=== PATIENT | male | born 1970 | race Caucasian/White ===

== ENCOUNTER 2016-09-29 10:12 | Inpatient (IN) | payer MEDICAID ==
[~2016-09-29] VITALS: Ht 182.9 cm; Wt 82.4 kg
[~2016-09-29 10:12] MED LIST: ALBUTEROL NEB; BROMIDE NEB; CARI-277 PO; MON10T PO; NOR10T PO; OMAL150S SC; OMEP20CA5 PO; PRED-188 PO; PRO-AIR IN; THEO200T26 PO; ZOLP10TA PO; [UNRECOGNIZED DRUG - CODE] PO
[2016-09-29 11:08] LABS: Basophils # (auto) 0 uL; Basophils % (auto) 0.3 % (0.0-2.0); Eosinophils # (auto) 0.3 uL; Eosinophils % (auto) 2.2 % (0.0-7.0); Hematocrit 48.2 % (41.0-53.0); Hemoglobin 15.8 g/dL (13.5-17.5); Lymphocytes # (auto) 2.4 uL; Lymphocytes % (auto) 16.2 % (10.0-50.0); Mean Corpuscular Hemoglobin 29.1 pg (28.0-32.0); Mean Corpuscular Hgb Conc. 32.9 g/dL (32.0-36.0); Mean Corpuscular Volume 88.6 fL (80.0-100.0); Monocytes # (auto) 0.8 uL; Monocytes % (auto) 5.8 % (0.0-12.0); Neutrophils % (auto) 75.5 % (37.0-80.0); Platelet Count (auto) 324 10^3/uL (140-450); Red Cell Distribution Width 14.1 % (11.6-16.0); White Blood Cell 14.6 10^3/uL (4.4-10.8)
[2016-09-29 11:46] LABS: Albumin 3.8 g/dL (3.4-5.0); BUN/Creatinine Ratio 12.6; Bilirubin, Total 0.4 mg/dL (0.2-1.0); Calcium 8.9 mg/dL (8.5-10.1); Total Protein 7.8 g/dL (6.4-8.2)
[2016-09-29] MEDS ORDERED: ALBUTEROL SULF 2.5 MG/0.5ML(0.5%) NEB SOLN NEB ONE (12:00)
[2016-09-29] MEDS ORDERED: IPRATROPIUM BROM 0.5 MG/2.5ML INH SOL NEB ONE (12:00)
[2016-09-29] MEDS ORDERED: SODIUM CHLORIDE 0.9% 1,000 ML IV ONE (12:00)
[2016-09-29] MEDS ORDERED: cefTRIAXone 1GM/50ML D5W 50 ML IV ONE (12:00)
[2016-09-29] MEDS: SODIUM CHLORIDE 0.9% 1,000 ML IV SCH (12:08)
[2016-09-29] MEDS ORDERED: MORPHINE SULF INJ 2 MG/ML SYRINGE 1ML IV PRN (12:15)
[2016-09-29] MEDS ORDERED: LORazepam 0.5 MG TAB PO PRN (12:15)
[2016-09-29] MEDS ORDERED: ACETAMINOPHEN 500 MG TAB PO PRN (12:15)
[2016-09-29] MEDS ORDERED: ALBUTEROL SULF 2.5 MG/0.5ML(0.5%) NEB SOLN NEB PRN (12:15)
[2016-09-29] MEDS ORDERED: TEMAZEPAM 15 MG CAP PO PRN (12:15)
[2016-09-29] MEDS ORDERED: OSELTAMIVIR 75 MG CAP PO ONE (12:15)
[2016-09-29] MEDS ORDERED: DEXTROSE (50%) 50ML SYRG IV PRN (12:15)
[2016-09-29] MEDS ORDERED: PROCHLORPERAZINE EDISYLATE 5 MG/ML 2ML VIAL IV PRN (12:15)
[2016-09-29] MEDS ORDERED: LACTULOSE 20Gm/30ML SOLN PO PRN (12:15)
[2016-09-29] MEDS ORDERED: NITROGLYCERIN 0.4 MG SL TAB SL PRN (12:15)
[2016-09-29] MEDS: HYDROcodone-ACET 5/325MG TAB PO PRN ×2 (13:18→22:09)
[2016-09-29] MEDS: ENOXAPARIN SOD 40 MG/0.4 ML SYRINGE SC SCH (13:18)
[2016-09-29] MEDS: LEVOFLOXACIN 500MG 100 ML IV SCH (13:18)
[2016-09-29] MEDS: methylPREDNISolone SOD SUCC 40 MG/ML VL IV SCH ×2 (13:21→18:10)
[2016-09-29 16:08] VITALS: BP 135/73
[2016-09-29 16:50] VITALS: BP 144/71
[2016-09-29] MEDS: ACCU-CHEK COMFORT CURVE STRIP VI SCH ×2 (17:00→22:14)
[2016-09-29] MEDS: InsuLIN REG 1unit/0.01ml Soln (100units/ml) SC SCH ×2 (17:00→22:19)
[2016-09-29] MEDS: MORPHINE SULF INJ 2 MG/ML SYRINGE 1ML IV PRN (18:31)
[2016-09-29] MEDS: ALBUTEROL SULF 2.5 MG/0.5ML(0.5%) NEB SOLN NEB SCH (19:35)
[2016-09-29] MEDS: IPRATROPIUM BROM 0.5 MG/2.5ML INH SOL NEB SCH (19:35)
[2016-09-29 20:00] VITALS: BP 112/66
[2016-09-29 22:00] VITALS: BP 112/66
[2016-09-29] MEDS ORDERED: THEOPHYLLINE 200 MG PO SCH ×2 (22:00)
[2016-09-29] MEDS: OSELTAMIVIR 75 MG CAP PO SCH (22:09)
[2016-09-30] MEDS: ALBUTEROL SULF 2.5 MG/0.5ML(0.5%) NEB SOLN NEB SCH ×3 (00:40→13:46)
[2016-09-30] MEDS: IPRATROPIUM BROM 0.5 MG/2.5ML INH SOL NEB SCH ×3 (00:47→13:46)
[2016-09-30] MEDS: methylPREDNISolone SOD SUCC 40 MG/ML VL IV SCH ×3 (01:44→13:24)
[2016-09-30] MEDS: SODIUM CHLORIDE 0.9% 1,000 ML IV SCH (01:51)
[2016-09-30 05:00] VITALS: BP 108/66
[2016-09-30 05:56] LABS: Basophils # (auto) 0 uL; Basophils % (auto) 0.3 % (0.0-2.0); Eosinophils # (auto) 0 uL; Hematocrit 45.6 % (41.0-53.0); Hemoglobin 15.1 g/dL (13.5-17.5); Lymphocytes % (auto) 9.1 % (10.0-50.0); Mean Corpuscular Hemoglobin 29.3 pg (28.0-32.0); Mean Corpuscular Hgb Conc. 33.1 g/dL (32.0-36.0); Mean Corpuscular Volume 88.5 fL (80.0-100.0); Mean Platelet Volume 8.5 fL (7.4-10.4); Monocytes # (auto) 0.1 uL; Monocytes % (auto) 0.8 % (0.0-12.0); Neutrophils # (auto) 10.2 uL; Neutrophils % (auto) 89.8 % (37.0-80.0); Platelet Count (auto) 303 10^3/uL (140-450); Red Cell Distribution Width 13.9 % (11.6-16.0); White Blood Cell 11.4 10^3/uL (4.4-10.8)
[2016-09-30 06:23] LABS: Albumin 3.3 g/dL (3.4-5.0); BUN/Creatinine Ratio 21.3; Bilirubin, Total 0.4 mg/dL (0.2-1.0); Calcium 9.1 mg/dL (8.5-10.1); Potassium 4.5 mmol/L (3.5-5.1); Total Protein 7.1 g/dL (6.4-8.2)
[2016-09-30] MEDS: ACCU-CHEK COMFORT CURVE STRIP VI SCH ×2 (06:27→11:30)
[2016-09-30] MEDS: InsuLIN REG 1unit/0.01ml Soln (100units/ml) SC SCH ×2 (06:27→11:30)
[2016-09-30 08:00] VITALS: BP 118/62
[2016-09-30 09:00] VITALS: BP 118/65
[2016-09-30] MEDS ORDERED: ITRACONAZOLE 100 MG CAP PO SCH (10:00)
[2016-09-30] MEDS ORDERED: CARISOPRODOL 350 MG TAB PO SCH (10:00)
[2016-09-30] MEDS ORDERED: MONTELUKAST SODIUM 10 MG TAB PO SCH (10:00)
[2016-09-30] MEDS ORDERED: PANTOPRAZOLE 40 MG TAB PO SCH (10:00)
[2016-09-30] MEDS ORDERED: OMEPRAZOLE 20MG/10ML ORAL SUSP PO SCH (10:00)
[2016-09-30] MEDS: OSELTAMIVIR 75 MG CAP PO SCH (10:41)
[2016-09-30] MEDS: ENOXAPARIN SOD 40 MG/0.4 ML SYRINGE SC SCH (10:42)
[2016-09-30] MEDS: MORPHINE SULF INJ 2 MG/ML SYRINGE 1ML IV PRN (10:42)
[2016-09-30] MEDS: LEVOFLOXACIN 500MG 100 ML IV SCH (10:47)
[2016-09-30 12:50] VITALS: BP 122/68
[2016-09-30 16:34] VITALS: BP 120/70
== END 2016-09-30 17:10 | disposition home or self-care (01) | DRG 720 ==
LOC: EDBD 10:12 → ER 10:13 → TELE 10:14 → TELE-WESTW 15:40
PROVIDERS: ADMIT Internal Medicine; ATTEND Internal Medicine
DX: A41.9 Sepsis, unspecified organism (principal); B44.9 Aspergillosis, unspecified; J44.0 Chronic obstructive pulmonary disease with (acute) lower respiratory infection; J18.9 Pneumonia, unspecified organism; J45.901 Unspecified asthma with (acute) exacerbation; J44.1 Chronic obstructive pulmonary disease with (acute) exacerbation; K21.9 Gastro-esophageal reflux disease without esophagitis; J20.9 Acute bronchitis, unspecified; E11.9 Type 2 diabetes mellitus without complications; F17.210 Nicotine dependence, cigarettes, uncomplicated; M19.90 Unspecified osteoarthritis, unspecified site; Z82.49 Family history of ischemic heart disease and other diseases of the circulatory system; Z88.2 Allergy status to sulfonamides
CPT/HCPCS: 36415; 71020; 80053; 80061; 82962; 83036; 85025; 87040; 93005; 94640; 96361; 96365; 99291; J0696; J1815; J1956

== ENCOUNTER 2018-06-10 07:15 | Emergency (ER) | payer MEDICAID ==
[~2018-06-10] VITALS: Ht 182.9 cm; Wt 83.9 kg
[~2018-06-10 07:15] MED LIST changes: -CARI-277 PO; -MON10T PO; -NOR10T PO; -OMAL150S SC; -OMEP20CA5 PO; -PRED-188 PO; -PRO-AIR IN; -THEO200T26 PO; -ZOLP10TA PO; -[UNRECOGNIZED DRUG - CODE] PO
[2018-06-10 07:41] VITALS: BP 115/80
== END 2018-06-10 08:10 | disposition home or self-care (01) ==
LOC: ER 07:15
DX: J02.9 Acute pharyngitis, unspecified (principal); J45.909 Unspecified asthma, uncomplicated; J44.9 Chronic obstructive pulmonary disease, unspecified; E11.9 Type 2 diabetes mellitus without complications; K21.9 Gastro-esophageal reflux disease without esophagitis; F17.210 Nicotine dependence, cigarettes, uncomplicated
CPT/HCPCS: 71046; 93005

== ENCOUNTER 2018-07-30 19:53 | Emergency (ER) | payer MEDICAID ==
[~2018-07-30] VITALS: Ht 182.9 cm; Wt 85.7 kg
[2018-07-30 20:14] VITALS: BP 116/64
[2018-07-30 22:13] LABS: Basophils # (auto) 0 uL; Basophils % (auto) 0.5 % (0.0-2.0); Eosinophils # (auto) 0.2 uL; Eosinophils % (auto) 2.2 % (0.0-7.0); Hematocrit 42.2 % (41.0-53.0); Hemoglobin 14.4 g/dL (13.5-17.5); Lymphocytes # (auto) 1.6 uL; Lymphocytes % (auto) 16.5 % (10.0-50.0); Mean Corpuscular Hgb Conc. 34.1 g/dL (32.0-36.0); Monocytes # (auto) 0.7 uL; Monocytes % (auto) 6.9 % (0.0-12.0); Neutrophils % (auto) 73.9 % (37.0-80.0); Platelet Count (auto) 322 10^3/uL (140-450); Red Cell Distribution Width 13.8 % (11.8-14.3); White Blood Cell 9.5 10^3/uL (4.4-10.8)
[2018-07-30 22:15] LABS: Albumin 3.5 g/dL (3.4-5.0); BUN/Creatinine Ratio 15.8; Calcium 8.4 mg/dL (8.5-10.1); Potassium 3.7 mmol/L (3.5-5.1)
[2018-07-30 22:17] LABS: Bilirubin, Total 0.3 mg/dL (0.2-1.0); Total Protein 7.6 g/dL (6.4-8.2)
[2018-07-30] MEDS ORDERED: cefTRIAXone SOD 1,000 MG VL IM ONE (23:00)
== END 2018-07-30 22:56 | disposition home or self-care (01) ==
LOC: ER 19:58
DX: L03.115 Cellulitis of right lower limb (principal); M19.90 Unspecified osteoarthritis, unspecified site; J44.9 Chronic obstructive pulmonary disease, unspecified; E11.9 Type 2 diabetes mellitus without complications; K21.9 Gastro-esophageal reflux disease without esophagitis; F17.210 Nicotine dependence, cigarettes, uncomplicated; Z88.2 Allergy status to sulfonamides
CPT/HCPCS: 36415; 80053; 85025; 93971; 96372; 99284; J0696

== ENCOUNTER 2019-03-28 10:13 | Inpatient (IN) | payer MEDICAID ==
[~2019-03-28] VITALS: Ht 182.9 cm; Wt 84.9 kg
[2019-03-28] MEDS ORDERED: methylPREDNISolone SOD SUCC 125 MG/2 ML VL IV ONE (10:30)
[2019-03-28] MEDS ORDERED: ALBUTEROL SULF 2.5 MG/0.5ML(0.5%) NEB SOLN HHN ONE (10:30)
[2019-03-28] MEDS ORDERED: IPRATROPIUM BROM 0.5 MG/2.5ML INH SOL HHN ONE (10:30)
[2019-03-28 11:13] LABS: Basophils # (auto) 0.1 uL; Basophils % (auto) 0.8 % (0.0-2.0); Eosinophils # (auto) 0.3 uL; Eosinophils % (auto) 3.3 % (0.0-7.0); Hematocrit 44.8 % (41.0-53.0); Hemoglobin 15.6 g/dL (13.5-17.5); Lymphocytes % (auto) 20.3 % (10.0-50.0); Mean Corpuscular Hgb Conc. 34.8 g/dL (32.0-36.0); Mean Corpuscular Volume 86.2 fL (80.0-100.0); Monocytes % (auto) 10.4 % (0.0-12.0); Neutrophils # (auto) 6.6 uL; Neutrophils % (auto) 65.2 % (37.0-80.0); Platelet Count (auto) 287 10^3/uL (140-450); Red Blood Cells 5.19 10^6/uL (4.5-5.90); Red Cell Distribution Width 13.9 % (11.8-14.3); White Blood Cell 10.1 10^3/uL (4.4-10.8)
[2019-03-28 11:35] LABS: Alanine Aminotransferase 16 U/L (16-61); Albumin 3.4 g/dL (3.4-5.0); Anion Gap 6 (5-15); Blood Urea Nitrogen 10 mg/dL (7-18); Calcium 8.8 mg/dL (8.5-10.1); Carbon Dioxide 26 mmol/L (21-32); Chloride 106 mmol/L (98-107); Glucose 94 mg/dL (74-106); Potassium 4.1 mmol/L (3.5-5.1); Sodium 138 mmol/L (136-145)
[2019-03-28 11:40] LABS: Alkaline Phosphatase 87 U/L (45-117); Aspartate Aminotransferase 13 U/L (15-37); BUN/Creatinine Ratio 13.2; Bilirubin, Total 0.4 mg/dL (0.2-1.0); GFR African American 141 mL/min; GFR Non-African American 117 mL/min; Total Protein 7.5 g/dL (6.4-8.2)
[2019-03-28] MEDS ORDERED: NITROGLYCERIN 0.4 MG SL TAB SL PRN (12:30)
[2019-03-28] MEDS ORDERED: HYDROcodone-ACET 5/325MG TAB PO PRN (12:30)
[2019-03-28] MEDS ORDERED: ACETAMINOPHEN 500 MG TAB PO PRN (12:30)
[2019-03-28] MEDS ORDERED: ONDANSETRON HCL 4 MG/2 ML VIAL IV PRN (12:30)
[2019-03-28] MEDS ORDERED: MORPHINE SULF INJ 2 MG/ML SYRINGE 1ML IV PRN ×2 (12:30)
[2019-03-28] MEDS ORDERED: methylPREDNISolone SOD SUCC 40 MG/ML VL IV ONE (12:45)
[2019-03-28] MEDS ORDERED: FAMOTIDINE 20 MG TAB PO ONE (12:45)
[2019-03-28] MEDS: cefTRIAXone 1GM/50ML D5W 50 ML IV SCH (13:30)
[2019-03-28] MEDS: AZITHROMYCIN 500MG/ 250ML 250 ML IV SCH (13:30)
[2019-03-28] MEDS: IPRATROPIUM BROM 0.5 MG/2.5ML INH SOL NEB SCH ×3 (14:57→22:55)
[2019-03-28] MEDS: ALBUTEROL SULF 2.5 MG/0.5ML(0.5%) NEB SOLN NEB SCH ×3 (14:57→22:55)
[2019-03-28 15:30] LABS: Alcohol, Urine < 3.0 mg/dL (0-5); Amphetamine Screen, Urine POSITIVE (NEGATIVE); Barbiturate Scree,Urine NEGATIVE (NEGATIVE); Benzodiazephine Screen, Urine NEGATIVE (NEGATIVE); Cannabinoid Screen, Urine NEGATIVE (NEGATIVE); Cocaine Screen, Urine NEGATIVE (NEGATIVE); Opiate Scree,Urine NEGATIVE (NEGATIVE); Phencyclidine Screen, Urine NEGATIVE (NEGATIVE)
[2019-03-28 17:12] VITALS: BP 98/58
[2019-03-28 17:13] VITALS: BP 98/58
--- NOTE | 2019-03-28 17:16 | NUR ---
RECEIVED PATIENT TO THE FLOOR AWAKE ALERT AND ORIENTED, INSTRUCTED THE PATIENT ON THE PLAN OF CARE. BED LOCKED IN LOWEST POSITION.
[2019-03-28 18:32] VITALS: BP 98/58
--- NOTE | 2019-03-28 19:45 | NUR ---
Opening Shift Note Assumed care of patient, awake and alert. No S/S of distress/SOB or pain. Bed in lowest locked position, side rails up x 2, call light within reach. Dinner tray provided, patient tolerating well. Specimen cup provided for sputum sample and to inform staff if any sputum obtained, patient verbalized understanding. Instructed on POC and to call for assist PRN, will continue to monitor for changes Q1hr and PRN.
[2019-03-28 21:00] VITALS: BP 118/68
[2019-03-28] MEDS: methylPREDNISolone SOD SUCC 40 MG/ML VL IV SCH (21:18)
--- NOTE | 2019-03-28 22:00 | NUR ---
Smoking AMA ANGÉLICA GR states they want to leave the floor Against Medical Advice (AMA) to go outside and smoke. Patient encouraged to stay on floor and not smoke. Patient advised of the risks and benefits of leaving AMA to smoke. Patient verbalized understanding and signed required smoking AMA form. Patient ambulated to elevator with steady gait and no s/s of distress. Will continue to monitor.
[2019-03-28] MEDS: BUDESONIDE (INHALATION) 0.5 MG/2 ML NEB NEB SCH (22:55)
--- NOTE | 2019-03-28 23:00 | NUR ---
Rounding Patient lying in bed, eyes closed, respirations even and unlabored, appears asleep. No s/s of distress. Bed in lowest locked position, side rails up x2, call light within reach. Will continue to monitor.
[2019-03-29 04:51] VITALS: BP 105/63
[2019-03-29] MEDS: IPRATROPIUM BROM 0.5 MG/2.5ML INH SOL NEB SCH ×5 (06:11→22:00)
[2019-03-29] MEDS: ALBUTEROL SULF 2.5 MG/0.5ML(0.5%) NEB SOLN NEB SCH ×5 (06:11→22:00)
[2019-03-29] MEDS: BUDESONIDE (INHALATION) 0.5 MG/2 ML NEB NEB SCH ×2 (06:12→18:21)
[2019-03-29 06:40] LABS: Calcium 9.2 mg/dL (8.5-10.1); Potassium 4.3 mmol/L (3.5-5.1)
[2019-03-29 06:42] LABS: BUN/Creatinine Ratio 19.8
--- NOTE | 2019-03-29 07:15 | NUR ---
Closing Note Patient lying in bed, eyes closed, respirations even and unlabored, appears asleep. No s/s of distress. Bed in lowest locked position, side rails up x2, call light within reach. Care endorsed to dayshift RN.
[2019-03-29 08:00] VITALS: BP 113/60
--- NOTE | 2019-03-29 08:00 | NUR ---
OPENING NOTE ASSUMED CARE OF PATIENT AWAKE ALERT AND ORIENTED. NO S/S OF DISTRESS NOTED. PT HAS A COMPLAINT OF CHRONIC BACK PAIN RATED A 7/10. WILL MEDICATE PER MAR AND MD ORDER. PT UPDATED ON POC FOR THE DAY AND ALL QUESTIONS ANSWERED. BED IS IN LOWEST, LOCKED POSITION WITH SIDE RAILS UP X2 AND CALL LIGHT WITHIN REACH. WILL CONTINUE TO MONITOR Q1H AND PRN.
[2019-03-29] MEDS: methylPREDNISolone SOD SUCC 40 MG/ML VL IV SCH ×2 (10:02→21:54)
[2019-03-29] MEDS: FAMOTIDINE 20 MG TAB PO SCH (10:02)
[2019-03-29] MEDS: cefTRIAXone 1GM/50ML D5W 50 ML IV SCH (10:03)
[2019-03-29] MEDS: AZITHROMYCIN 500MG/ 250ML 250 ML IV SCH (10:03)
--- NOTE | 2019-03-29 10:44 | NUR ---
PATIENT C/O SOB PATIENT C/O FEELING SOB. INSPIRATORY AND EXPIRATORY WHEEZING NOTED UPON AUSCULTATION THROUGHOUT LUNG PORRAS. PATIENT HAD JUST RETURNED FROM GOING OUTSIDE TO SMOKE. DISCUSSED WITH PATIENT CORRELATION BETWEEN BREATHING AND RESPIRATORY STATUS. PT VERBALIZED UNDERSTANDING. SPOKE TO RT. BREATHING TREATMENT TO BE ADMINISTERED. Addendum: 03/29/19 at 1157 by Jaelyn Ortiz RN RN SATURATING 98% ON RA.
[2019-03-29 11:50] VITALS: BP 115/70
[2019-03-29 12:43] VITALS: BP 116/68
[2019-03-29 16:25] VITALS: BP 116/64
--- NOTE | 2019-03-29 19:30 | NUR ---
Opening Shift Note Assumed care of patient, eyes closed, respirations even and unlabored, appears asleep. No S/S of distress/SOB or pain. Bed in lowest locked position, side rails up x 2, call light within reach. Instructed on POC and to call for assist PRN, will continue to monitor for changes Q1hr and PRN.
--- NOTE | 2019-03-29 21:58 | NUR ---
Sputum sample Specimen collected and sent to lab. Will continue care.
[2019-03-29 22:00] VITALS: BP 132/63
--- NOTE | 2019-03-29 22:13 | NUR ---
RT NOTE WOKE PT UP TO GIVE BREATHING TX PT REFUSED JUST WANTS TO REST NO RESP DISTRESS NOTED.
[2019-03-30 04:52] VITALS: BP 127/76
[2019-03-30] MEDS: ALBUTEROL SULF 2.5 MG/0.5ML(0.5%) NEB SOLN NEB SCH ×5 (05:58→21:42)
[2019-03-30] MEDS: BUDESONIDE (INHALATION) 0.5 MG/2 ML NEB NEB SCH ×3 (05:58→21:44)
[2019-03-30] MEDS: IPRATROPIUM BROM 0.5 MG/2.5ML INH SOL NEB SCH ×5 (05:58→21:42)
[2019-03-30 07:55] LABS: Basophils # (auto) 0.1 uL; Basophils % (auto) 0.5 % (0.0-2.0); Eosinophils # (auto) 0 uL; Hematocrit 42.1 % (41.0-53.0); Hemoglobin 14.4 g/dL (13.5-17.5); Lymphocytes % (auto) 4.8 % (10.0-50.0); Mean Corpuscular Hemoglobin 29.9 pg (28.0-32.0); Mean Corpuscular Hgb Conc. 34.2 g/dL (32.0-36.0); Mean Corpuscular Volume 87.3 fL (80.0-100.0); Monocytes # (auto) 0.6 uL; Monocytes % (auto) 2.8 % (0.0-12.0); Neutrophils % (auto) 91.9 % (37.0-80.0); Platelet Count (auto) 320 10^3/uL (140-450); Red Blood Cells 4.82 10^6/uL (4.5-5.90); Red Cell Distribution Width 13.9 % (11.8-14.3); White Blood Cell 21.8 10^3/uL (4.4-10.8)
[2019-03-30 08:00] VITALS: BP 120/69
[2019-03-30 08:06] LABS: Albumin 3.1 g/dL (3.4-5.0); BUN/Creatinine Ratio 28.4; Calcium 9.1 mg/dL (8.5-10.1); Potassium 4.4 mmol/L (3.5-5.1)
[2019-03-30 08:18] LABS: Bilirubin, Total 0.1 mg/dL (0.2-1.0); Total Protein 7.1 g/dL (6.4-8.2)
[2019-03-30 09:00] VITALS: BP 120/69
[2019-03-30] MEDS: cefTRIAXone 1GM/50ML D5W 50 ML IV SCH (09:56)
[2019-03-30] MEDS: AZITHROMYCIN 500MG/ 250ML 250 ML IV SCH (09:56)
[2019-03-30] MEDS: FAMOTIDINE 20 MG TAB PO SCH (09:56)
[2019-03-30] MEDS: methylPREDNISolone SOD SUCC 40 MG/ML VL IV SCH ×2 (09:56→21:33)
[2019-03-30 13:00] VITALS: BP 124/65
[2019-03-30 17:00] VITALS: BP 124/72
--- NOTE | 2019-03-30 19:30 | NUR ---
Opening Shift Note Assumed care of patient, awake and alert. No S/S of distress/SOB or pain. Bed in lowest locked position, side rails up x 2, call light within reach. Instructed on POC and to call for assist PRN, will continue to monitor for changes Q1hr and PRN.
[2019-03-30 22:00] VITALS: BP 130/73
[2019-03-31 05:00] VITALS: BP 119/76
[2019-03-31 06:11] LABS: Basophils # (auto) 0 uL; Basophils % (auto) 0.3 % (0.0-2.0); Eosinophils # (auto) 0 uL; Hematocrit 43.1 % (41.0-53.0); Hemoglobin 14.9 g/dL (13.5-17.5); Lymphocytes # (auto) 1.2 uL; Lymphocytes % (auto) 7.6 % (10.0-50.0); Mean Corpuscular Hemoglobin 30.5 pg (28.0-32.0); Mean Corpuscular Hgb Conc. 34.6 g/dL (32.0-36.0); Monocytes # (auto) 0.8 uL; Monocytes % (auto) 4.8 % (0.0-12.0); Neutrophils % (auto) 87.3 % (37.0-80.0); Nucleated Red Blood Cells % 0.1 %; Platelet Count (auto) 354 10^3/uL (140-450); Red Blood Cells 4.89 10^6/uL (4.5-5.90); White Blood Cell 16.1 10^3/uL (4.4-10.8)
[2019-03-31 06:21] LABS: Albumin 3.2 g/dL (3.4-5.0); BUN/Creatinine Ratio 22.4; Calcium 9.1 mg/dL (8.5-10.1); Potassium 4.6 mmol/L (3.5-5.1)
[2019-03-31 06:24] LABS: Bilirubin, Total 0.1 mg/dL (0.2-1.0); Total Protein 7.3 g/dL (6.4-8.2)
[2019-03-31] MEDS: ALBUTEROL SULF 2.5 MG/0.5ML(0.5%) NEB SOLN NEB SCH ×5 (06:44→22:47)
[2019-03-31] MEDS: IPRATROPIUM BROM 0.5 MG/2.5ML INH SOL NEB SCH ×5 (06:44→22:47)
--- NOTE | 2019-03-31 07:30 | NUR ---
RECEIVED REPORT FROM NIGHT NURSE. PATIENT RESTING IN BED, NO DISTRESS NOTED. WILL CONTINUE TO MONITOR.
--- NOTE | 2019-03-31 08:15 | NUR ---
Opening Shift Note Assumed care of patient, awake and alert. No S/S of distress/SOB or pain noted. Bed in lowest position, bed rails up x2, call light in reach. Instructed on POC and to call for assist PRN, will continue to monitor for changes Q1hr and PRN.
[2019-03-31 09:00] VITALS: BP 115/71
[2019-03-31] MEDS: cefTRIAXone 1GM/50ML D5W 50 ML IV SCH (09:35)
[2019-03-31] MEDS: methylPREDNISolone SOD SUCC 40 MG/ML VL IV SCH ×2 (09:35→21:16)
[2019-03-31] MEDS: FAMOTIDINE 20 MG TAB PO SCH (09:38)
[2019-03-31] MEDS: AZITHROMYCIN 500MG/ 250ML 250 ML IV SCH (09:45)
[2019-03-31] MEDS: BUDESONIDE (INHALATION) 0.5 MG/2 ML NEB NEB SCH ×2 (10:12→18:56)
[2019-03-31 13:00] VITALS: BP 119/72
[2019-03-31 17:00] VITALS: BP 120/78
--- NOTE | 2019-03-31 19:45 | NUR ---
Opening Shift Note Assumed care of patient, awake and alert, oriented x 4. On room air with even and unlabored respirations. No S/S of distress/SOB or pain. Patient ambulates independently. Bed low locked position with side rails up x2 and call light within reach. Instructed on POC and to call for assist PRN, will continue to monitor for changes Q1hr and PRN.
[2019-03-31 21:34] VITALS: BP 124/70
[2019-04-01 05:23] VITALS: BP 120/71
[2019-04-01] MEDS: IPRATROPIUM BROM 0.5 MG/2.5ML INH SOL NEB SCH ×2 (06:04→09:46)
[2019-04-01] MEDS: BUDESONIDE (INHALATION) 0.5 MG/2 ML NEB NEB SCH (06:04)
[2019-04-01] MEDS: ALBUTEROL SULF 2.5 MG/0.5ML(0.5%) NEB SOLN NEB SCH ×2 (06:04→09:47)
--- NOTE | 2019-04-01 07:00 | NUR ---
Closing Note patient resting in bed with even and unlabored respirations, no s/s of distress. Endorsed care to day shift RN.
--- NOTE | 2019-04-01 07:30 | NUR ---
Patient sitting in bed, awake, oriented x4, no acute distress noted.
[2019-04-01] MEDS: cefTRIAXone 1GM/50ML D5W 50 ML IV SCH (08:43)
[2019-04-01 09:09] VITALS: BP 122/77
[2019-04-01] MEDS: methylPREDNISolone SOD SUCC 40 MG/ML VL IV SCH (09:55)
[2019-04-01] MEDS: AZITHROMYCIN 500MG/ 250ML 250 ML IV SCH (09:55)
[2019-04-01] MEDS: FAMOTIDINE 20 MG TAB PO SCH (09:55)
--- NOTE | 2019-04-01 10:00 | NUR ---
Dr. Mccoy at bedside. explained to patient the benefits of not smoking. Dr. Mccoy to discharge the patient today.
[2019-04-01 10:17] VITALS: BP 122/77
--- NOTE | 2019-04-01 11:35 | NUR ---
Discharge instructions given as ordered. Encourage to follow up with PMD as instructed. All questions and concerns addressed. Patient verbalized understanding. Medication reconciliation form completed and copy given to patient. IV removed with catheter intact, pressure dressing applied. Telemetry unit returned to ICU. Patient is ambulatory, steady gait noted, patient refused to be taken to vehicle via wheelchair, patient with all personal belongings. No distress noted at time of departure.
--- NOTE | 2019-04-01 11:45 | NUR ---
Estimated needs based on CBW 84.9 kg for adult maintenance factors/COPD [id number] kcal/d (23-25 kcal/kg) 85-108 g protein/d (0.8-1.0 g/kg) Addendum: 04/01/19 at [address] Amended: Links added.
== END 2019-04-01 11:35 | disposition home or self-care (01) | DRG 133 ==
LOC: ER 10:13 → TELE 10:14 → TELE-WESTW 16:54
PROVIDERS: ADMIT Nurse Practitioner Acute Care; ATTEND Internal Medicine
DX: J96.00 Acute respiratory failure, unspecified whether with hypoxia or hypercapnia (principal); J45.902 Unspecified asthma with status asthmaticus; E44.1 Mild protein-calorie malnutrition; I50.9 Heart failure, unspecified; J44.1 Chronic obstructive pulmonary disease with (acute) exacerbation; K21.9 Gastro-esophageal reflux disease without esophagitis; M19.90 Unspecified osteoarthritis, unspecified site; E11.9 Type 2 diabetes mellitus without complications; F17.210 Nicotine dependence, cigarettes, uncomplicated; Z82.49 Family history of ischemic heart disease and other diseases of the circulatory system; Z91.19 Patient's noncompliance with other medical treatment and regimen; Z88.2 Allergy status to sulfonamides
CPT/HCPCS: 36415; 71045; 80048; 80053; 80307; 84484; 85025; 87070; 87205; 93005; 93306; 94640; 94644; 94761; 96374; 96376; 99291; G0378; J0696

== ENCOUNTER 2019-09-28 09:13 | Emergency (ER) | payer SELFPAY ==
[~2019-09-28] VITALS: Ht 182.9 cm; Wt 109.8 kg
[2019-09-28 09:23] VITALS: BP 133/74
[2019-09-28] MEDS ORDERED: IPRATROPIUM BROM 0.5 MG/2.5ML INH SOL NEB ONE (10:00)
[2019-09-28] MEDS ORDERED: ALBUTEROL SULF 2.5 MG/0.5ML(0.5%) NEB SOLN NEB ONE (10:00)
== END 2019-09-28 10:22 | disposition home or self-care (01) ==
LOC: ER 09:13
DX: J44.1 Chronic obstructive pulmonary disease with (acute) exacerbation (principal); K21.9 Gastro-esophageal reflux disease without esophagitis; F17.210 Nicotine dependence, cigarettes, uncomplicated; M19.90 Unspecified osteoarthritis, unspecified site; Z76.0 Encounter for issue of repeat prescription; Z88.2 Allergy status to sulfonamides
CPT/HCPCS: 94640; 99283; J7644

== ENCOUNTER 2019-10-29 21:18 | Inpatient (IN) | payer MEDICAID ==
[~2019-10-29] VITALS: Ht 182.9 cm; Wt 97.1 kg
[2019-10-29] MEDS ORDERED: ALBUTEROL SULF 2.5 MG/0.5ML(0.5%) NEB SOLN NEB ONE ×2 (22:00→22:30)
[2019-10-29] MEDS ORDERED: IPRATROPIUM BROM 0.5 MG/2.5ML INH SOL NEB ONE (22:00)
[2019-10-29] MEDS ORDERED: methylPREDNISolone SOD SUCC 125 MG/2 ML VL IV ONE (22:15)
[2019-10-29 22:29] LABS: Basophils # (auto) 0.1 10 ^3/uL (0-0.2); Basophils % (auto) 1.1 % (0.0-2.0); Eosinophils # (auto) 0.5 10 ^3/uL (0-0.8); Eosinophils % (auto) 7.5 % (0.0-7.0); Hematocrit 46.2 % (41.0-53.0); Hemoglobin 15.3 g/dL (13.5-17.5); Lymphocytes # (auto) 1.6 10 ^3/uL (0.4-5.4); Mean Corpuscular Hemoglobin 28.6 pg (28.0-32.0); Mean Corpuscular Volume 86.6 fL (80.0-100.0); Monocytes # (auto) 0.6 10 ^3/uL (0-1.3); Monocytes % (auto) 9.4 % (0.0-12.0); Nucleated Red Blood Cells % 0.1 %; Platelet Count (auto) 244 10^3/uL (140-450); Red Blood Cells 5.34 10^6/uL (4.5-5.90); Red Cell Distribution Width 14.8 % (11.8-14.3); White Blood Cell 6.8 10^3/uL (4.4-10.8)
[2019-10-29 22:42] LABS: Albumin 3.7 g/dL (3.4-5.0); BUN/Creatinine Ratio 10.2; Calcium 8.9 mg/dL (8.5-10.1); Potassium 3.8 mmol/L (3.5-5.1)
[2019-10-29 22:45] LABS: Bilirubin, Total 0.4 mg/dL (0.2-1.0); Total Protein 7.4 g/dL (6.4-8.2)
[2019-10-29 23:26] LABS: INR 1.06 (0.9-1.15); Partial Thromboplastin Time 28.6 sec (23.64-32.05)
[2019-10-29] MEDS ORDERED: SODIUM CHLORIDE 0.9% 1,000 ML IV ONE (23:45)
[2019-10-29] MEDS ORDERED: SODIUM CHLORIDE 0.9% 500 ML IV ONE (23:45)
[2019-10-30] VITALS (18 sets, daily range): BP systolic 110–127; BP diastolic 54–73
[2019-10-30] MEDS ORDERED: levoFLOXacin 750MG 150 ML IV ONE (00:15)
[2019-10-30] MEDS ORDERED: ONDANSETRON HCL 4 MG/2 ML VIAL IV PRN (02:30)
[2019-10-30] MEDS ORDERED: ALBUTEROL SULF 2.5 MG/0.5ML(0.5%) NEB SOLN NEB PRN ×4 (02:30→21:15)
[2019-10-30] MEDS ORDERED: TEMAZEPAM 15 MG CAP PO PRN (02:30)
--- NOTE | 2019-10-30 03:17 | NUR ---
MS admit from ER ANGÉLICA GR admitted to tele/MS. Patient oriented to primary RN, unit, room, bed, and unit policies regarding patient care and visiting hours. Patient weighed by bed scale and encouraged to call if they need something. All questions and concerns addressed, patient verbalized understanding. Patient placed on 2lpm O2 via NC for SOB upon exertion. Bed locked in lowest position and bed rails up x2. Call light within reach. IV placed while in ER in right hand, 20G, saline locked, intact, patent with no s/s of pain or discomfort. Will continue to monitor for changes Q1H and PRN.
[2019-10-30 05:11] LABS: Urine WBC None Seen /hpf (0 - 3)
[2019-10-30] MEDS ORDERED: ALBU2TAB4 PO (05:28)
[2019-10-30 05:38] LABS: Urine Bacteria NONE SEEN /hpf (None Seen); Urine Blood Negative /uL (Negative); Urine Specific Gravity 1.025 (1.001-1.035)
[2019-10-30] MEDS: IPRATROPIUM BROM 0.5 MG/2.5ML INH SOL NEB SCH ×4 (05:48→22:35)
[2019-10-30] MEDS: ALBUTEROL SULF 2.5 MG/0.5ML(0.5%) NEB SOLN NEB SCH ×4 (05:49→22:35)
[2019-10-30] MEDS: FAMOTIDINE 20 MG TAB PO SCH ×2 (08:41→21:42)
[2019-10-30] MEDS: ACETAMINOPHEN 325 MG TAB PO PRN (08:42)
[2019-10-30] MEDS ORDERED: methylPREDNISolone SOD SUCC 125 MG/2 ML VL IV SCH (10:00)
--- NOTE | 2019-10-30 12:59 | NUR ---
ss consult no PCP Per consult no PCP. Shirley Page to see patient for PCP prior to discharge for PCP. Addendum: 10/30/19 at 1300 by Shirley GOMEZ Amended: Links added.
[2019-10-30] MEDS ORDERED: IPRATROPIUM BROM 0.5 MG/2.5ML INH SOL NEB PRN (14:45)
[2019-10-30] MEDS ORDERED: guaiFENesin-DM 100/10mg/5ml SYR PO PRN (14:45)
[2019-10-30] MEDS ORDERED: SODIUM CHLORIDE 0.9 % NEB SOLN 3ML NEB ONE ×3 (16:27→16:53)
[2019-10-30] MEDS ORDERED: ALBUTEROL SULF 2.5 MG/0.5ML(0.5%) NEB SOLN NEB ONE (16:35)
[2019-10-30] MEDS ORDERED: methylPREDNISolone SOD SUCC 125 MG/2 ML VL ONE (16:58)
--- NOTE | 2019-10-30 16:58 | NUR ---
Respiratory Distress I was alerted that the patient started having Respiratory Distress at about 1630hrs. Went to assess the patient and he was visibly in distress with auditory wheezing. The was out of character for the patient as he had no difficulty at all most of the day, laughing and talking to his roommate. The patient's roommate stated he went to the bathroom and after he came back to bed he started having respiratory distress. Paged Dr. Lambert twice, I believe she already left for the day. Called the bookkeeper receptionist provider. While waiting Spoke to the charge nurse Adam and the Sugar Refiner was called as the dynamics ax technical architect suggested calling a code assist. The Sugar Refiner brought along Dr. Ro who gave orders for the Bi-Pap, breathing treatments, changed his Solumedrol, and ordered the patient be transferred to the ICU. Will continue to monitor.
[2019-10-30] MEDS ORDERED: methylPREDNISolone SOD SUCC 125 MG/2 ML VL IV ONE (17:00)
--- NOTE | 2019-10-30 18:00 | NUR ---
TOVA PT TRANSFER TO ICU ANGÉLICA GR transferred to 104 via rpickerel on border guard and Non-rebreather mask. Patient connected to bedside monitor, weighed, and placed on Bipap mask by RT. All patient personal belongings transferred with patient. Physical assessment complete. Patient displaying increased work of breathing and accessory muscle use. Oxygen saturation 97%. HR 106, RR 27, T 98.6 Ax. Bed locked in lowest position, call light within reach. Patient instructed to call for assistance. Patient verbalized understanding. Will continue to monitor.
--- NOTE | 2019-10-30 18:00 | NUR ---
Patient Transferred Transferred the patient to the ICU bed 104 at approximately 1800hrs. The patient's breathing has eased since being on the Bi-Pap. Called and gave report to Julee, applied our monitor to the patient, and waited for RT prior to transfer. Patient transferred without incident, RT placed him back on the Bi-Pap after the transfer. Called Dr. Ro and updated him on the situation.
[2019-10-30] MEDS: BUDESONIDE (INHALATION) 0.5 MG/2 ML NEB NEB SCH (18:53)
--- NOTE | 2019-10-30 21:22 | NUR ---
PT DESIRES TO GET OFF THE BIPAP TO EAT, TR NOTIFIED, PLACED ON 6L FM, SATS DROP TO 94%; BILATERAL LOUD WHEEZING. PT EXPLAINED THAT HIS CONDITION IS SERIOUS, NEARLY INTUBATED, AND HIS COOPERATION IS NEEDED TO IMPROVE HIS RESPIRATORY STATUS.
[2019-10-30] MEDS: methylPREDNISolone SOD SUCC 40 MG/ML VL IV SCH (21:42)
[2019-10-30] MEDS ORDERED: methylPREDNISolone SOD SUCC 40 MG/ML VL IV SCH (22:00)
[2019-10-31] VITALS (18 sets, daily range): BP systolic 99–119; BP diastolic 54–64
[2019-10-31] MEDS ORDERED: levoFLOXacin 500MG 100 ML IV SCH (01:00)
[2019-10-31] MEDS: ALBUTEROL SULF 2.5 MG/0.5ML(0.5%) NEB SOLN NEB SCH ×6 (02:11→22:33)
[2019-10-31] MEDS: IPRATROPIUM BROM 0.5 MG/2.5ML INH SOL NEB SCH ×6 (02:11→22:33)
[2019-10-31] MEDS: methylPREDNISolone SOD SUCC 40 MG/ML VL IV SCH ×4 (04:00→21:32)
[2019-10-31 04:05] LABS: Basophils # (auto) 0 10 ^3/uL (0-0.2); Eosinophils # (auto) 0 10 ^3/uL (0-0.8); Hematocrit 42.8 % (41.0-53.0); Hemoglobin 14.1 g/dL (13.5-17.5); Lymphocytes # (auto) 0.9 10 ^3/uL (0.4-5.4); Lymphocytes % (auto) 4.9 % (10.0-50.0); Mean Corpuscular Hemoglobin 28.7 pg (28.0-32.0); Mean Corpuscular Hgb Conc. 32.9 g/dL (32.0-36.0); Mean Corpuscular Volume 87.4 fL (80.0-100.0); Monocytes # (auto) 0.4 10 ^3/uL (0-1.3); Monocytes % (auto) 2.4 % (0.0-12.0); Neutrophils # (auto) 16.7 10 ^3/uL (1.6-8.6); Neutrophils % (auto) 92.7 % (37.0-80.0); Platelet Count (auto) 240 10^3/uL (140-450)
[2019-10-31 04:33] LABS: BUN/Creatinine Ratio 21.3; Calcium 8.6 mg/dL (8.5-10.1); Potassium 4.3 mmol/L (3.5-5.1)
[2019-10-31] MEDS: BUDESONIDE (INHALATION) 0.5 MG/2 ML NEB NEB SCH ×2 (06:12→22:34)
--- NOTE | 2019-10-31 07:00 | NUR ---
REPORT RECEIVED FROM AIRPORT MAINTENANCE CHIEF NURSE. PATIENT RESTING IN BED AT THIS TIME. RESPIRATIONS EVEN AND UNLABORED. PATIENT ASLEEP AT THIS TIME WITH NO DISTRESS NOTED. BED IN LOW POSITION, CALL LIGHT IN REACH. WILL CONTINUE TO MONITOR.
--- NOTE | 2019-10-31 08:45 | NUR ---
PATIENT PLACED ON 5 LITERS NASAL CANULA,SATURATIONS 98%. WILL CONTINUE TO MONITOR.
[2019-10-31] MEDS: FAMOTIDINE 20 MG TAB PO SCH ×2 (10:00→21:32)
--- NOTE | 2019-10-31 11:37 | NUR ---
DR GUZMAN AT BEDSIDE TO ASSESS PATIENT AND DISCUSS PLAN OF CARE. PER MD PATIENT CAN DOWNGRADE TO TELEMETRY. ALL ORDERS NOTED IN CHART.
--- NOTE | 2019-10-31 12:56 | NUR ---
UP TO CHAIR WITH NURSE STANDBY ASSIST THAT WAS NOT NEEDED. VITAL SIGNS STABLE AND PATIENT TOLERATED WELL. NO NOTED SOB. WILL CONTINUE TO MONITOR.
--- NOTE | 2019-10-31 16:37 | NUR ---
PATIENT TRANSPORTED TO TELEMETRY FLOOR VIA WHEELCHAIR CONNECTED TO TELEMETRY BOX 53 AND PORTABLE OXYGEN. NO SIGNS OF DISTRESS NOTED. [facility] NURSE MOHAN AWARE OF PATIENT ARRIVAL.
--- NOTE | 2019-10-31 16:42 | NUR ---
PT ARRIVED ON FLOOR VIA WHEEL CHAIR FROM ICU, NO DISTRESS NOTED. PT REPORTS NO PAIN AT THIS TIME. PT A AND O X 4, SKIN IN TACT. PT REPORTS HE DOES NOT THINK HE IS ABLE TO USE BATHROOM AND WANTS URINAL. URINAL BROUGHT. PT ORIENTED TO UNIT AND CALL LIGHT. VITALS:T 98.8, 110/60, HR 84, RR 18, 02 92% ON 2L NC, PT O2 INCREASED TO 3 L NC, WILL CONTINUE TO MONITOR. Signed: 10/31/19 at 1645 by LIBRADO MCLAUGHLIN RN
--- NOTE | 2019-10-31 19:35 | NUR ---
Opening Shift Note Assumed care of patient, awake and alert. No S/S of distress/SOB or pain. Bed in lowest locked position, side rails up x2, call light within reach. Instructed on POC and to call for assist PRN, will continue to monitor for changes Q1hr and PRN.
[2019-11-01] MEDS: levoFLOXacin 750MG 150 ML IV SCH (01:01)
[2019-11-01] MEDS: IPRATROPIUM BROM 0.5 MG/2.5ML INH SOL NEB SCH ×6 (02:14→22:18)
[2019-11-01] MEDS: ALBUTEROL SULF 2.5 MG/0.5ML(0.5%) NEB SOLN NEB SCH ×6 (02:15→22:18)
--- NOTE | 2019-11-01 03:59 | NUR ---
Closing Note Patient lying in bed, eyes closed, respirations even and unlabored, appears asleep. Patient awakens to name and touch. No s/s of distress. Care endorsed to Zeke GREGORIO for continuation of care.
[2019-11-01] MEDS: methylPREDNISolone SOD SUCC 40 MG/ML VL IV SCH ×4 (04:28→21:08)
[2019-11-01 05:00] VITALS: BP 113/61
[2019-11-01 06:40] LABS: Basophils # (auto) 0 10 ^3/uL (0-0.2); Basophils % (auto) 0.1 % (0.0-2.0); Eosinophils # (auto) 0 10 ^3/uL (0-0.8); Hematocrit 43.5 % (41.0-53.0); Hemoglobin 14.3 g/dL (13.5-17.5); Lymphocytes # (auto) 0.7 10 ^3/uL (0.4-5.4); Lymphocytes % (auto) 4.6 % (10.0-50.0); Mean Corpuscular Hemoglobin 28.7 pg (28.0-32.0); Mean Corpuscular Hgb Conc. 32.8 g/dL (32.0-36.0); Mean Corpuscular Volume 87.6 fL (80.0-100.0); Monocytes # (auto) 0.5 10 ^3/uL (0-1.3); Monocytes % (auto) 3.3 % (0.0-12.0); Neutrophils # (auto) 13.6 10 ^3/uL (1.6-8.6); Platelet Count (auto) 243 10^3/uL (140-450); Red Blood Cells 4.97 10^6/uL (4.5-5.90); Red Cell Distribution Width 14.8 % (11.8-14.3); White Blood Cell 14.8 10^3/uL (4.4-10.8)
[2019-11-01] MEDS: BUDESONIDE (INHALATION) 0.5 MG/2 ML NEB NEB SCH ×2 (06:52→19:25)
[2019-11-01 06:54] LABS: Magnesium 2.2 mg/dL (1.6-2.6); Potassium 4.1 mmol/L (3.5-5.1)
[2019-11-01 08:47] VITALS: BP 121/68
[2019-11-01] MEDS: FAMOTIDINE 20 MG TAB PO SCH ×2 (09:13→21:08)
[2019-11-01] MEDS: ACETAMINOPHEN 325 MG TAB PO PRN (09:13)
[2019-11-01 12:39] VITALS: BP 125/68
--- NOTE | 2019-11-01 12:51 | NUR ---
PT REPORTS 5/10 BACK PAIN, PAIN MEDS AVAILABLE, CALLED DR GUZMAN AND NOTIFIED MD JUANCHO AWARE, NEW ORDERS FOR NORCO 5 Q 4.
[2019-11-01] MEDS: HYDROcodone-ACET 5/325MG TAB PO PRN ×3 (13:04→21:22)
[2019-11-01] MEDS ORDERED: DEXTROSE (50%) 50ML SYRG IV PRN (14:00)
[2019-11-01 16:45] VITALS: BP 119/68
[2019-11-01] MEDS: InsuLIN REG 1unit/0.01ml Soln (100units/ml) SC SCH ×2 (16:50→21:23)
[2019-11-01] MEDS: ACCU-CHEK COMFORT CURVE STRIP VI SCH ×2 (16:51→21:08)
[2019-11-01 22:00] VITALS: BP 116/63
[2019-11-02] MEDS: levoFLOXacin 750MG 150 ML IV SCH (00:31)
[2019-11-02] MEDS: ALBUTEROL SULF 2.5 MG/0.5ML(0.5%) NEB SOLN NEB SCH ×6 (02:00→22:34)
[2019-11-02] MEDS: IPRATROPIUM BROM 0.5 MG/2.5ML INH SOL NEB SCH ×6 (02:00→22:34)
[2019-11-02] MEDS: methylPREDNISolone SOD SUCC 40 MG/ML VL IV SCH ×3 (03:56→17:06)
[2019-11-02 05:00] VITALS: BP 107/65
[2019-11-02 05:30] LABS: Basophils # (auto) 0 10 ^3/uL (0-0.2); Eosinophils # (auto) 0 10 ^3/uL (0-0.8); Lymphocytes # (auto) 0.8 10 ^3/uL (0.4-5.4); Lymphocytes % (auto) 8.1 % (10.0-50.0); Mean Corpuscular Hemoglobin 29.4 pg (28.0-32.0); Mean Corpuscular Volume 86.4 fL (80.0-100.0); Monocytes # (auto) 0.4 10 ^3/uL (0-1.3); Monocytes % (auto) 4.3 % (0.0-12.0); Neutrophils # (auto) 8.9 10 ^3/uL (1.6-8.6); Neutrophils % (auto) 87.6 % (37.0-80.0); Platelet Count (auto) 242 10^3/uL (140-450); Red Blood Cells 5.09 10^6/uL (4.5-5.90); Red Cell Distribution Width 14.4 % (11.8-14.3); White Blood Cell 10.1 10^3/uL (4.4-10.8)
[2019-11-02] MEDS: ACCU-CHEK COMFORT CURVE STRIP VI SCH ×4 (06:26→21:24)
[2019-11-02] MEDS: InsuLIN REG 1unit/0.01ml Soln (100units/ml) SC SCH ×4 (06:35→21:33)
--- NOTE | 2019-11-02 07:20 | NUR ---
Closing Note Patient lying in bed, awake and alert. No s/s of distress. Care endorsed to dayshift RN.
[2019-11-02 08:41] VITALS: BP 107/65
[2019-11-02 09:00] VITALS: BP 110/71
[2019-11-02] MEDS: FAMOTIDINE 20 MG TAB PO SCH ×2 (09:15→21:24)
[2019-11-02] MEDS: HYDROcodone-ACET 5/325MG TAB PO PRN ×3 (09:15→18:43)
[2019-11-02] MEDS: BUDESONIDE (INHALATION) 0.5 MG/2 ML NEB NEB SCH ×2 (09:50→18:41)
[2019-11-02 13:00] VITALS: BP 121/77
[2019-11-02 17:00] VITALS: BP 115/71
[2019-11-02 22:01] VITALS: BP 118/62
[2019-11-03] MEDS: levoFLOXacin 750MG 150 ML IV SCH (01:56)
[2019-11-03] MEDS: methylPREDNISolone SOD SUCC 40 MG/ML VL IV SCH ×3 (01:57→22:13)
[2019-11-03] MEDS: ALBUTEROL SULF 2.5 MG/0.5ML(0.5%) NEB SOLN NEB SCH ×6 (02:13→22:15)
[2019-11-03] MEDS: IPRATROPIUM BROM 0.5 MG/2.5ML INH SOL NEB SCH ×6 (02:13→22:15)
[2019-11-03 05:00] VITALS: BP 109/63
[2019-11-03] MEDS: ACCU-CHEK COMFORT CURVE STRIP VI SCH ×4 (06:11→22:14)
[2019-11-03] MEDS: InsuLIN REG 1unit/0.01ml Soln (100units/ml) SC SCH ×4 (06:19→22:00)
--- NOTE | 2019-11-03 06:31 | NUR ---
Closing Note Patient lying in bed, eyes closed, respirations even and unlabored, appears asleep. Patient awakens to name and touch. No s/s of distress. Care endorsed to dayshift RN.
--- NOTE | 2019-11-03 07:30 | NUR ---
Opening Shift Note Assumed care of patient, awake and alert. No S/S of distress/SOB or pain. Bed in lowest and locked position with side rails up x2 and call light in reach. Instructed on POC and to call for assist PRN, will continue to monitor for changes Q1hr and PRN.
[2019-11-03 08:48] VITALS: BP 111/68
[2019-11-03] MEDS: FAMOTIDINE 20 MG TAB PO SCH ×2 (10:07→22:13)
[2019-11-03] MEDS: HYDROcodone-ACET 5/325MG TAB PO PRN ×2 (10:10→22:15)
[2019-11-03] MEDS: BUDESONIDE (INHALATION) 0.5 MG/2 ML NEB NEB SCH ×2 (10:32→18:55)
--- NOTE | 2019-11-03 11:10 | NUR ---
PATIENT ITCHING. PATIENT STATED THAT HE HAS ITCHING IN HIS LEFT ARM. LEFT ARM APPEARS TO HAVE REDNESS. DR. SHAIKH RUIZ.
--- NOTE | 2019-11-03 11:30 | NUR ---
SPOKE TO DR. GUZMAN. RN UPDATED DR. GUZMAN ON THE PATIENTS ARM REDNESS AND ITCHING. MD AWARE AND NEW ORDERS RECEIVED, READ BACK AND VERIFIED. SEE EMR FOR ORDERS.
[2019-11-03] MEDS ORDERED: diphenhdrAMINE HCL 25 MG CAP PO PRN (11:45)
[2019-11-03 12:32] VITALS: BP 126/77
--- NOTE | 2019-11-03 15:30 | NUR ---
assessment Patient is a 49 year old male who is alert and oriented. Patients cognitive abilities are intact. Prior to admission patient lived home with family and functioned independently. Patient informed me he is able to care for his own ADLs. Per patient he will return home to his prior living arrangements post discharge and family will transport him home. Patient has no insurance. Patients income is 931.00 per month. Patient has been assessed by Brian Nuno of [facility]. Per Brian patients application is secure. I have provided patient with resources for [facility], Dr. Cooper, and [facility] urgent care for follow up visits. I have provided patient with a prescription card from community assistance program.I informed patient he has a right to speak to a geriatric social worker regarding all care. I informed patient he has a right to participate in any and all discharge planning. Patient does not have a POA and advanced directive. I have offered patient information on POA and advanced directives. I informed the patient the advantages and benefits of having an Advanced Directive. Patient verbalized understanding and agreed to discharge plan. Addendum: 11/03/19 at 1534 by Shirley GOMEZ Amended: Links added.
[2019-11-03 17:20] VITALS: BP 123/76
--- NOTE | 2019-11-03 19:30 | NUR ---
REPORT RECEIVED, ASSUMED CARE.
[2019-11-03 22:05] VITALS: BP 125/76
[2019-11-04] MEDS: levoFLOXacin 750MG 150 ML IV SCH (00:11)
[2019-11-04] MEDS: ALBUTEROL SULF 2.5 MG/0.5ML(0.5%) NEB SOLN NEB SCH ×4 (02:00→14:25)
[2019-11-04] MEDS: IPRATROPIUM BROM 0.5 MG/2.5ML INH SOL NEB SCH ×4 (02:00→14:25)
[2019-11-04 05:30] VITALS: BP 110/69
[2019-11-04] MEDS: ACCU-CHEK COMFORT CURVE STRIP VI SCH ×2 (05:34→12:17)
[2019-11-04] MEDS: InsuLIN REG 1unit/0.01ml Soln (100units/ml) SC SCH ×2 (05:37→11:30)
--- NOTE | 2019-11-04 07:45 | NUR ---
OPENING SHIFT NOTE: PATIENT RESTING IN BED, A/OX4 RESPIRATIONS EVEN AND UNLABORED LUNGS SOUNDS CLEAR UPPER, CRACKLES NOTED TO BILATERAL BASES. UPDATED ON PLAN OF CARE PATIENT VERBALIZED UNDERSTANDING. CALL LIGHT PLACED WITHIN REACH, BED ALARM ON AND IN PLACE WILL CONTINUE TO MONITOR.
[2019-11-04 08:48] VITALS: BP 129/53
[2019-11-04] MEDS: FAMOTIDINE 20 MG TAB PO SCH (10:02)
[2019-11-04] MEDS: methylPREDNISolone SOD SUCC 40 MG/ML VL IV SCH (10:02)
[2019-11-04] MEDS: HYDROcodone-ACET 5/325MG TAB PO PRN (10:04)
[2019-11-04] MEDS: BUDESONIDE (INHALATION) 0.5 MG/2 ML NEB NEB SCH (10:33)
[2019-11-04 12:42] VITALS: BP 127/67
[2019-11-04] MEDS ORDERED: LEVO750T8 PO (13:21)
--- NOTE | 2019-11-04 15:31 | NUR ---
DISCHARGE: PATIENT DISCHARGED, ALL EDUCATION MATERIALS GIVEN. PATIENT VERBALIZED UNDERSTANDING TO FOLLOW UP WITH PRIMARY CARE DOCTOR, AND TO FILL GIVEN PRESCRIPTIONS INCLUDING OUTPATIENT CXR. TELE RETURNED TO CARDIO UNIT. IV REMOVED MANUAL PRESSURE APPLIED. PATIENT AMBULATED OUT TO PRIVATE AUTO WITHOUT INCIDENCE.
== END 2019-11-04 15:42 | disposition home or self-care (01) | DRG 133 ==
LOC: ER 21:20 → OVERFLOW 21:21 → CENTRAL 10-30 03:18 → ICU WEST 10-30 17:58 → TELE-WESTW 10-31 16:40
PROVIDERS: ADMIT Nurse Practitioner; ATTEND Internal Medicine
PROC: 5A09457 Assistance with Respiratory Ventilation, 24-96 Consecutive Hours, Continuous Positive Airway Pressure (ICD-10-PCS; principal; 2019-10-30)
DX: J96.01 Acute respiratory failure with hypoxia (principal); J18.9 Pneumonia, unspecified organism; I11.0 Hypertensive heart disease with heart failure; J44.0 Chronic obstructive pulmonary disease with (acute) lower respiratory infection; J44.1 Chronic obstructive pulmonary disease with (acute) exacerbation; J45.901 Unspecified asthma with (acute) exacerbation; I50.9 Heart failure, unspecified; K21.9 Gastro-esophageal reflux disease without esophagitis; M19.90 Unspecified osteoarthritis, unspecified site; E11.9 Type 2 diabetes mellitus without complications; F17.210 Nicotine dependence, cigarettes, uncomplicated; D72.829 Elevated white blood cell count, unspecified; I25.2 Old myocardial infarction; Z88.2 Allergy status to sulfonamides; Z82.49 Family history of ischemic heart disease and other diseases of the circulatory system; Z79.899 Other long term (current) drug therapy; Z79.4 Long term (current) use of insulin; T38.0X5A Adverse effect of glucocorticoids and synthetic analogues, initial encounter
CPT/HCPCS: 36415; 36600; 71045; 71046; 80048; 80053; 81001; 82805; 82962; 83735; 83880; 84132; 84484; 85025; 85610; 85730; 87081; 93005; 94640; 94644; 96365; 96375; 97163; G0378; J1815; J1956

== ENCOUNTER 2021-04-02 14:40 | Emergency (ER) | payer MEDICAID ==
[~2021-04-02] VITALS: Ht 182.9 cm; Wt 112.5 kg
[~2021-04-02 14:40] MED LIST changes: +ALBU2TAB4 PO; +LEVO750T8 PO
[2021-04-02 14:41] VITALS: BP 147/82
[2021-04-02 16:09] LABS: Basophils # (auto) 0.1 10 ^3/uL (0-0.2); Basophils % (auto) 0.7 % (0.0-2.0); Eosinophils # (auto) 0.3 10 ^3/uL (0-0.8); Eosinophils % (auto) 4.6 % (0.0-7.0); Hematocrit 46.1 % (41.0-53.0); Hemoglobin 15.2 g/dL (13.5-17.5); Lymphocytes # (auto) 1.8 10 ^3/uL (0.4-5.4); Lymphocytes % (auto) 25.2 % (10.0-50.0); Mean Corpuscular Hemoglobin 29.6 pg (28.0-32.0); Mean Corpuscular Volume 89.4 fL (80.0-100.0); Monocytes # (auto) 0.7 10 ^3/uL (0-1.3); Monocytes % (auto) 9.1 % (0.0-12.0); Neutrophils # (auto) 4.4 10 ^3/uL (1.6-8.6); Neutrophils % (auto) 60.4 % (37.0-80.0); Nucleated Red Blood Cells % 0.1 %; Red Blood Cells 5.15 10^6/uL (4.5-5.90); Red Cell Distribution Width 14.2 % (11.8-14.3); White Blood Cell 7.2 10^3/uL (4.4-10.8)
[2021-04-02 16:24] LABS: Alanine Aminotransferase 23 U/L (16-61); Albumin 3.3 g/dL (3.4-5.0); Anion Gap 9 (5-15); Aspartate Aminotransferase 23 U/L (15-37); BUN/Creatinine Ratio 13.5; Blood Urea Nitrogen 12 mg/dL (7-18); Calcium 8.6 mg/dL (8.5-10.1); Carbon Dioxide 24 mmol/L (21-32); Chloride 108 mmol/L (98-107); GFR African American 117 mL/min; GFR Non-African American 97 mL/min; Glucose 147 mg/dL (74-106); Potassium 3.8 mmol/L (3.5-5.1); Sodium 141 mmol/L (136-145)
[2021-04-02 16:28] LABS: Alkaline Phosphatase 81 U/L (45-117); Bilirubin, Total 0.2 mg/dL (0.2-1.0); Total Protein 7.1 g/dL (6.4-8.2)
== END 2021-04-02 21:55 | disposition left against medical advice (07) ==
LOC: ER 14:42
DX: R06.02 Shortness of breath (principal); R05.9 Cough, unspecified; R07.9 Chest pain, unspecified; Z53.21 Procedure and treatment not carried out due to patient leaving prior to being seen by health care provider
CPT/HCPCS: 36415; 71045; 80053; 84484; 85025; 93005

== ENCOUNTER 2021-05-28 00:50 | Inpatient (IN) | payer MEDICAID ==
[~2021-05-28] VITALS: Ht 182.9 cm; Wt 100.0 kg
[2021-05-28] MEDS ORDERED: IPRATROPIUM BROM 0.5 MG/2.5ML INH SOL NEB ONE (01:00)
[2021-05-28] MEDS ORDERED: methylPREDNISolone SOD SUCC 125 MG/2 ML VL IV ONE ×2 (01:00)
[2021-05-28] MEDS ORDERED: ALBUTEROL SULF 2.5 MG/0.5ML(0.5%) NEB SOLN NEB ONE (01:00)
[2021-05-28 01:09] VITALS: BP 120/77
[2021-05-28] MEDS ORDERED: ACETAMINOPHEN 500 MG TAB PO ONE (01:15)
[2021-05-28] MEDS ORDERED: cefTRIAXone 1GM/50ML D5W 50 ML IV ONE (01:15)
[2021-05-28] MEDS ORDERED: AZITHROMYCIN 500MG/ 250ML 250 ML IV ONE (01:15)
[2021-05-28 01:35] LABS: Basophils # (auto) 0.2 10 ^3/uL (0-0.2); Basophils % (auto) 1.5 % (0.0-2.0); Eosinophils # (auto) 0.3 10 ^3/uL (0-0.8); Eosinophils % (auto) 2.3 % (0.0-7.0); Hematocrit 45.3 % (41.0-53.0); Hemoglobin 15.5 g/dL (13.5-17.5); Lymphocytes # (auto) 1.5 10 ^3/uL (0.4-5.4); Lymphocytes % (auto) 13.6 % (10.0-50.0); Mean Corpuscular Hemoglobin 30.2 pg (28.0-32.0); Mean Corpuscular Hgb Conc. 34.3 g/dL (32.0-36.0); Neutrophils # (auto) 8.2 10 ^3/uL (1.6-8.6); Neutrophils % (auto) 73.6 % (37.0-80.0); Nucleated Red Blood Cells % 0.3 %; Red Blood Cells 5.15 10^6/uL (4.5-5.90); Red Cell Distribution Width 14.3 % (11.8-14.3); White Blood Cell 11.1 10^3/uL (4.4-10.8)
[2021-05-28 02:05] LABS: Albumin 3.2 g/dL (3.4-5.0); BUN/Creatinine Ratio 18.3; Calcium 9.1 mg/dL (8.5-10.1); Magnesium 2.4 mg/dL (1.6-2.6)
[2021-05-28 02:07] LABS: Bilirubin, Total 0.6 mg/dL (0.2-1.0); Total Protein 6.8 g/dL (6.4-8.2)
[2021-05-28 02:10] LABS: Potassium 4.4 mmol/L (3.5-5.1)
[2021-05-28 03:22] LABS: INR 0.99 (0.9-1.15); Partial Thromboplastin Time 26.8 sec (23.6-33.0)
[2021-05-28] MEDS ORDERED: ONDANSETRON HCL 4 MG/2 ML VIAL IV PRN (06:00)
[2021-05-28] MEDS ORDERED: ALBUTEROL SULF 2.5 MG/0.5ML(0.5%) NEB SOLN NEB PRN (06:00)
[2021-05-28] MEDS ORDERED: IPRATROPIUM BROM 0.5 MG/2.5ML INH SOL NEB PRN (06:00)
[2021-05-28] MEDS ORDERED: DOCUSATE SOD 100 MG CAP PO PRN (06:00)
[2021-05-28] MEDS ORDERED: ACETAMINOPHEN 325 MG TAB PO PRN (06:00)
[2021-05-28] MEDS ORDERED: DEXTROSE (50%) 50ML SYRG IV PRN (06:00)
[2021-05-28] MEDS ORDERED: MORPHINE SULFATE INJECTION 2 MG/ML SYRG IV PRN (06:30)
[2021-05-28] MEDS ORDERED: NITROGLYCERIN 0.4 MG SL TAB SL PRN (06:30)
[2021-05-28] MEDS: SODIUM CHLOR 0.9% PF (SALINE LOCK) 10ML VIAL/SYR IV SCH ×3 (06:52→20:54)
[2021-05-28] MEDS: methylPREDNISolone SOD SUCC 40 MG/ML VL IV SCH ×3 (06:57→20:53)
[2021-05-28] MEDS: ACCU-CHEK COMFORT CURVE STRIP VI SCH ×4 (07:28→21:12)
[2021-05-28] MEDS: InsuLIN REG 1unit/0.01ml Soln (100units/ml) SC SCH ×4 (07:31→21:11)
[2021-05-28 08:16] LABS: Basophils # (auto) 0 10 ^3/uL (0-0.2); Basophils % (auto) 0.3 % (0.0-2.0); Eosinophils # (auto) 0 10 ^3/uL (0-0.8); Eosinophils % (auto) 0.2 % (0.0-7.0); Hematocrit 43.4 % (41.0-53.0); Hemoglobin 14.6 g/dL (13.5-17.5); Lymphocytes # (auto) 0.5 10 ^3/uL (0.4-5.4); Lymphocytes % (auto) 4.4 % (10.0-50.0); Mean Corpuscular Hemoglobin 29.2 pg (28.0-32.0); Mean Corpuscular Hgb Conc. 33.6 g/dL (32.0-36.0); Mean Corpuscular Volume 87.1 fL (80.0-100.0); Monocytes # (auto) 0.2 10 ^3/uL (0-1.3); Monocytes % (auto) 1.4 % (0.0-12.0); Neutrophils # (auto) 10.3 10 ^3/uL (1.6-8.6); Neutrophils % (auto) 93.7 % (37.0-80.0); Red Blood Cells 4.98 10^6/uL (4.5-5.90); Red Cell Distribution Width 14.3 % (11.8-14.3)
[2021-05-28 08:25] VITALS: BP 112/69
[2021-05-28 08:33] LABS: Albumin 3.2 g/dL (3.4-5.0); Potassium 4.9 mmol/L (3.5-5.1)
[2021-05-28 08:38] LABS: Bilirubin, Total 0.5 mg/dL (0.2-1.0); Total Protein 6.8 g/dL (6.4-8.2)
[2021-05-28 09:09] LABS: BUN/Creatinine Ratio 16.1
[2021-05-28 09:24] VITALS: BP 118/77
[2021-05-28] MEDS: FAMOTIDINE (10MG/ML) 2ML VL IV SCH ×2 (09:30→20:53)
[2021-05-28] MEDS: ASPirin 81 mg TAB PO SCH (09:30)
[2021-05-28] MEDS: ENOXAPARIN SOD 40 MG/0.4 ML SYRINGE SC SCH (09:30)
[2021-05-28] MEDS ORDERED: ALBU108A5 PO (09:39)
[2021-05-28 12:49] VITALS: BP 126/65
[2021-05-28 16:59] VITALS: BP 124/72
[2021-05-28] MEDS: ALBUTEROL SULF 2.5 MG/0.5ML(0.5%) NEB SOLN NEB SCH (18:25)
[2021-05-28] MEDS: IPRATROPIUM BROM 0.5 MG/2.5ML INH SOL NEB SCH (18:25)
[2021-05-28] MEDS: ATORVASTATIN 20 MG TAB PO SCH (20:54)
[2021-05-28] MEDS: HYDROcodone-ACET 5/325MG TAB PO PRN (20:59)
[2021-05-28] MEDS: cefTRIAXone 1GM/50ML D5W 50 ML IV SCH (20:59)
[2021-05-28 22:00] VITALS: BP 147/78
[2021-05-28] MEDS: LORazepam 2MG/ML-1ML VIAL IV PRN (22:49)
[2021-05-29] MEDS ORDERED: ALBUTEROL SULF 2.5 MG/0.5ML(0.5%) NEB SOLN NEB PRN (01:15)
[2021-05-29] MEDS: IPRATROPIUM BROM 0.5 MG/2.5ML INH SOL NEB SCH ×7 (02:00→21:54)
[2021-05-29] MEDS: ALBUTEROL SULF 2.5 MG/0.5ML(0.5%) NEB SOLN NEB SCH ×7 (02:00→21:54)
[2021-05-29] MEDS: methylPREDNISolone SOD SUCC 40 MG/ML VL IV SCH ×3 (05:20→22:29)
[2021-05-29] MEDS: SODIUM CHLOR 0.9% PF (SALINE LOCK) 10ML VIAL/SYR IV SCH ×3 (05:20→22:27)
[2021-05-29 05:24] VITALS: BP 127/81
[2021-05-29] MEDS: ACCU-CHEK COMFORT CURVE STRIP VI SCH ×4 (06:03→22:32)
[2021-05-29] MEDS: InsuLIN REG 1unit/0.01ml Soln (100units/ml) SC SCH ×4 (06:05→22:00)
[2021-05-29] MEDS: HYDROcodone-ACET 5/325MG TAB PO PRN ×3 (06:07→22:33)
[2021-05-29 08:46] VITALS: BP 112/64
[2021-05-29 09:43] LABS: Basophils # (auto) 0 10 ^3/uL (0-0.2); Basophils % (auto) 0.2 % (0.0-2.0); Eosinophils # (auto) 0 10 ^3/uL (0-0.8); Eosinophils % (auto) 0.1 % (0.0-7.0); Hematocrit 40.9 % (41.0-53.0); Lymphocytes # (auto) 0.6 10 ^3/uL (0.4-5.4); Lymphocytes % (auto) 3.3 % (10.0-50.0); Mean Corpuscular Hemoglobin 30.2 pg (28.0-32.0); Mean Corpuscular Hgb Conc. 34.2 g/dL (32.0-36.0); Mean Corpuscular Volume 88.2 fL (80.0-100.0); Neutrophils # (auto) 15.3 10 ^3/uL (1.6-8.6); Neutrophils % (auto) 90.4 % (37.0-80.0); Red Blood Cells 4.63 10^6/uL (4.5-5.90); Red Cell Distribution Width 14.2 % (11.8-14.3); White Blood Cell 16.9 10^3/uL (4.4-10.8)
[2021-05-29 09:58] LABS: Albumin 2.9 g/dL (3.4-5.0); Calcium 8.6 mg/dL (8.5-10.1); Potassium 4.7 mmol/L (3.5-5.1)
[2021-05-29 10:02] LABS: BUN/Creatinine Ratio 23.8; Bilirubin, Total 0.6 mg/dL (0.2-1.0); Total Protein 6.6 g/dL (6.4-8.2)
[2021-05-29] MEDS: ASPirin 81 mg TAB PO SCH (10:04)
[2021-05-29] MEDS: FAMOTIDINE (10MG/ML) 2ML VL IV SCH ×2 (10:04→22:26)
[2021-05-29] MEDS: ENOXAPARIN SOD 40 MG/0.4 ML SYRINGE SC SCH (10:04)
[2021-05-29 12:47] VITALS: BP 113/66
[2021-05-29 16:49] VITALS: BP 112/66
[2021-05-29 22:00] VITALS: BP 125/76
[2021-05-29] MEDS: cefTRIAXone 1GM/50ML D5W 50 ML IV SCH (22:26)
[2021-05-29] MEDS: ATORVASTATIN 20 MG TAB PO SCH (22:31)
[2021-05-30] MEDS: IPRATROPIUM BROM 0.5 MG/2.5ML INH SOL NEB SCH ×6 (01:54→21:43)
[2021-05-30] MEDS: ALBUTEROL SULF 2.5 MG/0.5ML(0.5%) NEB SOLN NEB SCH ×6 (01:54→21:43)
[2021-05-30] MEDS: SODIUM CHLOR 0.9% PF (SALINE LOCK) 10ML VIAL/SYR IV SCH ×3 (06:42→22:13)
[2021-05-30] MEDS: methylPREDNISolone SOD SUCC 40 MG/ML VL IV SCH ×3 (06:43→22:13)
[2021-05-30] MEDS: ACCU-CHEK COMFORT CURVE STRIP VI SCH ×4 (06:43→22:13)
[2021-05-30] MEDS: InsuLIN REG 1unit/0.01ml Soln (100units/ml) SC SCH ×4 (06:51→22:00)
[2021-05-30] MEDS ORDERED: REGADENOSON 0.4 MG/5 ML SYRG IV ONE (08:30)
[2021-05-30 08:45] VITALS: BP 122/58
[2021-05-30 09:42] VITALS: BP 112/91
[2021-05-30] MEDS ORDERED: ALBUTEROL SULF 2.5 MG/0.5ML(0.5%) NEB SOLN ONE (09:53)
[2021-05-30] MEDS: FAMOTIDINE (10MG/ML) 2ML VL IV SCH ×2 (12:04→22:12)
[2021-05-30] MEDS: ASPirin 81 mg TAB PO SCH (12:05)
[2021-05-30] MEDS: ENOXAPARIN SOD 40 MG/0.4 ML SYRINGE SC SCH (12:05)
[2021-05-30 13:00] VITALS: BP 116/54
[2021-05-30 16:44] VITALS: BP 116/54
[2021-05-30 17:00] VITALS: BP 117/67
[2021-05-30] MEDS: cefTRIAXone 1GM/50ML D5W 50 ML IV SCH (21:46)
[2021-05-30 22:00] VITALS: BP 115/65
[2021-05-30] MEDS: ATORVASTATIN 20 MG TAB PO SCH (22:13)
[2021-05-30] MEDS: MORPHINE SULFATE 4 MG/ML SYR/VIAL IV PRN (22:13)
[2021-05-31] VITALS (9 sets, daily range): BP systolic 102–143; BP diastolic 59–77
[2021-05-31] MEDS: IPRATROPIUM BROM 0.5 MG/2.5ML INH SOL NEB SCH ×7 (02:00→23:35)
[2021-05-31] MEDS: ALBUTEROL SULF 2.5 MG/0.5ML(0.5%) NEB SOLN NEB SCH ×7 (02:00→23:35)
[2021-05-31] MEDS: methylPREDNISolone SOD SUCC 40 MG/ML VL IV SCH ×3 (06:30→22:14)
[2021-05-31] MEDS: SODIUM CHLOR 0.9% PF (SALINE LOCK) 10ML VIAL/SYR IV SCH ×3 (06:30→22:13)
[2021-05-31] MEDS: InsuLIN REG 1unit/0.01ml Soln (100units/ml) SC SCH ×4 (07:00→22:17)
[2021-05-31] MEDS: ACCU-CHEK COMFORT CURVE STRIP VI SCH ×4 (07:14→22:14)
[2021-05-31] MEDS: ASPirin 81 mg TAB PO SCH (09:34)
[2021-05-31] MEDS: FAMOTIDINE (10MG/ML) 2ML VL IV SCH ×2 (09:34→22:13)
[2021-05-31] MEDS: ENOXAPARIN SOD 40 MG/0.4 ML SYRINGE SC SCH (10:00)
[2021-05-31] MEDS ORDERED: MIDAZOLAM HCL 2MG/2ML 2ml VIAL (1mg/ml) ONE (15:05)
[2021-05-31] MEDS ORDERED: ANGIOMAX 250 MG VIAL IV ONE (15:05)
[2021-05-31] MEDS ORDERED: fentaNYL CITRATE 100 MCG/2 ML VL ONE (15:05)
[2021-05-31] MEDS ORDERED: SODIUM CHL 0.9% 0 ML ONE (15:06)
[2021-05-31] MEDS ORDERED: LIDOCAINE 2%HCL (LOCAL ANESTH.) INJ 20ML MDV ONE (15:06)
[2021-05-31] MEDS ORDERED: IOHEXOL 350 MG/ML 100ML IJ ONE (15:06)
[2021-05-31] MEDS: HYDROcodone-ACET 5/325MG TAB PO PRN ×2 (17:36→22:15)
[2021-05-31] MEDS: cefTRIAXone 1GM/50ML D5W 50 ML IV SCH (22:13)
[2021-05-31] MEDS: ATORVASTATIN 20 MG TAB PO SCH (22:14)
[2021-06-01] MEDS: IPRATROPIUM BROM 0.5 MG/2.5ML INH SOL NEB SCH ×6 (02:00→21:54)
[2021-06-01] MEDS: ALBUTEROL SULF 2.5 MG/0.5ML(0.5%) NEB SOLN NEB SCH ×6 (02:00→21:54)
[2021-06-01 05:00] VITALS: BP 113/62
[2021-06-01 06:13] LABS: Basophils # (auto) 0 10 ^3/uL (0-0.2); Basophils % (auto) 0.1 % (0.0-2.0); Eosinophils # (auto) 0 10 ^3/uL (0-0.8); Hematocrit 40.5 % (41.0-53.0); Hemoglobin 13.6 g/dL (13.5-17.5); Lymphocytes # (auto) 0.9 10 ^3/uL (0.4-5.4); Lymphocytes % (auto) 9.7 % (10.0-50.0); Mean Corpuscular Hemoglobin 30.2 pg (28.0-32.0); Mean Corpuscular Hgb Conc. 33.6 g/dL (32.0-36.0); Mean Corpuscular Volume 90.1 fL (80.0-100.0); Monocytes # (auto) 0.7 10 ^3/uL (0-1.3); Monocytes % (auto) 6.7 % (0.0-12.0); Neutrophils # (auto) 8.2 10 ^3/uL (1.6-8.6); Neutrophils % (auto) 83.5 % (37.0-80.0); Nucleated Red Blood Cells % 0.1 %; Red Cell Distribution Width 14.2 % (11.8-14.3); White Blood Cell 9.8 10^3/uL (4.4-10.8)
[2021-06-01 06:23] LABS: Calcium 8.5 mg/dL (8.5-10.1)
[2021-06-01] MEDS: ACCU-CHEK COMFORT CURVE STRIP VI SCH ×4 (06:44→22:19)
[2021-06-01] MEDS: InsuLIN REG 1unit/0.01ml Soln (100units/ml) SC SCH ×4 (06:44→22:28)
[2021-06-01] MEDS: methylPREDNISolone SOD SUCC 40 MG/ML VL IV SCH ×3 (06:44→22:19)
[2021-06-01] MEDS: SODIUM CHLOR 0.9% PF (SALINE LOCK) 10ML VIAL/SYR IV SCH ×3 (06:44→22:19)
[2021-06-01 09:00] VITALS: BP 139/61
[2021-06-01] MEDS: SACUBITRIL-VALSARTAN 24mg/26mg TAB PO SCH (09:09)
[2021-06-01] MEDS: ENOXAPARIN SOD 40 MG/0.4 ML SYRINGE SC SCH (09:09)
[2021-06-01] MEDS: FAMOTIDINE (10MG/ML) 2ML VL IV SCH ×2 (09:09→22:18)
[2021-06-01] MEDS: ASPirin 81 mg TAB PO SCH (09:09)
[2021-06-01] MEDS: MORPHINE SULFATE 4 MG/ML SYR/VIAL IV PRN ×2 (09:59→18:00)
[2021-06-01 13:00] VITALS: BP 127/70
[2021-06-01 17:00] VITALS: BP 117/72
[2021-06-01 22:00] VITALS: BP 120/64
[2021-06-01] MEDS: cefTRIAXone 1GM/50ML D5W 50 ML IV SCH (22:18)
[2021-06-01] MEDS: ATORVASTATIN 20 MG TAB PO SCH (22:19)
[2021-06-02] MEDS: ALBUTEROL SULF 2.5 MG/0.5ML(0.5%) NEB SOLN NEB SCH ×6 (02:18→22:15)
[2021-06-02] MEDS: IPRATROPIUM BROM 0.5 MG/2.5ML INH SOL NEB SCH ×6 (02:18→22:16)
[2021-06-02 05:00] VITALS: BP 108/72
[2021-06-02] MEDS: methylPREDNISolone SOD SUCC 40 MG/ML VL IV SCH ×3 (06:00→21:37)
[2021-06-02] MEDS: ACCU-CHEK COMFORT CURVE STRIP VI SCH ×4 (06:42→21:03)
[2021-06-02] MEDS: SODIUM CHLOR 0.9% PF (SALINE LOCK) 10ML VIAL/SYR IV SCH ×3 (06:42→21:37)
[2021-06-02] MEDS: InsuLIN REG 1unit/0.01ml Soln (100units/ml) SC SCH ×4 (06:58→21:03)
[2021-06-02 09:00] VITALS: BP 115/64
[2021-06-02] MEDS: SACUBITRIL-VALSARTAN 24mg/26mg TAB PO SCH (09:58)
[2021-06-02] MEDS: ASPirin 81 mg TAB PO SCH (09:58)
[2021-06-02] MEDS: MORPHINE SULFATE 4 MG/ML SYR/VIAL IV PRN ×2 (09:59→14:16)
[2021-06-02] MEDS: FAMOTIDINE (10MG/ML) 2ML VL IV SCH ×2 (09:59→21:37)
[2021-06-02] MEDS: ENOXAPARIN SOD 40 MG/0.4 ML SYRINGE SC SCH (10:00)
[2021-06-02 13:00] VITALS: BP 119/64
[2021-06-02 17:00] VITALS: BP 122/66
[2021-06-02 21:30] VITALS: BP 120/64
[2021-06-02] MEDS: cefTRIAXone 1GM/50ML D5W 50 ML IV SCH (21:37)
[2021-06-02] MEDS: ATORVASTATIN 20 MG TAB PO SCH (21:37)
[2021-06-02 22:57] VITALS: BP 122/66
[2021-06-02] MEDS: HYDROcodone-ACET 5/325MG TAB PO PRN (23:46)
[2021-06-03] MEDS: IPRATROPIUM BROM 0.5 MG/2.5ML INH SOL NEB SCH ×6 (02:00→23:09)
[2021-06-03] MEDS: ALBUTEROL SULF 2.5 MG/0.5ML(0.5%) NEB SOLN NEB SCH ×6 (02:00→23:09)
[2021-06-03] MEDS: InsuLIN REG 1unit/0.01ml Soln (100units/ml) SC SCH ×4 (05:52→22:31)
[2021-06-03] MEDS: SODIUM CHLOR 0.9% PF (SALINE LOCK) 10ML VIAL/SYR IV SCH ×3 (05:56→21:21)
[2021-06-03] MEDS: methylPREDNISolone SOD SUCC 40 MG/ML VL IV SCH ×3 (05:57→21:21)
[2021-06-03] MEDS: ACCU-CHEK COMFORT CURVE STRIP VI SCH ×4 (05:57→21:22)
[2021-06-03 06:00] VITALS: BP 106/62
[2021-06-03 09:00] VITALS: BP 110/73
[2021-06-03] MEDS: ASPirin 81 mg TAB PO SCH (09:50)
[2021-06-03] MEDS: SACUBITRIL-VALSARTAN 24mg/26mg TAB PO SCH (09:50)
[2021-06-03] MEDS: FAMOTIDINE (10MG/ML) 2ML VL IV SCH ×2 (09:50→21:20)
[2021-06-03] MEDS: MORPHINE SULFATE 4 MG/ML SYR/VIAL IV PRN ×2 (09:50→14:51)
[2021-06-03] MEDS: ENOXAPARIN SOD 40 MG/0.4 ML SYRINGE SC SCH (09:50)
[2021-06-03 13:00] VITALS: BP 102/62
[2021-06-03 17:00] VITALS: BP 99/54
[2021-06-03] MEDS: cefTRIAXone 1GM/50ML D5W 50 ML IV SCH (21:20)
[2021-06-03] MEDS: ATORVASTATIN 20 MG TAB PO SCH (21:21)
[2021-06-03] MEDS: HYDROcodone-ACET 5/325MG TAB PO PRN (21:37)
[2021-06-03 22:10] VITALS: BP 120/69
[2021-06-04] MEDS: ALBUTEROL SULF 2.5 MG/0.5ML(0.5%) NEB SOLN NEB SCH ×6 (02:15→21:59)
[2021-06-04] MEDS: IPRATROPIUM BROM 0.5 MG/2.5ML INH SOL NEB SCH ×6 (02:15→21:59)
[2021-06-04] MEDS: HYDROcodone-ACET 5/325MG TAB PO PRN ×3 (03:38→11:20)
[2021-06-04 05:00] VITALS: BP 117/71
[2021-06-04] MEDS: InsuLIN REG 1unit/0.01ml Soln (100units/ml) SC SCH ×4 (06:37→21:34)
[2021-06-04] MEDS: methylPREDNISolone SOD SUCC 40 MG/ML VL IV SCH ×3 (06:39→21:32)
[2021-06-04] MEDS: SODIUM CHLOR 0.9% PF (SALINE LOCK) 10ML VIAL/SYR IV SCH ×3 (06:39→22:00)
[2021-06-04] MEDS: ACCU-CHEK COMFORT CURVE STRIP VI SCH ×4 (06:39→21:34)
[2021-06-04 07:57] LABS: BUN/Creatinine Ratio 26.5; Calcium 8.3 mg/dL (8.5-10.1); Potassium 4.2 mmol/L (3.5-5.1)
[2021-06-04 08:01] LABS: Hematocrit 43.2 % (41.0-53.0); Mean Corpuscular Hemoglobin 29.1 pg (28.0-32.0); Mean Corpuscular Hgb Conc. 32.4 g/dL (32.0-36.0); Mean Corpuscular Volume 89.8 fL (80.0-100.0); Red Blood Cells 4.81 10^6/uL (4.5-5.90); Red Cell Distribution Width 13.8 % (11.8-14.3)
[2021-06-04 08:03] LABS: Band Neutrophils % (manual) 0; Basophils % (manual) 0 (0.0-2.0); Blast Cells 0; Metamyelocytes % 0; Myelocytes % 0; Promyelocytes % 0; Reactive Lymphocytes 0
[2021-06-04 09:09] VITALS: BP 123/73
[2021-06-04] MEDS: ASPirin 81 mg TAB PO SCH (10:00)
[2021-06-04] MEDS: SACUBITRIL-VALSARTAN 24mg/26mg TAB PO SCH (10:00)
[2021-06-04] MEDS: ENOXAPARIN SOD 40 MG/0.4 ML SYRINGE SC SCH (10:00)
[2021-06-04] MEDS: FAMOTIDINE (10MG/ML) 2ML VL IV SCH ×2 (10:00→21:32)
[2021-06-04 12:45] LABS: Eosinophils % (manual) 1 (0-7); Lymphocytes % (manual) 7 (10.0-50.0); Monocytes % (manual) 6 (0-12)
[2021-06-04 13:01] VITALS: BP 147/72
[2021-06-04 16:59] VITALS: BP 132/70
[2021-06-04 20:00] VITALS: BP 128/72
[2021-06-04] MEDS: cefTRIAXone 1GM/50ML D5W 50 ML IV SCH (21:10)
[2021-06-04] MEDS: ATORVASTATIN 20 MG TAB PO SCH (21:33)
[2021-06-04] MEDS: MORPHINE SULFATE 4 MG/ML SYR/VIAL IV PRN (21:35)
[2021-06-04 22:00] VITALS: BP 128/72
[2021-06-05 00:28] VITALS: BP 128/72
[2021-06-05] MEDS: ALBUTEROL SULF 2.5 MG/0.5ML(0.5%) NEB SOLN NEB SCH ×6 (01:56→21:48)
[2021-06-05] MEDS: IPRATROPIUM BROM 0.5 MG/2.5ML INH SOL NEB SCH ×6 (01:56→21:47)
[2021-06-05 05:00] VITALS: BP 105/58
[2021-06-05] MEDS: SODIUM CHLOR 0.9% PF (SALINE LOCK) 10ML VIAL/SYR IV SCH ×3 (05:48→21:49)
[2021-06-05] MEDS: methylPREDNISolone SOD SUCC 40 MG/ML VL IV SCH ×3 (05:49→21:29)
[2021-06-05] MEDS: MORPHINE SULFATE 4 MG/ML SYR/VIAL IV PRN ×3 (05:50→21:30)
[2021-06-05] MEDS: InsuLIN REG 1unit/0.01ml Soln (100units/ml) SC SCH ×4 (06:26→21:48)
[2021-06-05] MEDS: ACCU-CHEK COMFORT CURVE STRIP VI SCH ×4 (06:33→21:49)
[2021-06-05 09:00] VITALS: BP 112/67
[2021-06-05] MEDS: SACUBITRIL-VALSARTAN 24mg/26mg TAB PO SCH (10:00)
[2021-06-05] MEDS: ENOXAPARIN SOD 40 MG/0.4 ML SYRINGE SC SCH (10:00)
[2021-06-05] MEDS: FAMOTIDINE (10MG/ML) 2ML VL IV SCH ×2 (10:00→21:29)
[2021-06-05] MEDS: ASPirin 81 mg TAB PO SCH (10:00)
[2021-06-05 12:30] VITALS: BP 114/76
[2021-06-05 16:56] VITALS: BP 119/64
[2021-06-05] MEDS: ATORVASTATIN 20 MG TAB PO SCH (21:29)
[2021-06-05] MEDS: cefTRIAXone 1GM/50ML D5W 50 ML IV SCH (21:29)
[2021-06-05 22:00] VITALS: BP 110/69
[2021-06-06] MEDS: IPRATROPIUM BROM 0.5 MG/2.5ML INH SOL NEB SCH ×6 (01:58→22:32)
[2021-06-06] MEDS: ALBUTEROL SULF 2.5 MG/0.5ML(0.5%) NEB SOLN NEB SCH ×6 (01:58→22:32)
[2021-06-06 05:00] VITALS: BP 112/54
[2021-06-06] MEDS: methylPREDNISolone SOD SUCC 40 MG/ML VL IV SCH ×3 (06:21→21:42)
[2021-06-06] MEDS: SODIUM CHLOR 0.9% PF (SALINE LOCK) 10ML VIAL/SYR IV SCH ×3 (06:24→21:41)
[2021-06-06] MEDS: InsuLIN REG 1unit/0.01ml Soln (100units/ml) SC SCH ×4 (06:24→21:54)
[2021-06-06] MEDS: ACCU-CHEK COMFORT CURVE STRIP VI SCH ×4 (06:24→21:42)
[2021-06-06] MEDS: MORPHINE SULFATE 4 MG/ML SYR/VIAL IV PRN ×4 (06:25→21:03)
[2021-06-06 08:57] VITALS: BP 126/71
[2021-06-06] MEDS: SACUBITRIL-VALSARTAN 24mg/26mg TAB PO SCH (09:20)
[2021-06-06] MEDS: ENOXAPARIN SOD 40 MG/0.4 ML SYRINGE SC SCH (09:20)
[2021-06-06] MEDS: HYDROcodone-ACET 5/325MG TAB PO PRN ×2 (09:20→14:52)
[2021-06-06] MEDS: ASPirin 81 mg TAB PO SCH (09:20)
[2021-06-06] MEDS: FAMOTIDINE (10MG/ML) 2ML VL IV SCH ×2 (09:21→21:41)
[2021-06-06 12:15] VITALS: BP 133/71
[2021-06-06 16:49] VITALS: BP 117/68
[2021-06-06] MEDS: ATORVASTATIN 20 MG TAB PO SCH (21:42)
[2021-06-06 22:00] VITALS: BP 125/67
[2021-06-06] MEDS: LORazepam 2MG/ML-1ML VIAL IV PRN (22:55)
[2021-06-07] MEDS: ALBUTEROL SULF 2.5 MG/0.5ML(0.5%) NEB SOLN NEB SCH ×6 (02:00→22:41)
[2021-06-07] MEDS: IPRATROPIUM BROM 0.5 MG/2.5ML INH SOL NEB SCH ×6 (02:00→22:41)
[2021-06-07 05:00] VITALS: BP 123/73
[2021-06-07] MEDS: SODIUM CHLOR 0.9% PF (SALINE LOCK) 10ML VIAL/SYR IV SCH ×3 (06:13→22:07)
[2021-06-07] MEDS: methylPREDNISolone SOD SUCC 40 MG/ML VL IV SCH ×3 (06:14→22:08)
[2021-06-07] MEDS: ACCU-CHEK COMFORT CURVE STRIP VI SCH ×4 (06:40→22:07)
[2021-06-07] MEDS: InsuLIN REG 1unit/0.01ml Soln (100units/ml) SC SCH ×4 (06:42→22:34)
[2021-06-07 07:23] LABS: Basophils # (auto) 0.2 10 ^3/uL (0-0.2); Basophils % (auto) 1.2 % (0.0-2.0); Eosinophils # (auto) 0 10 ^3/uL (0-0.8); Hematocrit 42.8 % (41.0-53.0); Hemoglobin 14.1 g/dL (13.5-17.5); Lymphocytes # (auto) 1.6 10 ^3/uL (0.4-5.4); Mean Corpuscular Hemoglobin 29.3 pg (28.0-32.0); Mean Corpuscular Hgb Conc. 32.9 g/dL (32.0-36.0); Monocytes # (auto) 0.9 10 ^3/uL (0-1.3); Monocytes % (auto) 5.5 % (0.0-12.0); Neutrophils # (auto) 13.1 10 ^3/uL (1.6-8.6); Neutrophils % (auto) 83.3 % (37.0-80.0); Red Blood Cells 4.81 10^6/uL (4.5-5.90); Red Cell Distribution Width 14.6 % (11.8-14.3); White Blood Cell 15.7 10^3/uL (4.4-10.8)
[2021-06-07 08:19] LABS: Potassium 4.5 mmol/L (3.5-5.1)
[2021-06-07 08:25] LABS: BUN/Creatinine Ratio 32.9; Calcium 8.8 mg/dL (8.5-10.1)
[2021-06-07 09:00] VITALS: BP 125/75
[2021-06-07] MEDS: ASPirin 81 mg TAB PO SCH (10:09)
[2021-06-07] MEDS: FAMOTIDINE (10MG/ML) 2ML VL IV SCH ×2 (10:09→22:08)
[2021-06-07] MEDS: ENOXAPARIN SOD 40 MG/0.4 ML SYRINGE SC SCH (10:09)
[2021-06-07] MEDS: SACUBITRIL-VALSARTAN 24mg/26mg TAB PO SCH (10:57)
[2021-06-07 13:00] VITALS: BP 125/68
[2021-06-07 17:00] VITALS: BP 138/80
[2021-06-07 22:00] VITALS: BP 131/69
[2021-06-07] MEDS: ATORVASTATIN 20 MG TAB PO SCH (22:08)
[2021-06-08] MEDS: LORazepam 2MG/ML-1ML VIAL IV PRN (00:02)
[2021-06-08] MEDS: IPRATROPIUM BROM 0.5 MG/2.5ML INH SOL NEB SCH ×3 (01:24→11:36)
[2021-06-08] MEDS: ALBUTEROL SULF 2.5 MG/0.5ML(0.5%) NEB SOLN NEB SCH ×3 (01:24→11:36)
[2021-06-08 05:00] VITALS: BP 106/59
[2021-06-08] MEDS: SODIUM CHLOR 0.9% PF (SALINE LOCK) 10ML VIAL/SYR IV SCH ×2 (06:51→14:50)
[2021-06-08] MEDS: methylPREDNISolone SOD SUCC 40 MG/ML VL IV SCH ×2 (06:51→14:49)
[2021-06-08] MEDS: ACCU-CHEK COMFORT CURVE STRIP VI SCH ×3 (06:51→16:52)
[2021-06-08] MEDS: InsuLIN REG 1unit/0.01ml Soln (100units/ml) SC SCH ×3 (07:07→16:52)
[2021-06-08] MEDS: MORPHINE SULFATE 4 MG/ML SYR/VIAL IV PRN (07:09)
[2021-06-08 08:05] VITALS: BP 106/59
[2021-06-08 09:09] VITALS: BP 129/75
[2021-06-08] MEDS: FAMOTIDINE (10MG/ML) 2ML VL IV SCH (09:58)
[2021-06-08] MEDS: SACUBITRIL-VALSARTAN 24mg/26mg TAB PO SCH (09:59)
[2021-06-08] MEDS: ASPirin 81 mg TAB PO SCH (09:59)
[2021-06-08] MEDS: ENOXAPARIN SOD 40 MG/0.4 ML SYRINGE SC SCH (09:59)
[2021-06-08 12:40] VITALS: BP 149/79
[2021-06-08 16:07] VITALS: BP 131/62
== END 2021-06-08 17:05 | disposition home or self-care (01) | DRG 190 ==
LOC: ER 00:50 → EDBD 00:50 → TELE 06:26 → TELE-WESTW 08:38
PROVIDERS: ADMIT Nurse Practitioner Family; ATTEND Internal Medicine
PROC: 5A09357 Assistance with Respiratory Ventilation, Less than 24 Consecutive Hours, Continuous Positive Airway Pressure (ICD-10-PCS; 2021-05-28)
PROC: 4A023N7 Measurement of Cardiac Sampling and Pressure, Left Heart, Percutaneous Approach (ICD-10-PCS; principal; 2021-05-31)
PROC: B2111ZZ Fluoroscopy of Multiple Coronary Arteries using Low Osmolar Contrast (ICD-10-PCS; 2021-05-31)
PROC: B2151ZZ Fluoroscopy of Left Heart using Low Osmolar Contrast (ICD-10-PCS; 2021-05-31)
PROC: B41C1ZZ Fluoroscopy of Pelvic Arteries using Low Osmolar Contrast (ICD-10-PCS; 2021-05-31)
DX: I21.4 Non-ST elevation (NSTEMI) myocardial infarction (principal); N17.0 Acute kidney failure with tubular necrosis; J96.01 Acute respiratory failure with hypoxia; R65.11 Systemic inflammatory response syndrome (SIRS) of non-infectious origin with acute organ dysfunction; I42.0 Dilated cardiomyopathy; E11.9 Type 2 diabetes mellitus without complications; D72.829 Elevated white blood cell count, unspecified; I11.0 Hypertensive heart disease with heart failure; J44.1 Chronic obstructive pulmonary disease with (acute) exacerbation; I50.22 Chronic systolic (congestive) heart failure; E78.5 Hyperlipidemia, unspecified; K21.9 Gastro-esophageal reflux disease without esophagitis; F17.210 Nicotine dependence, cigarettes, uncomplicated; Z82.49 Family history of ischemic heart disease and other diseases of the circulatory system; M19.90 Unspecified osteoarthritis, unspecified site; Z88.2 Allergy status to sulfonamides; Z20.822 Contact with and (suspected) exposure to COVID-19
CPT/HCPCS: 36415; 36600; 71045; 75736; 78452; 80048; 80053; 80061; 82805; 82962; 83036; 83690; 83735; 83880; 84484; 85007; 85025; 85027; 85610; 85730; 87081; 87426; 93005; 93017; 93306; 93458; 94640; 94660; 96365; 96366; 96368; 96375; 99152; G0378; J0696; J1815; J2250; J3490

== ENCOUNTER 2021-07-10 01:21 | Emergency (ER) | payer MEDICAID ==
[~2021-07-10] VITALS: Ht 182.9 cm; Wt 111.1 kg
[~2021-07-10 01:21] MED LIST changes: +ALBU108A5 PO; -ALBU2TAB4 PO; -ALBUTEROL NEB; -BROMIDE NEB
[2021-07-10 01:34] VITALS: BP 125/99
== END 2021-07-10 06:24 | disposition left against medical advice (07) ==
LOC: ER 01:23
DX: M54.9 Dorsalgia, unspecified (principal); Z53.21 Procedure and treatment not carried out due to patient leaving prior to being seen by health care provider

== ENCOUNTER 2021-08-28 15:16 | Emergency (ER) | payer MEDICAID ==
[~2021-08-28] VITALS: Ht 182.9 cm; Wt 108.9 kg
[2021-08-28] MEDS ORDERED: SODIUM CHLORIDE 0.9% 1,000 ML IV ONE (16:00)
[2021-08-28] MEDS ORDERED: PROMETHAZINE HCL 25 MG/ML 1ML IV PRN (16:00)
[2021-08-28] MEDS ORDERED: HYDROmorphone HCL 2 MG/ML VL IV ONE ×2 (16:00→18:45)
[2021-08-28 16:23] LABS: Basophils # (auto) 0.1 10 ^3/uL (0-0.2); Basophils % (auto) 0.6 % (0.0-2.0); Eosinophils # (auto) 0.1 10 ^3/uL (0-0.8); Eosinophils % (auto) 1.3 % (0.0-7.0); Hematocrit 41.1 % (41.0-53.0); Hemoglobin 14.1 g/dL (13.5-17.5); Lymphocytes # (auto) 1.4 10 ^3/uL (0.4-5.4); Lymphocytes % (auto) 14.5 % (10.0-50.0); Mean Corpuscular Hemoglobin 29.9 pg (28.0-32.0); Mean Corpuscular Hgb Conc. 34.4 g/dL (32.0-36.0); Mean Corpuscular Volume 87.2 fL (80.0-100.0); Monocytes # (auto) 0.7 10 ^3/uL (0-1.3); Monocytes % (auto) 7.1 % (0.0-12.0); Neutrophils # (auto) 7.2 10 ^3/uL (1.6-8.6); Neutrophils % (auto) 76.5 % (37.0-80.0); Nucleated Red Blood Cells % 0.1 %; Red Blood Cells 4.72 10^6/uL (4.5-5.90); Red Cell Distribution Width 15.1 % (11.8-14.3); White Blood Cell 9.4 10^3/uL (4.4-10.8)
[2021-08-28 16:29] LABS: Partial Thromboplastin Time 26.4 sec (23.6-33.0)
[2021-08-28 16:32] LABS: Albumin 3.4 g/dL (3.4-5.0); BUN/Creatinine Ratio 11.5; Calcium 9.5 mg/dL (8.5-10.1); Magnesium 2.4 mg/dL (1.6-2.6); Potassium 4.2 mmol/L (3.5-5.1)
[2021-08-28 16:35] LABS: Bilirubin, Total 0.2 mg/dL (0.2-1.0); Total Protein 7.3 g/dL (6.4-8.2)
[2021-08-28] MEDS ORDERED: IOHEXOL 300 MG/ML 100ML BOTTLE IJ ONE (17:55)
[2021-08-28 19:09] LABS: Urine Bacteria NONE SEEN /hpf (None Seen); Urine Blood Negative /uL (Negative); Urine Mucus FEW (None Seen); Urine Specific Gravity 1.025 (1.001-1.035); Urine WBC 1 /hpf (0 - 3)
[2021-08-28] MEDS ORDERED: ALBUTEROL SULF 2.5 MG/0.5ML(0.5%) NEB SOLN NEB ONE ×2 (20:15→23:15)
[2021-08-28] MEDS ORDERED: IPRATROPIUM BROM 0.5 MG/2.5ML INH SOL NEB ONE (23:15)
[2021-08-28] MEDS ORDERED: predniSONE 20 MG TAB PO ONE (23:15)
[2021-08-28 23:38] VITALS: BP 105/62
[2021-08-29] MEDS ORDERED: PRED20TA2 PO (00:23)
[2021-08-29] MEDS ORDERED: HYDR-4902 PO (00:23)
[2021-08-29] MEDS ORDERED: AZIT250T9 PO (00:23)
== END 2021-08-29 02:41 | disposition home or self-care (01) ==
LOC: ER 15:16 → EDBD 15:16 → ER 08-29 02:41
DX: S29.9XXA Unspecified injury of thorax, initial encounter (principal); I50.9 Heart failure, unspecified; J44.9 Chronic obstructive pulmonary disease, unspecified; K21.9 Gastro-esophageal reflux disease without esophagitis; E11.9 Type 2 diabetes mellitus without complications; F17.210 Nicotine dependence, cigarettes, uncomplicated; Z79.899 Other long term (current) drug therapy; Z20.822 Contact with and (suspected) exposure to COVID-19; Z88.2 Allergy status to sulfonamides; V43.62XA Car passenger injured in collision with other type car in traffic accident, initial encounter; Y93.89 Activity, other specified; Y92.410 Unspecified street and highway as the place of occurrence of the external cause; Y99.8 Other external cause status
CPT/HCPCS: 36415; 71260; 74177; 80053; 81001; 83690; 83735; 85025; 85610; 85730; 87426; 93005; 94640; 96361; 96374; 96375; 96376; 99285; J1170; J2550; J7512; J7644; Q9967

== ENCOUNTER 2021-10-21 19:39 | Inpatient (IN) | payer MEDICAID ==
[~2021-10-21] VITALS: Ht 182.9 cm; Wt 102.0 kg
[~2021-10-21 19:39] MED LIST changes: +AZIT250T9 PO; +HYDR-4902 PO; +PRED20TA2 PO
[2021-10-21 21:10] LABS: Potassium 3.9 mmol/L (3.5-5.1)
[2021-10-21 21:12] LABS: Basophils # (auto) 0.1 10 ^3/uL (0-0.2); Basophils % (auto) 0.5 % (0.0-2.0); Eosinophils # (auto) 0.2 10 ^3/uL (0-0.8); Eosinophils % (auto) 1.2 % (0.0-7.0); Hematocrit 42.4 % (41.0-53.0); Hemoglobin 14.4 g/dL (13.5-17.5); Lymphocytes % (auto) 12.4 % (10.0-50.0); Mean Corpuscular Hemoglobin 29.1 pg (28.0-32.0); Mean Corpuscular Volume 85.8 fL (80.0-100.0); Monocytes # (auto) 1.2 10 ^3/uL (0-1.3); Monocytes % (auto) 7.4 % (0.0-12.0); Neutrophils # (auto) 12.8 10 ^3/uL (1.6-8.6); Neutrophils % (auto) 78.5 % (37.0-80.0); Nucleated Red Blood Cells % 0.1 %; Red Blood Cells 4.94 10^6/uL (4.5-5.90); White Blood Cell 16.3 10^3/uL (4.4-10.8)
[2021-10-21 21:16] LABS: Albumin 3.9 g/dL (3.4-5.0); BUN/Creatinine Ratio 18.3; Bilirubin, Total 0.4 mg/dL (0.2-1.0); Calcium 8.9 mg/dL (8.5-10.1)
[2021-10-22] MEDS ORDERED: methylPREDNISolone SOD SUCC 125 MG/2 ML VL IV ONE
[2021-10-22] MEDS ORDERED: ACETAMINOPHEN 325 MG TAB PO ONE (01:15)
[2021-10-22] MEDS ORDERED: ALBUTEROL SULF 2.5 MG/0.5ML(0.5%) NEB SOLN NEB ONE ×2 (01:30)
[2021-10-22] MEDS ORDERED: IPRATROPIUM BROM 0.5 MG/2.5ML INH SOL NEB ONE ×2 (01:30)
[2021-10-22] MEDS ORDERED: ACETAMINOPHEN 325 MG TAB PO PRN (03:00)
[2021-10-22] MEDS ORDERED: MORPHINE SULFATE INJECTION 2 MG/ML SYRG IV PRN (03:00)
[2021-10-22] MEDS ORDERED: ONDANSETRON HCL 4 MG/2 ML VIAL IV PRN (03:00)
[2021-10-22] MEDS ORDERED: NITROGLYCERIN 0.4 MG SL TAB SL PRN (03:00)
[2021-10-22] MEDS ORDERED: ALBUTEROL SULF 2.5 MG/0.5ML(0.5%) NEB SOLN NEB PRN (03:00)
[2021-10-22] MEDS ORDERED: IPRATROPIUM BROM 0.5 MG/2.5ML INH SOL NEB PRN (03:00)
[2021-10-22] MEDS: methylPREDNISolone SOD SUCC 125 MG/2 ML VL IV SCH ×3 (05:30→22:50)
[2021-10-22] MEDS: HYDROcodone-ACET 5/325MG TAB PO PRN (05:41)
[2021-10-22 09:00] VITALS: BP 130/69
[2021-10-22] MEDS: ASCORBIC ACID 500 MG TAB PO SCH ×2 (10:12→22:51)
[2021-10-22] MEDS: ZINC SULFATE 220mg CAP or TAB PO SCH (10:12)
[2021-10-22] MEDS: MULTIPLE VITAMIN TAB PO SCH (10:12)
[2021-10-22] MEDS: levoFLOXacin 500MG 100 ML IV SCH (10:13)
[2021-10-22] MEDS: ENOXAPARIN SOD 40 MG/0.4 ML SYRINGE SC SCH (10:13)
[2021-10-22 10:59] VITALS: BP 130/69
[2021-10-22] MEDS: ALBUTEROL SULF 2.5 MG/0.5ML(0.5%) NEB SOLN NEB SCH ×2 (11:42→17:26)
[2021-10-22] MEDS: IPRATROPIUM BROM 0.5 MG/2.5ML INH SOL NEB SCH ×2 (11:43→17:26)
[2021-10-22 13:00] VITALS: BP 125/76
[2021-10-22] MEDS: MORPHINE SULFATE INJECTION 2 MG/ML SYRG IV PRN ×2 (14:37→22:53)
[2021-10-22 16:59] VITALS: BP 145/71
[2021-10-22] MEDS: GABAPENTIN 300 MG CAP PO SCH (22:50)
[2021-10-22 22:51] VITALS: BP 148/81
[2021-10-22] MEDS: MONTELUKAST SODIUM 10 MG TAB PO SCH (22:51)
[2021-10-22] MEDS: TEMAZEPAM 15 MG CAP PO PRN (22:53)
[2021-10-23] MEDS: ALBUTEROL SULF 2.5 MG/0.5ML(0.5%) NEB SOLN NEB SCH ×4 (00:20→18:47)
[2021-10-23] MEDS: IPRATROPIUM BROM 0.5 MG/2.5ML INH SOL NEB SCH ×4 (00:20→18:47)
[2021-10-23 05:00] VITALS: BP 118/72
[2021-10-23] MEDS: methylPREDNISolone SOD SUCC 125 MG/2 ML VL IV SCH ×3 (06:46→21:42)
[2021-10-23 07:31] LABS: Basophils # (auto) 0 10 ^3/uL (0-0.2); Basophils % (auto) 0.1 % (0.0-2.0); Eosinophils # (auto) 0 10 ^3/uL (0-0.8); Hematocrit 39.5 % (41.0-53.0); Hemoglobin 13.4 g/dL (13.5-17.5); Lymphocytes % (auto) 4.9 % (10.0-50.0); Mean Corpuscular Hemoglobin 29.4 pg (28.0-32.0); Mean Corpuscular Volume 86.4 fL (80.0-100.0); Monocytes # (auto) 1.1 10 ^3/uL (0-1.3); Monocytes % (auto) 5.1 % (0.0-12.0); Neutrophils # (auto) 19.1 10 ^3/uL (1.6-8.6); Neutrophils % (auto) 89.9 % (37.0-80.0); Potassium 4.3 mmol/L (3.5-5.1); Red Blood Cells 4.57 10^6/uL (4.5-5.90); Red Cell Distribution Width 15.3 % (11.8-14.3); White Blood Cell 21.2 10^3/uL (4.4-10.8)
[2021-10-23 07:40] LABS: Albumin 3.3 g/dL (3.4-5.0); BUN/Creatinine Ratio 24.5; Bilirubin, Total 0.3 mg/dL (0.2-1.0); Calcium 8.9 mg/dL (8.5-10.1); Total Protein 6.6 g/dL (6.4-8.2)
[2021-10-23 08:47] VITALS: BP 149/78
[2021-10-23] MEDS: levoFLOXacin 500MG 100 ML IV SCH (09:52)
[2021-10-23] MEDS: GABAPENTIN 300 MG CAP PO SCH ×2 (09:52→21:42)
[2021-10-23] MEDS: ENOXAPARIN SOD 40 MG/0.4 ML SYRINGE SC SCH (09:52)
[2021-10-23] MEDS: ZINC SULFATE 220mg CAP or TAB PO SCH (09:53)
[2021-10-23] MEDS: ASCORBIC ACID 500 MG TAB PO SCH ×2 (09:53→21:42)
[2021-10-23] MEDS: MULTIPLE VITAMIN TAB PO SCH (09:53)
[2021-10-23] MEDS: MORPHINE SULFATE INJECTION 2 MG/ML SYRG IV PRN ×3 (09:54→21:45)
[2021-10-23 13:13] VITALS: BP 142/80
[2021-10-23 17:32] VITALS: BP 133/77
[2021-10-23] MEDS: MONTELUKAST SODIUM 10 MG TAB PO SCH (21:42)
[2021-10-23 22:00] VITALS: BP 145/76
[2021-10-23] MEDS: TEMAZEPAM 15 MG CAP PO PRN (22:10)
[2021-10-24] MEDS: IPRATROPIUM BROM 0.5 MG/2.5ML INH SOL NEB SCH ×4 (00:37→18:54)
[2021-10-24] MEDS: ALBUTEROL SULF 2.5 MG/0.5ML(0.5%) NEB SOLN NEB SCH ×4 (00:37→18:54)
[2021-10-24 05:00] VITALS: BP 125/61
[2021-10-24] MEDS: methylPREDNISolone SOD SUCC 125 MG/2 ML VL IV SCH ×3 (06:12→22:15)
[2021-10-24] MEDS: HYDROcodone-ACET 5/325MG TAB PO PRN (06:18)
[2021-10-24 08:53] VITALS: BP 125/67
[2021-10-24] MEDS: levoFLOXacin 500MG 100 ML IV SCH (09:33)
[2021-10-24] MEDS: ZINC SULFATE 220mg CAP or TAB PO SCH (09:34)
[2021-10-24] MEDS: GABAPENTIN 300 MG CAP PO SCH ×2 (09:34→22:16)
[2021-10-24] MEDS: MULTIPLE VITAMIN TAB PO SCH (09:34)
[2021-10-24] MEDS: ASCORBIC ACID 500 MG TAB PO SCH ×2 (09:34→22:16)
[2021-10-24] MEDS: ENOXAPARIN SOD 40 MG/0.4 ML SYRINGE SC SCH (09:34)
[2021-10-24] MEDS ORDERED: PANTOPRAZOLE 40 MG TAB PO SCH (10:00)
[2021-10-24 12:46] VITALS: BP 131/70
[2021-10-24] MEDS: MORPHINE SULFATE 4 MG/ML SYR/VIAL IV PRN ×2 (13:32→22:17)
[2021-10-24 17:00] VITALS: BP 120/67
[2021-10-24 22:00] VITALS: BP 127/83
[2021-10-24] MEDS: MONTELUKAST SODIUM 10 MG TAB PO SCH (22:16)
[2021-10-24] MEDS: TEMAZEPAM 15 MG CAP PO PRN (22:16)
[2021-10-25] MEDS: ALBUTEROL SULF 2.5 MG/0.5ML(0.5%) NEB SOLN NEB SCH ×5 (00:05→22:19)
[2021-10-25] MEDS: IPRATROPIUM BROM 0.5 MG/2.5ML INH SOL NEB SCH ×5 (00:05→22:19)
[2021-10-25 05:00] VITALS: BP 135/81
[2021-10-25 06:18] LABS: Basophils # (auto) 0 10 ^3/uL (0-0.2); Basophils % (auto) 0.1 % (0.0-2.0); Eosinophils # (auto) 0 10 ^3/uL (0-0.8); Hematocrit 39.4 % (41.0-53.0); Hemoglobin 13.5 g/dL (13.5-17.5); Lymphocytes % (auto) 6.4 % (10.0-50.0); Mean Corpuscular Hemoglobin 29.4 pg (28.0-32.0); Mean Corpuscular Hgb Conc. 34.1 g/dL (32.0-36.0); Mean Corpuscular Volume 86.2 fL (80.0-100.0); Monocytes # (auto) 0.9 10 ^3/uL (0-1.3); Monocytes % (auto) 5.4 % (0.0-12.0); Neutrophils # (auto) 14.1 10 ^3/uL (1.6-8.6); Neutrophils % (auto) 88.1 % (37.0-80.0); Red Blood Cells 4.57 10^6/uL (4.5-5.90); Red Cell Distribution Width 15.1 % (11.8-14.3); White Blood Cell 16.1 10^3/uL (4.4-10.8)
[2021-10-25 06:32] LABS: Albumin 2.9 g/dL (3.4-5.0); BUN/Creatinine Ratio 24.7; Calcium 8.9 mg/dL (8.5-10.1); Potassium 4.2 mmol/L (3.5-5.1)
[2021-10-25 06:35] LABS: Bilirubin, Total 0.1 mg/dL (0.2-1.0); Total Protein 6.4 g/dL (6.4-8.2)
[2021-10-25] MEDS: methylPREDNISolone SOD SUCC 125 MG/2 ML VL IV SCH ×3 (06:55→22:12)
[2021-10-25] MEDS: MORPHINE SULFATE 4 MG/ML SYR/VIAL IV PRN ×2 (06:56→22:14)
[2021-10-25 07:53] VITALS: BP 135/81
[2021-10-25 09:00] VITALS: BP 137/90
[2021-10-25] MEDS: levoFLOXacin 500MG 100 ML IV SCH (09:13)
[2021-10-25] MEDS: ZINC SULFATE 220mg CAP or TAB PO SCH (09:13)
[2021-10-25] MEDS: GABAPENTIN 300 MG CAP PO SCH ×2 (09:14→22:13)
[2021-10-25] MEDS: ASCORBIC ACID 500 MG TAB PO SCH ×2 (09:14→22:13)
[2021-10-25] MEDS: ENOXAPARIN SOD 40 MG/0.4 ML SYRINGE SC SCH (09:14)
[2021-10-25] MEDS: MULTIPLE VITAMIN TAB PO SCH (09:14)
[2021-10-25] MEDS ORDERED: METH4PAK PO (11:21)
[2021-10-25] MEDS ORDERED: GABA300C10 PO (11:21)
[2021-10-25] MEDS ORDERED: MONT10TA23 PO (11:21)
[2021-10-25] MEDS ORDERED: ALB5IS NEB (11:21)
[2021-10-25] MEDS ORDERED: DOXY-346 PO (11:21)
[2021-10-25] MEDS ORDERED: IPR002IS NEB (11:21)
[2021-10-25 13:00] VITALS: BP 143/94
[2021-10-25] MEDS: PIPERACILLIN-TAZOB 3.375GM 100 ML IV SCH ×2 (14:53→22:13)
[2021-10-25 17:09] VITALS: BP 129/79
[2021-10-25] MEDS: BUDESONIDE (INHALATION) 0.5 MG/2 ML NEB NEB SCH (18:54)
[2021-10-25 22:00] VITALS: BP 117/66
[2021-10-25] MEDS: MONTELUKAST SODIUM 10 MG TAB PO SCH (22:13)
[2021-10-25] MEDS: TEMAZEPAM 15 MG CAP PO PRN (22:15)
[2021-10-26] MEDS: IPRATROPIUM BROM 0.5 MG/2.5ML INH SOL NEB SCH ×6 (02:30→22:05)
[2021-10-26] MEDS: ALBUTEROL SULF 2.5 MG/0.5ML(0.5%) NEB SOLN NEB SCH ×6 (02:30→22:05)
[2021-10-26] MEDS: MORPHINE SULFATE 4 MG/ML SYR/VIAL IV PRN (02:52)
[2021-10-26 05:00] VITALS: BP 116/74
[2021-10-26] MEDS: methylPREDNISolone SOD SUCC 125 MG/2 ML VL IV SCH ×3 (05:49→22:02)
[2021-10-26] MEDS: PIPERACILLIN-TAZOB 3.375GM 100 ML IV SCH ×3 (05:49→22:03)
[2021-10-26] MEDS: HYDROcodone-ACET 5/325MG TAB PO PRN ×2 (05:50→10:19)
[2021-10-26] MEDS: BUDESONIDE (INHALATION) 0.5 MG/2 ML NEB NEB SCH ×2 (06:20→18:00)
[2021-10-26 09:00] VITALS: BP 117/70
[2021-10-26] MEDS: ZINC SULFATE 220mg CAP or TAB PO SCH (10:18)
[2021-10-26] MEDS: GABAPENTIN 300 MG CAP PO SCH ×2 (10:18→22:02)
[2021-10-26] MEDS: levoFLOXacin 500MG 100 ML IV SCH (10:18)
[2021-10-26] MEDS: ASCORBIC ACID 500 MG TAB PO SCH ×2 (10:18→22:02)
[2021-10-26] MEDS: MULTIPLE VITAMIN TAB PO SCH (10:18)
[2021-10-26] MEDS: ENOXAPARIN SOD 40 MG/0.4 ML SYRINGE SC SCH (10:19)
[2021-10-26 13:00] VITALS: BP 126/67
[2021-10-26 17:00] VITALS: BP 125/74
[2021-10-26 22:00] VITALS: BP 128/77
[2021-10-26] MEDS: MONTELUKAST SODIUM 10 MG TAB PO SCH (22:02)
[2021-10-26] MEDS: TEMAZEPAM 15 MG CAP PO PRN (22:03)
[2021-10-27] MEDS: IPRATROPIUM BROM 0.5 MG/2.5ML INH SOL NEB SCH ×6 (02:30→22:42)
[2021-10-27] MEDS: ALBUTEROL SULF 2.5 MG/0.5ML(0.5%) NEB SOLN NEB SCH ×6 (02:30→22:42)
[2021-10-27 05:00] VITALS: BP 125/73
[2021-10-27] MEDS: methylPREDNISolone SOD SUCC 125 MG/2 ML VL IV SCH ×3 (06:02→21:08)
[2021-10-27] MEDS: PIPERACILLIN-TAZOB 3.375GM 100 ML IV SCH ×3 (06:03→21:08)
[2021-10-27] MEDS: MORPHINE SULFATE 4 MG/ML SYR/VIAL IV PRN ×4 (06:13→22:27)
[2021-10-27 06:45] LABS: Hematocrit 43.5 % (41.0-53.0); Hemoglobin 14.7 g/dL (13.5-17.5); Mean Corpuscular Hemoglobin 29.6 pg (28.0-32.0); Mean Corpuscular Hgb Conc. 33.8 g/dL (32.0-36.0); Mean Corpuscular Volume 87.7 fL (80.0-100.0); Red Blood Cells 4.96 10^6/uL (4.5-5.90); Red Cell Distribution Width 14.8 % (11.8-14.3); White Blood Cell 11.6 10^3/uL (4.4-10.8)
[2021-10-27 06:47] LABS: Basophils % (manual) 0 (0.0-2.0); Blast Cells 0; Eosinophils % (manual) 0 (0-7); Myelocytes % 0; Promyelocytes % 0; Reactive Lymphocytes 0
[2021-10-27] MEDS: BUDESONIDE (INHALATION) 0.5 MG/2 ML NEB NEB SCH ×2 (07:10→17:48)
[2021-10-27 08:05] LABS: Band Neutrophils % (manual) 6; Lymphocytes % (manual) 12 (10.0-50.0); Metamyelocytes % 7; Monocytes % (manual) 6 (0-12)
[2021-10-27 09:00] VITALS: BP 139/69
[2021-10-27] MEDS: levoFLOXacin 500MG 100 ML IV SCH (10:27)
[2021-10-27] MEDS: ENOXAPARIN SOD 40 MG/0.4 ML SYRINGE SC SCH (10:28)
[2021-10-27] MEDS: ZINC SULFATE 220mg CAP or TAB PO SCH (10:28)
[2021-10-27] MEDS: MULTIPLE VITAMIN TAB PO SCH (10:28)
[2021-10-27] MEDS: ASCORBIC ACID 500 MG TAB PO SCH ×2 (10:28→21:07)
[2021-10-27] MEDS: GABAPENTIN 300 MG CAP PO SCH ×2 (10:28→21:07)
[2021-10-27 13:00] VITALS: BP 128/83
[2021-10-27 17:00] VITALS: BP 136/86
[2021-10-27] MEDS: MONTELUKAST SODIUM 10 MG TAB PO SCH (21:07)
[2021-10-27 22:00] VITALS: BP 131/80
[2021-10-28] MEDS: TEMAZEPAM 15 MG CAP PO PRN (00:42)
[2021-10-28] MEDS: IPRATROPIUM BROM 0.5 MG/2.5ML INH SOL NEB SCH ×4 (02:00→14:59)
[2021-10-28] MEDS: ALBUTEROL SULF 2.5 MG/0.5ML(0.5%) NEB SOLN NEB SCH ×4 (02:00→14:59)
[2021-10-28 05:00] VITALS: BP 115/89
[2021-10-28] MEDS: methylPREDNISolone SOD SUCC 125 MG/2 ML VL IV SCH ×2 (06:13→13:49)
[2021-10-28] MEDS: PIPERACILLIN-TAZOB 3.375GM 100 ML IV SCH (06:17)
[2021-10-28] MEDS: BUDESONIDE (INHALATION) 0.5 MG/2 ML NEB NEB SCH (07:22)
[2021-10-28 08:55] VITALS: BP 115/89
[2021-10-28 09:00] VITALS: BP 114/72
[2021-10-28] MEDS: MULTIPLE VITAMIN TAB PO SCH (09:28)
[2021-10-28] MEDS: ENOXAPARIN SOD 40 MG/0.4 ML SYRINGE SC SCH (09:28)
[2021-10-28] MEDS: ZINC SULFATE 220mg CAP or TAB PO SCH (09:28)
[2021-10-28] MEDS: GABAPENTIN 300 MG CAP PO SCH (09:28)
[2021-10-28] MEDS: HYDROcodone-ACET 5/325MG TAB PO PRN ×2 (09:29→13:49)
[2021-10-28] MEDS: ASCORBIC ACID 500 MG TAB PO SCH (09:29)
[2021-10-28] MEDS: levoFLOXacin 500MG 100 ML IV SCH (10:55)
[2021-10-28] MEDS ORDERED: TEMA15CA5 PO (13:52)
[2021-10-28 14:48] VITALS: BP 135/72
== END 2021-10-28 15:20 | disposition home or self-care (01) | DRG 139 ==
LOC: ER 19:41 → TELE 10-22 02:50 → TELE-CENTR 10-22 05:00
PROVIDERS: ADMIT Internal Medicine; ATTEND Internal Medicine
DX: J18.9 Pneumonia, unspecified organism (principal); J96.21 Acute and chronic respiratory failure with hypoxia; I50.9 Heart failure, unspecified; J44.0 Chronic obstructive pulmonary disease with (acute) lower respiratory infection; E11.9 Type 2 diabetes mellitus without complications; E66.9 Obesity, unspecified; F17.210 Nicotine dependence, cigarettes, uncomplicated; I25.10 Atherosclerotic heart disease of native coronary artery without angina pectoris; Z20.822 Contact with and (suspected) exposure to COVID-19; J45.901 Unspecified asthma with (acute) exacerbation; Z82.49 Family history of ischemic heart disease and other diseases of the circulatory system; Z82.5 Family history of asthma and other chronic lower respiratory diseases; Z88.2 Allergy status to sulfonamides; Z71.6 Tobacco abuse counseling; Z68.28 Body mass index [BMI] 28.0-28.9, adult
CPT/HCPCS: 36415; 71045; 71250; 80053; 83880; 84484; 85007; 85025; 85027; 93005; 94640; 96374; G0378; J1956; J2543

== ENCOUNTER 2022-02-02 11:54 | Emergency (ER) | payer MEDICAID ==
[~2022-02-02] VITALS: Ht 182.9 cm; Wt 109.0 kg
[~2022-02-02 11:54] MED LIST changes: +ALB5IS NEB; -AZIT250T9 PO; +DOXY-346 PO; +GABA300C10 PO; +IPR002IS NEB; -LEVO750T8 PO; +METH4PAK PO; +MONT10TA23 PO; -PRED20TA2 PO; +TEMA15CA5 PO
[2022-02-02 12:07] VITALS: BP 116/68
[2022-02-02] MEDS ORDERED: ONDANSETRON HCL 4 MG/2 ML VIAL IM ONE (12:15)
[2022-02-02] MEDS ORDERED: HYDROmorphone HCL 2 MG/ML VL/or syr IM ONE (12:15)
== END 2022-02-02 20:14 | disposition home or self-care (01) ==
LOC: ER 11:54 → EDBD 11:54 → ER 20:14
DX: S33.5XXA Sprain of ligaments of lumbar spine, initial encounter (principal); M79.10 Myalgia, unspecified site; G89.4 Chronic pain syndrome; I50.9 Heart failure, unspecified; J44.9 Chronic obstructive pulmonary disease, unspecified; E11.9 Type 2 diabetes mellitus without complications; K21.9 Gastro-esophageal reflux disease without esophagitis; F17.210 Nicotine dependence, cigarettes, uncomplicated; Z79.899 Other long term (current) drug therapy; Z88.2 Allergy status to sulfonamides; X58.XXXA Exposure to other specified factors, initial encounter; Y93.89 Activity, other specified; Y92.89 Other specified places as the place of occurrence of the external cause; Y99.8 Other external cause status
CPT/HCPCS: 72100

== ENCOUNTER 2022-03-02 18:55 | Inpatient (IN) | payer MEDICAID ==
[~2022-03-02] VITALS: Ht 182.9 cm; Wt 109.4 kg
[2022-03-02] MEDS ORDERED: ALBUTEROL SULF 2.5 MG/0.5ML(0.5%) NEB SOLN NEB ONE ×3 (19:00→19:30)
[2022-03-02] MEDS ORDERED: IPRATROPIUM BROM 0.5 MG/2.5ML INH SOL NEB ONE ×3 (19:00→19:30)
[2022-03-02] MEDS ORDERED: MAGNESIUM SULFATE 1GM/100ML 100 ML IV STA (19:16)
[2022-03-02] MEDS ORDERED: methylPREDNISolone SOD SUCC 125 MG/2 ML VL IV ONE (19:30)
[2022-03-02] MEDS ORDERED: MORPHINE SULFATE INJ 2 MG/ml SYRG IV ONE (20:00)
[2022-03-02 20:22] LABS: Basophils # (auto) 0.1 10 ^3/uL (0-0.2); Basophils % (auto) 0.6 % (0.0-2.0); Eosinophils # (auto) 0.2 10 ^3/uL (0-0.8); Eosinophils % (auto) 1.8 % (0.0-7.0); Hematocrit 42.9 % (41.0-53.0); Hemoglobin 14.3 g/dL (13.5-17.5); Lymphocytes # (auto) 1.9 10 ^3/uL (0.4-5.4); Lymphocytes % (auto) 21.5 % (10.0-50.0); Mean Corpuscular Hemoglobin 28.7 pg (28.0-32.0); Mean Corpuscular Hgb Conc. 33.3 g/dL (32.0-36.0); Mean Corpuscular Volume 86.2 fL (80.0-100.0); Monocytes # (auto) 1.1 10 ^3/uL (0-1.3); Monocytes % (auto) 12.3 % (0.0-12.0); Neutrophils # (auto) 5.8 10 ^3/uL (1.6-8.6); Neutrophils % (auto) 63.8 % (37.0-80.0); Nucleated Red Blood Cells % 0.1 %; Red Blood Cells 4.98 10^6/uL (4.5-5.90); Red Cell Distribution Width 14.2 % (11.8-14.3)
[2022-03-02 20:40] LABS: Albumin 3.8 g/dL (3.4-5.0); Calcium 9.1 mg/dL (8.5-10.1); Magnesium 2.3 mg/dL (1.6-2.6); Potassium 4.1 mmol/L (3.5-5.1)
[2022-03-02 20:42] LABS: BUN/Creatinine Ratio 16.3
[2022-03-02 20:45] LABS: Bilirubin, Total 0.3 mg/dL (0.2-1.0)
[2022-03-02 22:02] VITALS: BP 126/81
[2022-03-02 23:37] LABS: Urine Bacteria NONE SEEN /hpf (None Seen); Urine Blood Negative /uL (Negative); Urine WBC 4 /hpf (0 - 3)
[2022-03-03] MEDS ORDERED: ALBUTEROL SULF 2.5 MG/0.5ML(0.5%) NEB SOLN NEB ONE ×2 (03:30→04:00)
[2022-03-03] MEDS ORDERED: IPRATROPIUM BROM 0.5 MG/2.5ML INH SOL NEB ONE ×2 (03:45→04:00)
[2022-03-03] MEDS ORDERED: IPRATROPIUM BROM 0.5 MG/2.5ML INH SOL ONE (04:03)
[2022-03-03] MEDS ORDERED: ALBUTEROL SULF 2.5 MG/0.5ML(0.5%) NEB SOLN ONE (04:03)
[2022-03-03] MEDS ORDERED: NITROGLYCERIN 0.4 MG SL TAB SL PRN (08:30)
[2022-03-03] MEDS ORDERED: MORPHINE SULFATE INJ 2 MG/ml SYRG IV PRN ×2 (08:30)
[2022-03-03] MEDS ORDERED: ONDANSETRON HCL 4 MG/2 ML VIAL IV PRN (08:30)
[2022-03-03] MEDS: AZITHROMYCIN 500MG/ 250ML 250 ML IV SCH (09:24)
[2022-03-03] MEDS: methylPREDNISolone SOD SUCC 125 MG/2 ML VL IV SCH ×3 (09:47→21:44)
[2022-03-03] MEDS: MORPHINE SULFATE INJ 2 MG/ml SYRG IV PRN ×2 (09:48→14:06)
[2022-03-03] MEDS ORDERED: NALO1TAB4 PO (12:50)
[2022-03-03] MEDS ORDERED: HYDR-4072 PO (12:51)
[2022-03-03 13:00] VITALS: BP 124/71
[2022-03-03] MEDS ORDERED: methylPREDNISolone SOD SUCC 125 MG/2 ML VL IV SCH (14:00)
[2022-03-03 17:00] VITALS: BP 97/58
[2022-03-03] MEDS ORDERED: HYDROcodone-ACET 5/325MG TAB PO PRN (21:45)
[2022-03-03 22:00] VITALS: BP 126/68
[2022-03-03] MEDS: ALBUTEROL SULF 2.5 MG/0.5ML(0.5%) NEB SOLN NEB SCH (22:00)
[2022-03-03] MEDS: IPRATROPIUM BROM 0.5 MG/2.5ML INH SOL NEB SCH (22:00)
[2022-03-04] MEDS: IPRATROPIUM BROM 0.5 MG/2.5ML INH SOL NEB SCH ×6 (02:09→21:50)
[2022-03-04] MEDS: ALBUTEROL SULF 2.5 MG/0.5ML(0.5%) NEB SOLN NEB SCH ×5 (02:09→18:55)
[2022-03-04 05:00] VITALS: BP 105/60
[2022-03-04] MEDS: methylPREDNISolone SOD SUCC 125 MG/2 ML VL IV SCH ×3 (06:18→22:44)
[2022-03-04] MEDS: AZITHROMYCIN 500MG/ 250ML 250 ML IV SCH (08:50)
[2022-03-04 09:00] VITALS: BP 103/55
[2022-03-04 12:32] VITALS: BP 112/57
[2022-03-04 17:00] VITALS: BP 111/59
[2022-03-04] MEDS ORDERED: HYDROcodone-ACET 10/325MG TAB PO PRN ×2 (17:00→18:30)
[2022-03-04] MEDS: MORPHINE SULFATE INJ 2 MG/ml SYRG IV PRN (18:25)
[2022-03-04] MEDS ORDERED: HYDROcodone-ACET 5/325MG TAB PO PRN ×2 (18:30)
[2022-03-04 22:00] VITALS: BP 112/66
[2022-03-05] MEDS: ALBUTEROL SULF 2.5 MG/0.5ML(0.5%) NEB SOLN NEB SCH ×5 (02:27→18:51)
[2022-03-05] MEDS: IPRATROPIUM BROM 0.5 MG/2.5ML INH SOL NEB SCH ×6 (02:27→21:55)
[2022-03-05 04:24] VITALS: BP 113/70
[2022-03-05] MEDS: methylPREDNISolone SOD SUCC 125 MG/2 ML VL IV SCH ×3 (06:16→21:57)
[2022-03-05] MEDS: MORPHINE SULFATE INJ 2 MG/ml SYRG IV PRN ×4 (06:20→21:59)
[2022-03-05] MEDS: AZITHROMYCIN 500MG/ 250ML 250 ML IV SCH (08:10)
[2022-03-05] MEDS: NICOTINE 14 MG/24HR TOPICAL PATCH TD SCH (08:10)
[2022-03-05 08:26] VITALS: BP 118/69
[2022-03-05 12:03] VITALS: BP 115/65
[2022-03-05 17:03] VITALS: BP 107/58
[2022-03-05 22:00] VITALS: BP 116/69
[2022-03-06] MEDS: IPRATROPIUM BROM 0.5 MG/2.5ML INH SOL NEB SCH ×6 (02:05→22:54)
[2022-03-06] MEDS: ALBUTEROL SULF 2.5 MG/0.5ML(0.5%) NEB SOLN NEB SCH ×6 (02:05→22:54)
[2022-03-06 05:00] VITALS: BP 108/68
[2022-03-06] MEDS: methylPREDNISolone SOD SUCC 125 MG/2 ML VL IV SCH ×3 (05:49→21:20)
[2022-03-06] MEDS: MORPHINE SULFATE INJ 2 MG/ml SYRG IV PRN ×3 (05:58→20:32)
[2022-03-06] MEDS: AZITHROMYCIN 500MG/ 250ML 250 ML IV SCH (08:19)
[2022-03-06] MEDS: NICOTINE 14 MG/24HR TOPICAL PATCH TD SCH (08:19)
[2022-03-06 08:57] VITALS: BP 114/68
[2022-03-06 12:56] VITALS: BP 125/68
[2022-03-06 17:00] VITALS: BP 141/69
[2022-03-06 22:00] VITALS: BP 120/68
[2022-03-07] MEDS: IPRATROPIUM BROM 0.5 MG/2.5ML INH SOL NEB SCH ×4 (02:44→13:26)
[2022-03-07] MEDS: ALBUTEROL SULF 2.5 MG/0.5ML(0.5%) NEB SOLN NEB SCH ×3 (02:44→13:26)
[2022-03-07 05:00] VITALS: BP 119/66
[2022-03-07] MEDS: methylPREDNISolone SOD SUCC 125 MG/2 ML VL IV SCH (05:57)
[2022-03-07] MEDS: MORPHINE SULFATE INJ 2 MG/ml SYRG IV PRN (07:02)
[2022-03-07 09:00] VITALS: BP 126/67
[2022-03-07] MEDS: NICOTINE 14 MG/24HR TOPICAL PATCH TD SCH (09:38)
[2022-03-07] MEDS: AZITHROMYCIN 500MG/ 250ML 250 ML IV SCH (09:38)
[2022-03-07] MEDS ORDERED: METH4PAK PO (09:40)
[2022-03-07] MEDS ORDERED: MONT10TA23 PO (09:40)
[2022-03-07] MEDS ORDERED: DOXY-346 PO (09:40)
[2022-03-07 13:00] VITALS: BP 117/65
== END 2022-03-07 14:29 | disposition home health service (06) | DRG 140 ==
LOC: ER 18:55 → TELE 03-03 08:28 → TELE-EAST 03-03 11:35
PROVIDERS: ADMIT Internal Medicine; ATTEND Internal Medicine
PROC: 5A09357 Assistance with Respiratory Ventilation, Less than 24 Consecutive Hours, Continuous Positive Airway Pressure (ICD-10-PCS; principal; 2022-03-02)
DX: J44.1 Chronic obstructive pulmonary disease with (acute) exacerbation (principal); J96.01 Acute respiratory failure with hypoxia; E11.9 Type 2 diabetes mellitus without complications; J98.11 Atelectasis; E66.9 Obesity, unspecified; F17.210 Nicotine dependence, cigarettes, uncomplicated; Z20.822 Contact with and (suspected) exposure to COVID-19; K21.9 Gastro-esophageal reflux disease without esophagitis; I50.9 Heart failure, unspecified; Z68.32 Body mass index [BMI] 32.0-32.9, adult; Z79.899 Other long term (current) drug therapy; Z82.49 Family history of ischemic heart disease and other diseases of the circulatory system; Z82.5 Family history of asthma and other chronic lower respiratory diseases; Z71.3 Dietary counseling and surveillance
CPT/HCPCS: 36415; 36600; 71045; 80053; 81001; 82805; 83735; 83880; 84484; 85025; 85379; 87081; 93005; 94640; 94660; 96365; 96375; G0378

== ENCOUNTER 2022-05-22 16:30 | Emergency (ER) | payer MEDICAID ==
[~2022-05-22] VITALS: Ht 182.9 cm; Wt 109.0 kg
[2022-05-22 16:30] VITALS: BP 128/72
[~2022-05-22 16:30] MED LIST changes: -HYDR-4902 PO; +NALO1TAB4 PO; -TEMA15CA5 PO
[2022-05-22] MEDS ORDERED: ALBUTEROL SULF 2.5 MG/0.5ML(0.5%) NEB SOLN NEB ONE (17:15)
[2022-05-22] MEDS ORDERED: IPRATROPIUM BROM 0.5 MG/2.5ML INH SOL NEB ONE (17:15)
[2022-05-22] MEDS ORDERED: ALBUTEROL SULF 2.5 MG/0.5ML(0.5%) NEB SOLN HHN ONE (17:30)
[2022-05-22] MEDS ORDERED: methylPREDNISolone SOD SUCC 125 MG/2 ML VL IM ONE (17:30)
[2022-05-22] MEDS ORDERED: IPRATROPIUM BROM 0.5 MG/2.5ML INH SOL HHN ONE (17:30)
== END 2022-05-24 00:29 | disposition left against medical advice (07) ==
LOC: ER 16:30
DX: J44.1 Chronic obstructive pulmonary disease with (acute) exacerbation (principal); F17.210 Nicotine dependence, cigarettes, uncomplicated; E11.9 Type 2 diabetes mellitus without complications; K21.9 Gastro-esophageal reflux disease without esophagitis; Z20.822 Contact with and (suspected) exposure to COVID-19
CPT/HCPCS: 36415; 87426; 87804; 94640; 94644; 99285; J7644

== ENCOUNTER 2022-06-01 13:24 | Emergency (ER) | payer MEDICAID | END 2022-06-01 16:52 | disposition left against medical advice (07) | LOC: ER 13:24 | DX: J45.909 Unspecified asthma, uncomplicated (principal); Z53.21 Procedure and treatment not carried out due to patient leaving prior to being seen by health care provider ==

== ENCOUNTER 2022-06-01 22:09 | Inpatient (IN) | payer MEDICAID ==
[~2022-06-01] VITALS: Ht 152.4 cm; Wt 111.5 kg
[2022-06-01] MEDS ORDERED: ALBUTEROL SULF 2.5 MG/0.5ML(0.5%) NEB SOLN NEB ONE (22:45)
[2022-06-01] MEDS ORDERED: IPRATROPIUM BROM 0.5 MG/2.5ML INH SOL NEB ONE (22:45)
[2022-06-01] MEDS ORDERED: methylPREDNISolone SOD SUCC 125 MG/2 ML VL IV ONE (22:45)
[2022-06-01 23:27] LABS: Albumin 4.1 g/dL (3.4-5.0); BUN/Creatinine Ratio 17.8; Calcium 9.4 mg/dL (8.5-10.1); Potassium 4.2 mmol/L (3.5-5.1)
[2022-06-01 23:28] LABS: Basophils # (auto) 0.1 10 ^3/uL (0-0.2); Basophils % (auto) 0.7 % (0.0-2.0); Eosinophils # (auto) 0.4 10 ^3/uL (0-0.8); Eosinophils % (auto) 4.8 % (0.0-7.0); Hematocrit 46.1 % (41.0-53.0); Hemoglobin 15.3 g/dL (13.5-17.5); Lymphocytes # (auto) 2.3 10 ^3/uL (0.4-5.4); Lymphocytes % (auto) 27.3 % (10.0-50.0); Mean Corpuscular Hgb Conc. 33.2 g/dL (32.0-36.0); Mean Corpuscular Volume 87.3 fL (80.0-100.0); Monocytes # (auto) 0.8 10 ^3/uL (0-1.3); Monocytes % (auto) 8.9 % (0.0-12.0); Neutrophils # (auto) 4.9 10 ^3/uL (1.6-8.6); Neutrophils % (auto) 58.3 % (37.0-80.0); Nucleated Red Blood Cells % 0.1 %; Red Blood Cells 5.28 10^6/uL (4.5-5.90); Red Cell Distribution Width 14.8 % (11.8-14.3); White Blood Cell 8.5 10^3/uL (4.4-10.8)
[2022-06-01 23:30] LABS: Bilirubin, Total 0.4 mg/dL (0.2-1.0); Total Protein 7.3 g/dL (6.4-8.2)
[2022-06-02] MEDS ORDERED: ALBUTEROL SULF 2.5 MG/0.5ML(0.5%) NEB SOLN ONE (00:59)
[2022-06-02] MEDS ORDERED: IPRATROPIUM BROM 0.5 MG/2.5ML INH SOL ONE (00:59)
[2022-06-02] MEDS ORDERED: ALBUTEROL SULF 2.5 MG/0.5ML(0.5%) NEB SOLN NEB ONE ×2 (01:00→08:30)
[2022-06-02] MEDS ORDERED: IPRATROPIUM BROM 0.5 MG/2.5ML INH SOL NEB ONE (01:00)
[2022-06-02] MEDS ORDERED: OXYCODONE W/ ACETAMINOPHEN 5/325MG TABLET PO ONE (01:45)
[2022-06-02] MEDS ORDERED: TERBUTALINE SULFATE 1 MG/ML 1ML VIAL SC ONE (02:00)
[2022-06-02] MEDS: MAGNESIUM SULFATE 1GM/100ML 100 ML IV SCH ×2 (02:11→05:37)
[2022-06-02 04:09] VITALS: BP 125/74
[2022-06-02 06:25] VITALS: BP 132/79
[2022-06-02] MEDS ORDERED: NITROGLYCERIN 0.4 MG SL TAB SL PRN (09:45)
[2022-06-02] MEDS ORDERED: ONDANSETRON HCL 4 MG/2 ML VIAL IV PRN (09:45)
[2022-06-02] MEDS ORDERED: MORPHINE SULFATE INJ 2 MG/ml SYRG IV PRN (09:45)
[2022-06-02] MEDS ORDERED: DOCUSATE SOD 100 MG CAP PO PRN (09:45)
[2022-06-02 09:52] LABS: Basophils # (auto) 0 10 ^3/uL (0-0.2); Basophils % (auto) 0.4 % (0.0-2.0); Eosinophils # (auto) 0 10 ^3/uL (0-0.8); Hematocrit 45.9 % (41.0-53.0); Lymphocytes # (auto) 0.6 10 ^3/uL (0.4-5.4); Lymphocytes % (auto) 6.5 % (10.0-50.0); Mean Corpuscular Hemoglobin 28.6 pg (28.0-32.0); Mean Corpuscular Hgb Conc. 32.8 g/dL (32.0-36.0); Mean Corpuscular Volume 87.3 fL (80.0-100.0); Monocytes # (auto) 0.1 10 ^3/uL (0-1.3); Monocytes % (auto) 1.4 % (0.0-12.0); Neutrophils # (auto) 8.4 10 ^3/uL (1.6-8.6); Neutrophils % (auto) 91.7 % (37.0-80.0); Red Blood Cells 5.26 10^6/uL (4.5-5.90); Red Cell Distribution Width 14.7 % (11.8-14.3); White Blood Cell 9.1 10^3/uL (4.4-10.8)
[2022-06-02] MEDS: GABAPENTIN 300 MG CAP PO SCH ×2 (10:10→21:34)
[2022-06-02] MEDS: PANTOPRAZOLE 40 MG TAB PO SCH (10:10)
[2022-06-02] MEDS: HYDROcodone-ACET 5/325MG TAB PO PRN ×2 (10:13→21:23)
[2022-06-02 10:14] LABS: Calcium 9.5 mg/dL (8.5-10.1); Potassium 4.6 mmol/L (3.5-5.1)
[2022-06-02 10:16] LABS: BUN/Creatinine Ratio 16.1
[2022-06-02] MEDS: IPRATROPIUM BROM 0.5 MG/2.5ML INH SOL NEB PRN ×3 (12:33→19:02)
[2022-06-02] MEDS: ALBUTEROL SULF 2.5 MG/0.5ML(0.5%) NEB SOLN NEB PRN ×3 (12:33→19:02)
[2022-06-02 14:00] VITALS: BP 141/68
[2022-06-02] MEDS: MONTELUKAST SODIUM 10 MG TAB PO SCH (21:39)
[2022-06-03] VITALS (7 sets, daily range): BP systolic 101–133; BP diastolic 58–72
[2022-06-03] MEDS: IPRATROPIUM BROM 0.5 MG/2.5ML INH SOL NEB PRN ×6 (00:10→22:12)
[2022-06-03] MEDS: ALBUTEROL SULF 2.5 MG/0.5ML(0.5%) NEB SOLN NEB PRN ×6 (00:10→22:11)
[2022-06-03] MEDS: MORPHINE SULFATE INJ 2 MG/ml SYRG IV PRN ×3 (02:44→21:44)
[2022-06-03 06:04] LABS: Basophils # (auto) 0.1 10 ^3/uL (0-0.2); Basophils % (auto) 0.6 % (0.0-2.0); Eosinophils # (auto) 0.1 10 ^3/uL (0-0.8); Eosinophils % (auto) 0.6 % (0.0-7.0); Hematocrit 41.5 % (41.0-53.0); Lymphocytes # (auto) 1.5 10 ^3/uL (0.4-5.4); Lymphocytes % (auto) 13.6 % (10.0-50.0); Mean Corpuscular Hemoglobin 29.3 pg (28.0-32.0); Mean Corpuscular Hgb Conc. 33.6 g/dL (32.0-36.0); Mean Corpuscular Volume 87.2 fL (80.0-100.0); Monocytes % (auto) 8.6 % (0.0-12.0); Neutrophils # (auto) 8.5 10 ^3/uL (1.6-8.6); Neutrophils % (auto) 76.6 % (37.0-80.0); Nucleated Red Blood Cells % 0.1 %; Red Blood Cells 4.76 10^6/uL (4.5-5.90); Red Cell Distribution Width 14.7 % (11.8-14.3); White Blood Cell 11.1 10^3/uL (4.4-10.8)
[2022-06-03 06:18] LABS: Potassium 3.9 mmol/L (3.5-5.1)
[2022-06-03 06:32] LABS: Albumin 3.4 g/dL (3.4-5.0); BUN/Creatinine Ratio 21.4; Bilirubin, Total 0.6 mg/dL (0.2-1.0); Calcium 8.7 mg/dL (8.5-10.1); Total Protein 6.6 g/dL (6.4-8.2)
[2022-06-03] MEDS: methylPREDNISolone SOD SUCC 125 MG/2 ML VL IV SCH ×3 (06:42→21:41)
[2022-06-03] MEDS ORDERED: HYDR-4798 PO (07:53)
[2022-06-03] MEDS: GABAPENTIN 300 MG CAP PO SCH ×2 (09:37→21:41)
[2022-06-03] MEDS: PANTOPRAZOLE 40 MG TAB PO SCH (09:37)
[2022-06-03] MEDS: AZITHROMYCIN 500MG/ 250ML 250 ML IV SCH (09:38)
[2022-06-03] MEDS: HYDROcodone-ACET 5/325MG TAB PO PRN (12:43)
[2022-06-03] MEDS: MONTELUKAST SODIUM 10 MG TAB PO SCH (21:41)
[2022-06-04] MEDS: MORPHINE SULFATE INJ 2 MG/ml SYRG IV PRN ×5 (02:09→21:54)
[2022-06-04] MEDS: IPRATROPIUM BROM 0.5 MG/2.5ML INH SOL NEB PRN ×6 (02:12→22:11)
[2022-06-04] MEDS: ALBUTEROL SULF 2.5 MG/0.5ML(0.5%) NEB SOLN NEB PRN ×3 (02:12→11:04)
[2022-06-04 05:00] VITALS: BP 116/61
[2022-06-04] MEDS: methylPREDNISolone SOD SUCC 125 MG/2 ML VL IV SCH ×3 (06:31→21:53)
[2022-06-04 09:00] VITALS: BP 148/67
[2022-06-04] MEDS: AZITHROMYCIN 500MG/ 250ML 250 ML IV SCH (10:08)
[2022-06-04] MEDS: GABAPENTIN 300 MG CAP PO SCH ×2 (10:09→21:54)
[2022-06-04] MEDS: PANTOPRAZOLE 40 MG TAB PO SCH (10:09)
[2022-06-04 13:00] VITALS: BP 120/70
[2022-06-04] MEDS ORDERED: ALBUTEROL SULF 2.5 MG/0.5ML(0.5%) NEB SOLN NEB SCH (13:45)
[2022-06-04] MEDS: ALBUTEROL SULF 2.5 MG/0.5ML(0.5%) NEB SOLN NEB SCH ×3 (14:11→22:11)
[2022-06-04 17:00] VITALS: BP 112/64
[2022-06-04] MEDS ORDERED: DEXTROSE (50%) 50ML SYRG IV PRN (18:30)
[2022-06-04] MEDS: MONTELUKAST SODIUM 10 MG TAB PO SCH (21:54)
[2022-06-04 22:00] VITALS: BP 132/81
[2022-06-04] MEDS: ACCU-CHEK COMFORT CURVE STRIP VI SCH (22:25)
[2022-06-04] MEDS: InsuLIN REG 1unit/0.01ml Soln (100units/ml) SC SCH (22:30)
[2022-06-05] MEDS: IPRATROPIUM BROM 0.5 MG/2.5ML INH SOL NEB PRN (02:55)
[2022-06-05] MEDS: ALBUTEROL SULF 2.5 MG/0.5ML(0.5%) NEB SOLN NEB SCH ×4 (02:55→14:15)
[2022-06-05] MEDS: MORPHINE SULFATE INJ 2 MG/ml SYRG IV PRN ×3 (03:04→12:45)
[2022-06-05 05:00] VITALS: BP 108/64
[2022-06-05] MEDS: ACCU-CHEK COMFORT CURVE STRIP VI SCH ×3 (06:36→17:00)
[2022-06-05] MEDS: methylPREDNISolone SOD SUCC 125 MG/2 ML VL IV SCH ×2 (06:40→14:00)
[2022-06-05] MEDS: InsuLIN REG 1unit/0.01ml Soln (100units/ml) SC SCH ×3 (06:40→17:00)
[2022-06-05 09:00] VITALS: BP 119/76
[2022-06-05 10:17] VITALS: BP 119/74
[2022-06-05] MEDS: AZITHROMYCIN 500MG/ 250ML 250 ML IV SCH (11:06)
[2022-06-05] MEDS: GABAPENTIN 300 MG CAP PO SCH (11:07)
[2022-06-05] MEDS: PANTOPRAZOLE 40 MG TAB PO SCH (11:07)
[2022-06-05 13:00] VITALS: BP 133/71
[2022-06-05] MEDS ORDERED: DOXY-346 PO (14:38)
[2022-06-05] MEDS ORDERED: ALBUAER3 IN (14:42)
[2022-06-05] MEDS ORDERED: PRED20TA2 PO (14:43)
[2022-06-05 17:00] VITALS: BP 132/74
[2022-06-05 17:41] VITALS: BP 132/74
[2022-06-05] MEDS ORDERED: DOXYCYCLINE 100 MG TAB/CAP PO SCH (22:00)
== END 2022-06-05 18:30 | disposition home or self-care (01) | DRG 140 ==
LOC: EDUNIT# 22:09 → ER 22:09 → EDBD 22:09 → TELE 06-02 09:35 → TELE-CENTR 06-02 23:11
PROVIDERS: ADMIT Internal Medicine; ATTEND Internal Medicine
PROC: 5A09357 Assistance with Respiratory Ventilation, Less than 24 Consecutive Hours, Continuous Positive Airway Pressure (ICD-10-PCS; principal; 2022-06-02)
DX: J44.1 Chronic obstructive pulmonary disease with (acute) exacerbation (principal); I11.0 Hypertensive heart disease with heart failure; I50.9 Heart failure, unspecified; E11.9 Type 2 diabetes mellitus without complications; E66.9 Obesity, unspecified; E78.5 Hyperlipidemia, unspecified; F17.210 Nicotine dependence, cigarettes, uncomplicated; K21.9 Gastro-esophageal reflux disease without esophagitis; Z20.822 Contact with and (suspected) exposure to COVID-19; G47.30 Sleep apnea, unspecified; I25.10 Atherosclerotic heart disease of native coronary artery without angina pectoris; Z82.49 Family history of ischemic heart disease and other diseases of the circulatory system; Z88.2 Allergy status to sulfonamides; Z68.42 Body mass index [BMI] 45.0-49.9, adult
CPT/HCPCS: 36415; 71045; 80048; 80053; 82962; 83880; 84484; 85025; 87426; 93005; 94640; 94644; 94660; 96365; 96366; 96372; 96375; G0378; J1815

== ENCOUNTER 2022-08-20 20:18 | Inpatient (IN) | payer MEDICAID ==
[~2022-08-20] VITALS: Ht 182.9 cm; Wt 118.3 kg
[~2022-08-20 20:18] MED LIST changes: +ALBUAER3 IN; +HYDR-4798 PO; -METH4PAK PO; +PRED20TA2 PO
[2022-08-20] MEDS ORDERED: IPRATROPIUM BROM 0.5 MG/2.5ML INH SOL NEB ONE ×2 (20:30→21:00)
[2022-08-20] MEDS ORDERED: ALBUTEROL SULF 2.5 MG/0.5ML(0.5%) NEB SOLN NEB ONE ×2 (20:30→21:00)
[2022-08-20] MEDS ORDERED: DexAMETHasone SOD PHOS 10MG/1ML VIAL INJ IM ONE (20:30)
[2022-08-20] MEDS ORDERED: ALBUTEROL MEDNEB 2.5 mg/3ml NEB ONE ×2 (20:31→20:54)
[2022-08-20] MEDS ORDERED: DexAMETHasone SOD PHOS 10MG/1ML VIAL INJ IV ONE (20:45)
[2022-08-20 21:42] LABS: Basophils # (auto) 0 10 ^3/uL (0-0.2); Basophils % (auto) 0.3 % (0.0-2.0); Eosinophils # (auto) 0.3 10 ^3/uL (0-0.8); Eosinophils % (auto) 4.1 % (0.0-7.0); Hemoglobin 15.5 g/dL (13.5-17.5); Lymphocytes # (auto) 2.6 10 ^3/uL (0.4-5.4); Mean Corpuscular Hemoglobin 29.6 pg (28.0-32.0); Mean Corpuscular Hgb Conc. 35.2 g/dL (32.0-36.0); Mean Corpuscular Volume 84.3 fL (80.0-100.0); Monocytes # (auto) 0.7 10 ^3/uL (0-1.3); Monocytes % (auto) 8.5 % (0.0-12.0); Neutrophils # (auto) 4.5 10 ^3/uL (1.6-8.6); Neutrophils % (auto) 55.1 % (37.0-80.0); Red Blood Cells 5.23 10^6/uL (4.5-5.90); Red Cell Distribution Width 14.1 % (11.8-14.3); White Blood Cell 8.1 10^3/uL (4.4-10.8)
[2022-08-20 22:00] LABS: Albumin 3.7 g/dL (3.4-5.0); BUN/Creatinine Ratio 16.8; Potassium 4.4 mmol/L (3.5-5.1)
[2022-08-20 22:03] LABS: Bilirubin, Total 0.3 mg/dL (0.2-1.0); Total Protein 6.7 g/dL (6.4-8.2)
[2022-08-21] MEDS ORDERED: ALBUTEROL SULF 2.5 MG/0.5ML(0.5%) NEB SOLN NEB ONE ×2 (00:30)
[2022-08-21] MEDS ORDERED: MAGNESIUM SULFATE 1GM/100ML 100 ML IV ONE (00:30)
[2022-08-21] MEDS ORDERED: AZITHROMYCIN 500MG/ 250ML 250 ML IV ONE (00:30)
[2022-08-21] MEDS ORDERED: ALBUTEROL MEDNEB 2.5 mg/3ml NEB ONE ×7 (00:38→22:08)
[2022-08-21] MEDS ORDERED: MORPHINE SULFATE 4 MG/ML SYR/VIAL IV ONE (01:30)
[2022-08-21] MEDS ORDERED: NITROGLYCERIN 0.4 MG SL TAB SL PRN (01:30)
[2022-08-21] MEDS ORDERED: MORPHINE SULFATE INJ 2 MG/ml SYRG IV PRN (01:30)
[2022-08-21] MEDS ORDERED: ONDANSETRON HCL 4 MG/2 ML VIAL IV ONE (01:30)
[2022-08-21] MEDS ORDERED: HYDROcodone-ACET 5/325MG TAB PO PRN (01:30)
[2022-08-21 01:42] VITALS: BP 132/79
[2022-08-21] MEDS: ALBUTEROL SULF 2.5 MG/0.5ML(0.5%) NEB SOLN NEB SCH ×6 (02:00→22:11)
[2022-08-21 02:35] LABS: Urine Bacteria NONE SEEN /hpf (None Seen); Urine Blood Negative /uL (Negative); Urine Specific Gravity 1.026 (1.001-1.035); Urine WBC <1 /hpf (0 - 3)
[2022-08-21 05:27] LABS: Basophils # (auto) 0 10 ^3/uL (0-0.2); Basophils % (auto) 0.1 % (0.0-2.0); Eosinophils # (auto) 0 10 ^3/uL (0-0.8); Eosinophils % (auto) 0.1 % (0.0-7.0); Hematocrit 43.3 % (41.0-53.0); Lymphocytes # (auto) 0.4 10 ^3/uL (0.4-5.4); Lymphocytes % (auto) 4.4 % (10.0-50.0); Mean Corpuscular Hemoglobin 30.1 pg (28.0-32.0); Mean Corpuscular Hgb Conc. 34.5 g/dL (32.0-36.0); Mean Corpuscular Volume 87.1 fL (80.0-100.0); Monocytes # (auto) 0.1 10 ^3/uL (0-1.3); Neutrophils # (auto) 9.2 10 ^3/uL (1.6-8.6); Neutrophils % (auto) 94.4 % (37.0-80.0); Red Blood Cells 4.98 10^6/uL (4.5-5.90); Red Cell Distribution Width 14.1 % (11.8-14.3); White Blood Cell 9.8 10^3/uL (4.4-10.8)
[2022-08-21 06:04] LABS: Potassium 5.5 mmol/L (3.5-5.1)
[2022-08-21 06:12] LABS: Albumin 3.7 g/dL (3.4-5.0); BUN/Creatinine Ratio 14.4; Bilirubin, Total 0.6 mg/dL (0.2-1.0); Calcium 8.9 mg/dL (8.5-10.1); Total Protein 6.7 g/dL (6.4-8.2)
[2022-08-21] MEDS: MORPHINE SULFATE 4 MG/ML SYR/VIAL IV PRN ×2 (10:15→22:46)
[2022-08-21] MEDS: methylPREDNISolone SOD SUCC 125 MG/2 ML VL IV SCH (10:15)
[2022-08-21] MEDS ORDERED: DEXTROSE (50%) 50ML SYRG IV PRN (12:30)
[2022-08-21] MEDS: SODIUM CHLORIDE 0.9% 1,000 ML IV SCH ×2 (13:46→22:50)
[2022-08-21] MEDS: ACCU-CHEK COMFORT CURVE STRIP VI SCH ×2 (17:00→22:50)
[2022-08-21] MEDS: InsuLIN REG 1unit/0.01ml Soln (100units/ml) SC SCH (18:45)
[2022-08-21] MEDS ORDERED: InsuLIN REG 1unit/0.01ml Soln (100units/ml) SC SCH (22:00)
[2022-08-21 23:59] VITALS: BP 109/59
[2022-08-22] MEDS ORDERED: ALBUTEROL MEDNEB 2.5 mg/3ml NEB ONE ×5 (02:39→17:50)
[2022-08-22] MEDS ORDERED: HYDR-4072 (02:45)
[2022-08-22] MEDS ORDERED: MONT-8 PO (02:46)
[2022-08-22] MEDS: ALBUTEROL SULF 2.5 MG/0.5ML(0.5%) NEB SOLN NEB SCH ×4 (02:49→14:17)
[2022-08-22] MEDS: MORPHINE SULFATE 4 MG/ML SYR/VIAL IV PRN ×2 (04:41→12:18)
[2022-08-22 05:00] VITALS: BP 110/58
[2022-08-22] MEDS: ACCU-CHEK COMFORT CURVE STRIP VI SCH ×2 (06:10→12:18)
[2022-08-22] MEDS: InsuLIN REG 1unit/0.01ml Soln (100units/ml) SC SCH ×2 (06:10→06:12)
[2022-08-22 08:59] LABS: BUN/Creatinine Ratio 25.3; Calcium 8.3 mg/dL (8.5-10.1); Potassium 4.1 mmol/L (3.5-5.1)
[2022-08-22 09:00] VITALS: BP 120/61
[2022-08-22 09:06] LABS: Basophils # (auto) 0.1 10 ^3/uL (0-0.2); Basophils % (auto) 0.4 % (0.0-2.0); Eosinophils # (auto) 0 10 ^3/uL (0-0.8); Eosinophils % (auto) 0.2 % (0.0-7.0); Hematocrit 41.6 % (41.0-53.0); Hemoglobin 14.3 g/dL (13.5-17.5); Lymphocytes % (auto) 14.6 % (10.0-50.0); Mean Corpuscular Hemoglobin 29.5 pg (28.0-32.0); Mean Corpuscular Hgb Conc. 34.3 g/dL (32.0-36.0); Mean Corpuscular Volume 86.1 fL (80.0-100.0); Monocytes # (auto) 1.2 10 ^3/uL (0-1.3); Monocytes % (auto) 9.1 % (0.0-12.0); Neutrophils # (auto) 10.2 10 ^3/uL (1.6-8.6); Neutrophils % (auto) 75.7 % (37.0-80.0); Red Blood Cells 4.83 10^6/uL (4.5-5.90); Red Cell Distribution Width 14.4 % (11.8-14.3); White Blood Cell 13.5 10^3/uL (4.4-10.8)
[2022-08-22] MEDS ORDERED: PANTOPRAZOLE 40 MG/10 ML VIAL INJ IV SCH (10:00)
[2022-08-22] MEDS ORDERED: ENOXAPARIN SOD 40 MG/0.4 ML SYRINGE SC SCH (10:00)
[2022-08-22] MEDS ORDERED: CETI10CA PO (12:08)
[2022-08-22] MEDS ORDERED: PRED20TA2 PO (12:08)
[2022-08-22] MEDS ORDERED: AZITTAB PO (12:08)
[2022-08-22] MEDS: methylPREDNISolone SOD SUCC 125 MG/2 ML VL IV SCH (12:17)
[2022-08-22 12:18] VITALS: BP 144/89
== END 2022-08-22 17:16 | disposition home or self-care (01) | DRG 133 ==
LOC: ER 20:22 → TELE 08-21 00:31 → TELE-EAST 08-21 22:16
PROVIDERS: ADMIT Internal Medicine; ATTEND Internal Medicine
PROC: 5A09357 Assistance with Respiratory Ventilation, Less than 24 Consecutive Hours, Continuous Positive Airway Pressure (ICD-10-PCS; principal; 2022-08-20)
DX: J96.01 Acute respiratory failure with hypoxia (principal); N17.9 Acute kidney failure, unspecified; J45.902 Unspecified asthma with status asthmaticus; I50.9 Heart failure, unspecified; J44.1 Chronic obstructive pulmonary disease with (acute) exacerbation; K21.9 Gastro-esophageal reflux disease without esophagitis; E11.65 Type 2 diabetes mellitus with hyperglycemia; Z20.822 Contact with and (suspected) exposure to COVID-19; F17.210 Nicotine dependence, cigarettes, uncomplicated; Z28.310 Unvaccinated for COVID-19; Z82.49 Family history of ischemic heart disease and other diseases of the circulatory system; Z88.2 Allergy status to sulfonamides
CPT/HCPCS: 36415; 36600; 71045; 80048; 80053; 81001; 82805; 82962; 83880; 84484; 85025; 85379; 87426; 93005; 94640; 94644; 94660; 96365; 96375; 99291; C9113; G0378; J1100; J1815; J2405

== ENCOUNTER 2022-08-29 11:51 | Inpatient (IN) | payer MEDICAID ==
[~2022-08-29] VITALS: Ht 182.9 cm; Wt 118.2 kg
[~2022-08-29 11:51] MED LIST changes: -ALBUAER3 IN; +AZITTAB PO; +CETI10CA PO; -DOXY-346 PO; -IPR002IS NEB; -MONT10TA23 PO
[2022-08-29] MEDS ORDERED: methylPREDNISolone SOD SUCC 125 MG/2 ML VL ONE (11:56)
[2022-08-29] MEDS ORDERED: MAGNESIUM SULFATE 1GM/100ML 100 ML IV ONE ×2 (11:58→12:15)
[2022-08-29] MEDS ORDERED: ALBUTEROL MEDNEB 2.5 mg/3ml NEB ONE ×3 (12:02→21:27)
[2022-08-29] MEDS ORDERED: methylPREDNISolone SOD SUCC 125 MG/2 ML VL IV ONE (12:15)
[2022-08-29] MEDS ORDERED: ALBUTEROL SULF 2.5 MG/0.5ML(0.5%) NEB SOLN NEB ONE (12:15)
[2022-08-29] MEDS ORDERED: AZITHROMYCIN 500MG/ 250ML 250 ML IV ONE (12:15)
[2022-08-29] MEDS ORDERED: cefTRIAXone 1GM/50ML D5W 50 ML IV ONE (12:15)
[2022-08-29 13:26] LABS: Basophils # (auto) 0 10 ^3/uL (0-0.2); Basophils % (auto) 0.5 % (0.0-2.0); Eosinophils # (auto) 0.3 10 ^3/uL (0-0.8); Eosinophils % (auto) 3.4 % (0.0-7.0); Hematocrit 42.6 % (41.0-53.0); Hemoglobin 14.6 g/dL (13.5-17.5); Lymphocytes # (auto) 1.8 10 ^3/uL (0.4-5.4); Lymphocytes % (auto) 22.2 % (10.0-50.0); Mean Corpuscular Hemoglobin 29.4 pg (28.0-32.0); Mean Corpuscular Hgb Conc. 34.2 g/dL (32.0-36.0); Mean Corpuscular Volume 85.9 fL (80.0-100.0); Monocytes # (auto) 0.6 10 ^3/uL (0-1.3); Monocytes % (auto) 7.5 % (0.0-12.0); Neutrophils # (auto) 5.4 10 ^3/uL (1.6-8.6); Neutrophils % (auto) 66.4 % (37.0-80.0); Nucleated Red Blood Cells % 0.1 %; Red Blood Cells 4.96 10^6/uL (4.5-5.90); Red Cell Distribution Width 14.2 % (11.8-14.3); White Blood Cell 8.1 10^3/uL (4.4-10.8)
[2022-08-29 13:41] VITALS: BP 131/83
[2022-08-29 13:47] LABS: Albumin 3.8 g/dL (3.4-5.0); Calcium 8.5 mg/dL (8.5-10.1); Potassium 3.9 mmol/L (3.5-5.1)
[2022-08-29 13:52] LABS: BUN/Creatinine Ratio 14.4; Bilirubin, Total 0.4 mg/dL (0.2-1.0); Total Protein 6.4 g/dL (6.4-8.2)
[2022-08-29] MEDS ORDERED: HYDROcodone-ACET 5/325MG TAB PO PRN (15:00)
[2022-08-29] MEDS ORDERED: NITROGLYCERIN 0.4 MG SL TAB SL PRN (15:00)
[2022-08-29] MEDS ORDERED: MORPHINE SULFATE INJ 2 MG/ml SYRG IV PRN (15:00)
[2022-08-29] MEDS ORDERED: ACETAMINOPHEN 325 MG TAB PO PRN (15:00)
[2022-08-29 15:03] LABS: Urine Bacteria NONE SEEN /hpf (None Seen); Urine Blood Negative /uL (Negative); Urine Specific Gravity 1.026 (1.001-1.035); Urine WBC 1 /hpf (0 - 3)
[2022-08-29] MEDS ORDERED: IPRATROPIUM BROM 0.5 MG/2.5ML INH SOL NEB PRN (15:15)
[2022-08-29] MEDS ORDERED: ALBUTEROL SULF 2.5 MG/0.5ML(0.5%) NEB SOLN NEB PRN (15:15)
[2022-08-29] MEDS ORDERED: PANTOPRAZOLE 40 MG/10 ML VIAL INJ IV ONE (15:30)
[2022-08-29] MEDS: MORPHINE SULFATE INJ 2 MG/ml SYRG IV PRN ×2 (15:34→22:04)
[2022-08-29] MEDS: SODIUM CHLORIDE 0.9% 1,000 ML IV SCH (15:34)
[2022-08-29 16:03] LABS: Cholesterol 198 mg/dL (< 200)
[2022-08-29 16:04] LABS: Alcohol, Urine < 3.0 mg/dL (0-10); Amphetamine Screen, Urine NEGATIVE (NEGATIVE); Barbiturate Scree,Urine NEGATIVE (NEGATIVE); Cannabinoid Screen, Urine NEGATIVE (NEGATIVE); Cocaine Screen, Urine NEGATIVE (NEGATIVE)
[2022-08-29 16:07] LABS: HDL Cholesterol 43 mg/dL (40-59); LDL Cholesterol 119 mg/dL (< 100); Triglycerides 243 mg/dL (< 150)
[2022-08-29 16:16] LABS: Benzodiazephine Screen, Urine NEGATIVE (NEGATIVE); Opiate Scree,Urine NEGATIVE (NEGATIVE); Phencyclidine Screen, Urine NEGATIVE (NEGATIVE)
[2022-08-29] MEDS ORDERED: ALBUTEROL SULF 2.5 MG/0.5ML(0.5%) NEB SOLN NEB SCH (18:00)
[2022-08-29] MEDS ORDERED: IPRATROPIUM BROM 0.5 MG/2.5ML INH SOL NEB SCH (18:00)
[2022-08-29] MEDS ORDERED: IOHEXOL 350 MG/ML 100ML IJ ONE (18:18)
[2022-08-29] MEDS: IPRATROPIUM BROM 0.5 MG/2.5ML INH SOL NEB SCH (22:04)
[2022-08-29] MEDS: ALBUTEROL SULF 2.5 MG/0.5ML(0.5%) NEB SOLN NEB SCH (22:04)
[2022-08-29] MEDS: GABAPENTIN 300 MG CAP PO SCH (22:11)
[2022-08-29] MEDS: methylPREDNISolone SOD SUCC 125 MG/2 ML VL IV SCH (22:11)
[2022-08-30] VITALS (7 sets, daily range): BP systolic 107–125; BP diastolic 58–73
[2022-08-30] MEDS: SODIUM CHLORIDE 0.9% 1,000 ML IV SCH ×4 (01:02→22:35)
[2022-08-30] MEDS ORDERED: ALBUTEROL MEDNEB 2.5 mg/3ml NEB ONE ×6 (01:30→21:54)
[2022-08-30] MEDS: ALBUTEROL SULF 2.5 MG/0.5ML(0.5%) NEB SOLN NEB SCH ×6 (01:53→21:56)
[2022-08-30] MEDS: IPRATROPIUM BROM 0.5 MG/2.5ML INH SOL NEB SCH ×6 (01:54→21:57)
[2022-08-30] MEDS: MORPHINE SULFATE INJ 2 MG/ml SYRG IV PRN ×5 (05:29→20:11)
[2022-08-30] MEDS ORDERED: GABA-339 PO (06:19)
[2022-08-30 06:42] LABS: Potassium 4.6 mmol/L (3.5-5.1)
[2022-08-30 06:49] LABS: Basophils # (auto) 0 10 ^3/uL (0-0.2); Mean Corpuscular Volume 87.8 fL (80.0-100.0); Monocytes # (auto) 0.3 10 ^3/uL (0-1.3); Monocytes % (auto) 2.2 % (0.0-12.0)
[2022-08-30 06:52] LABS: Albumin 3.4 g/dL (3.4-5.0); BUN/Creatinine Ratio 21.1; Basophils % (auto) 0.3 % (0.0-2.0); Bilirubin, Total 0.4 mg/dL (0.2-1.0); Calcium 8.8 mg/dL (8.5-10.1); Eosinophils # (auto) 0.1 10 ^3/uL (0-0.8); Hematocrit 41.3 % (41.0-53.0); Hemoglobin 14.2 g/dL (13.5-17.5); Lymphocytes % (auto) 8.4 % (10.0-50.0); Mean Corpuscular Hemoglobin 30.2 pg (28.0-32.0); Mean Corpuscular Hgb Conc. 34.4 g/dL (32.0-36.0); Neutrophils # (auto) 10.6 10 ^3/uL (1.6-8.6); Neutrophils % (auto) 88.1 % (37.0-80.0); Nucleated Red Blood Cells % 0.1 %; Red Cell Distribution Width 14.3 % (11.8-14.3); Total Protein 6.1 g/dL (6.4-8.2)
[2022-08-30] MEDS ORDERED: PANTOPRAZOLE 40 MG/10 ML VIAL INJ IV SCH (10:00)
[2022-08-30] MEDS: GABAPENTIN 300 MG CAP PO SCH ×2 (10:18→21:11)
[2022-08-30] MEDS: methylPREDNISolone SOD SUCC 125 MG/2 ML VL IV SCH ×2 (10:18→21:11)
[2022-08-30] MEDS: ENOXAPARIN SOD 40 MG/0.4 ML SYRINGE SC SCH (10:18)
[2022-08-31] MEDS ORDERED: ALBUTEROL MEDNEB 2.5 mg/3ml NEB ONE ×4 (01:53→13:28)
[2022-08-31] MEDS: ALBUTEROL SULF 2.5 MG/0.5ML(0.5%) NEB SOLN NEB SCH ×4 (01:54→14:15)
[2022-08-31] MEDS: IPRATROPIUM BROM 0.5 MG/2.5ML INH SOL NEB SCH ×5 (01:54→18:10)
[2022-08-31 05:00] VITALS: BP 113/67
[2022-08-31] MEDS: MORPHINE SULFATE INJ 2 MG/ml SYRG IV PRN ×3 (05:05→19:56)
[2022-08-31 08:43] VITALS: BP 124/61
[2022-08-31] MEDS: methylPREDNISolone SOD SUCC 125 MG/2 ML VL IV SCH ×2 (09:24→21:40)
[2022-08-31] MEDS: GABAPENTIN 300 MG CAP PO SCH ×2 (09:24→21:41)
[2022-08-31] MEDS: ENOXAPARIN SOD 40 MG/0.4 ML SYRINGE SC SCH (09:24)
[2022-08-31] MEDS: SODIUM CHLORIDE 0.9% 1,000 ML IV SCH ×3 (09:29→21:41)
[2022-08-31 12:35] LABS: Hepatitis C Antibody Negative (Negative)
[2022-08-31 12:46] VITALS: BP 113/68
[2022-08-31 16:18] VITALS: BP 120/63
[2022-08-31] MEDS: ALBUTEROL MEDNEB 2.5 mg/3ml NEB NEB SCH (18:11)
[2022-08-31] MEDS: SACUBITRIL-VALSARTAN 24mg/26mg TAB PO SCH (21:40)
[2022-08-31] MEDS: CARVEDILOL 3.125 MG TAB PO SCH (21:41)
[2022-08-31 22:00] VITALS: BP 119/68
[2022-08-31] MEDS ORDERED: DOXYCYCLINE 100 MG TAB/CAP PO SCH (22:00)
[2022-09-01] MEDS: IPRATROPIUM BROM 0.5 MG/2.5ML INH SOL NEB SCH ×4 (00:25→16:27)
[2022-09-01] MEDS: ALBUTEROL MEDNEB 2.5 mg/3ml NEB NEB SCH ×4 (00:26→16:27)
[2022-09-01] MEDS: MORPHINE SULFATE INJ 2 MG/ml SYRG IV PRN ×3 (01:00→12:45)
[2022-09-01 05:00] VITALS: BP 122/69
[2022-09-01] MEDS: SODIUM CHLORIDE 0.9% 1,000 ML IV SCH ×2 (05:32→15:20)
[2022-09-01] MEDS ORDERED: EMPAGLIFLOZIN 10 MG TAB PO SCH (07:00)
[2022-09-01 09:00] VITALS: BP 125/73
[2022-09-01] MEDS ORDERED: cefTRIAXone 1GM/50ML D5W 50 ML IV SCH (09:00)
[2022-09-01] MEDS ORDERED: AZITHROMYCIN 500MG/ 250ML 250 ML IV SCH (10:00)
[2022-09-01] MEDS ORDERED: FUROSEMIDE 20 MG TAB PO SCH (10:00)
[2022-09-01] MEDS: SACUBITRIL-VALSARTAN 24mg/26mg TAB PO SCH (10:04)
[2022-09-01] MEDS: CARVEDILOL 3.125 MG TAB PO SCH (10:04)
[2022-09-01] MEDS: GABAPENTIN 300 MG CAP PO SCH (10:04)
[2022-09-01] MEDS: methylPREDNISolone SOD SUCC 125 MG/2 ML VL IV SCH (10:05)
[2022-09-01] MEDS: ENOXAPARIN SOD 40 MG/0.4 ML SYRINGE SC SCH (10:05)
[2022-09-01] MEDS ORDERED: SACU1TAB PO ×2 (11:21)
[2022-09-01] MEDS ORDERED: EMPA1TAB PO (11:21)
[2022-09-01] MEDS ORDERED: CAR3125T PO ×2 (11:21)
[2022-09-01] MEDS ORDERED: METH4PAK PO (11:21)
[2022-09-01] MEDS ORDERED: AZITTAB PO (11:21)
[2022-09-01 13:00] VITALS: BP 113/68
[2022-09-01 16:03] VITALS: BP 113/68
== END 2022-09-01 16:50 | disposition home or self-care (01) | DRG 140 ==
LOC: EDBD 11:51 → ER 11:51 → TELE 15:06 → TELE-EAST 08-30 04:50
PROVIDERS: ADMIT Registered Nurse; ATTEND Internal Medicine
PROC: 5A09357 Assistance with Respiratory Ventilation, Less than 24 Consecutive Hours, Continuous Positive Airway Pressure (ICD-10-PCS; principal; 2022-08-29)
DX: J44.1 Chronic obstructive pulmonary disease with (acute) exacerbation (principal); J96.21 Acute and chronic respiratory failure with hypoxia; I50.23 Acute on chronic systolic (congestive) heart failure; I27.20 Pulmonary hypertension, unspecified; J45.901 Unspecified asthma with (acute) exacerbation; I42.8 Other cardiomyopathies; E66.01 Morbid (severe) obesity due to excess calories; I11.0 Hypertensive heart disease with heart failure; Z20.822 Contact with and (suspected) exposure to COVID-19; G89.29 Other chronic pain; E78.5 Hyperlipidemia, unspecified; J45.909 Unspecified asthma, uncomplicated; Z68.34 Body mass index [BMI] 34.0-34.9, adult; G47.33 Obstructive sleep apnea (adult) (pediatric); M19.90 Unspecified osteoarthritis, unspecified site; E11.9 Type 2 diabetes mellitus without complications; Z88.2 Allergy status to sulfonamides; Z91.14 Patient's other noncompliance with medication regimen
CPT/HCPCS: 36415; 36600; 71045; 71275; 80053; 80061; 80307; 81001; 82805; 83036; 83605; 83880; 84443; 84484; 85025; 85379; 86803; 87040; 87081; 87340; 87426; 93005; 93306; 93970; 94640; 96365; 96366; 96375; C9113; G0378; J0696

== ENCOUNTER 2022-09-25 03:02 | Inpatient (IN) | payer MEDICAID ==
[~2022-09-25] VITALS: Ht 182.9 cm; Wt 122.0 kg
[~2022-09-25 03:02] MED LIST changes: +CAR3125T PO; +EMPA1TAB PO; +GABA-339 PO; +METH4PAK PO; -PRED20TA2 PO; +SACU1TAB PO
[2022-09-25] MEDS ORDERED: MAGNESIUM SULFATE 1GM/100ML 200 ML IV ONE (03:14)
[2022-09-25] MEDS ORDERED: DexAMETHasone SOD PHOS 10MG/1ML VIAL INJ IV ONE (03:15)
[2022-09-25] MEDS ORDERED: ALBUTEROL SULF 2.5 MG/0.5ML(0.5%) NEB SOLN NEB ONE (03:15)
[2022-09-25] MEDS ORDERED: IPRATROPIUM BROM 0.5 MG/2.5ML INH SOL NEB ONE (03:15)
[2022-09-25] MEDS: MAGNESIUM SULFATE 1GM/100ML 100 ML IV SCH ×2 (03:27→03:28)
[2022-09-25 03:28] LABS: Basophils # (auto) 0.1 10 ^3/uL (0-0.2); Basophils % (auto) 0.8 % (0.0-2.0); Eosinophils # (auto) 0.4 10 ^3/uL (0-0.8); Eosinophils % (auto) 5.4 % (0.0-7.0); Hematocrit 45.4 % (41.0-53.0); Hemoglobin 15.7 g/dL (13.5-17.5); Lymphocytes # (auto) 2.3 10 ^3/uL (0.4-5.4); Lymphocytes % (auto) 32.8 % (10.0-50.0); Mean Corpuscular Hemoglobin 29.8 pg (28.0-32.0); Mean Corpuscular Hgb Conc. 34.5 g/dL (32.0-36.0); Mean Corpuscular Volume 86.2 fL (80.0-100.0); Monocytes # (auto) 0.8 10 ^3/uL (0-1.3); Monocytes % (auto) 11.8 % (0.0-12.0); Neutrophils # (auto) 3.5 10 ^3/uL (1.6-8.6); Neutrophils % (auto) 49.2 % (37.0-80.0); Nucleated Red Blood Cells % 0.2 %; Red Blood Cells 5.27 10^6/uL (4.5-5.90); Red Cell Distribution Width 14.5 % (11.8-14.3); White Blood Cell 7.2 10^3/uL (4.4-10.8)
[2022-09-25] MEDS ORDERED: AZITHROMYCIN 500MG/ 250ML 250 ML IV ONE (03:30)
[2022-09-25 03:44] LABS: INR 0.94 (0.9-1.15); Partial Thromboplastin Time 27.9 sec (24.6-33.4)
[2022-09-25 03:47] LABS: Albumin 3.7 g/dL (3.4-5.0); Calcium 8.9 mg/dL (8.5-10.1); Magnesium 2.4 mg/dL (1.6-2.6); Potassium 4.3 mmol/L (3.5-5.1)
[2022-09-25 03:50] LABS: Bilirubin, Total 0.2 mg/dL (0.2-1.0)
[2022-09-25] MEDS ORDERED: LACTATED RINGER'S 1,000 ML IV ONE (05:30)
[2022-09-25 05:44] LABS: Urine Bacteria NONE SEEN /hpf (None Seen); Urine Blood Negative /uL (Negative); Urine Specific Gravity 1.041 (1.001-1.035); Urine WBC 1 /hpf (0 - 3)
[2022-09-25 05:51] VITALS: BP 111/62
[2022-09-25] MEDS ORDERED: MORPHINE SULFATE 4 MG/ML SYR/VIAL IV ONE (06:00)
[2022-09-25] MEDS ORDERED: ONDANSETRON HCL 4 MG/2 ML VIAL IV ONE (06:00)
[2022-09-25] MEDS: cefTRIAXone 1GM/50ML D5W 50 ML IV ONE ×2 (06:34→06:58)
[2022-09-25] MEDS: ACCU-CHEK COMFORT CURVE STRIP VI SCH ×4 (07:00→22:02)
[2022-09-25] MEDS ORDERED: NITROGLYCERIN 0.4 MG SL TAB SL PRN (07:00)
[2022-09-25] MEDS ORDERED: TEMAZEPAM 15 MG CAP PO PRN (07:00)
[2022-09-25] MEDS ORDERED: ACETAMINOPHEN 325 MG TAB PO PRN (07:00)
[2022-09-25] MEDS ORDERED: ONDANSETRON HCL 4 MG/2 ML VIAL IV PRN (07:00)
[2022-09-25] MEDS ORDERED: MORPHINE SULFATE INJ 2 MG/ml SYRG IV PRN (07:00)
[2022-09-25] MEDS ORDERED: IPRATROPIUM BROM 0.5 MG/2.5ML INH SOL NEB PRN (07:00)
[2022-09-25] MEDS ORDERED: DEXTROSE (50%) 50ML SYRG IV PRN (07:00)
[2022-09-25] MEDS: ALBUTEROL SULF 2.5 MG/0.5ML(0.5%) NEB SOLN NEB PRN ×2 (07:47→10:49)
[2022-09-25] MEDS: InsuLIN REG 1unit/0.01ml Soln (100units/ml) SC SCH ×4 (08:07→22:04)
[2022-09-25] MEDS: cefTRIAXone 1GM/50ML D5W 50 ML IV SCH (09:42)
[2022-09-25] MEDS: CARVEDILOL 3.125 MG TAB PO SCH ×2 (09:43→22:02)
[2022-09-25] MEDS: GABAPENTIN 300 MG CAP PO SCH ×2 (09:44→22:01)
[2022-09-25] MEDS: ENOXAPARIN SOD 40 MG/0.4 ML SYRINGE SC SCH (09:44)
[2022-09-25] MEDS: SACUBITRIL-VALSARTAN 24mg/26mg TAB PO SCH ×2 (09:44→22:02)
[2022-09-25] MEDS ORDERED: methylPREDNISolone SOD SUCC 125 MG/2 ML VL IV SCH (10:00)
[2022-09-25] MEDS: AZITHROMYCIN 500MG/ 250ML 250 ML IV SCH (10:43)
[2022-09-25 12:28] VITALS: BP 123/65
[2022-09-25] MEDS ORDERED: HYDROcodone-ACET 5/325MG TAB ONE (13:19)
[2022-09-25] MEDS: methylPREDNISolone SOD SUCC 40 MG/ML VL IV SCH ×2 (14:30→22:02)
[2022-09-25] MEDS: IPRATROPIUM BROM 0.5 MG/2.5ML INH SOL NEB SCH ×2 (17:57→21:54)
[2022-09-25] MEDS: ALBUTEROL SULF 2.5 MG/0.5ML(0.5%) NEB SOLN NEB SCH ×2 (17:58→21:54)
[2022-09-25] MEDS: MORPHINE SULFATE INJ 2 MG/ml SYRG IV PRN (18:00)
[2022-09-25] MEDS ORDERED: IPRATROPIUM BROM 0.5 MG/2.5ML INH SOL NEB SCH (18:00)
[2022-09-25] MEDS ORDERED: ALBUTEROL SULF 2.5 MG/0.5ML(0.5%) NEB SOLN NEB SCH (18:00)
[2022-09-25] MEDS: HYDROcodone-ACET 5/325MG TAB PO PRN (20:56)
[2022-09-26] MEDS: IPRATROPIUM BROM 0.5 MG/2.5ML INH SOL NEB SCH ×4 (01:44→22:26)
[2022-09-26] MEDS: ALBUTEROL SULF 2.5 MG/0.5ML(0.5%) NEB SOLN NEB SCH ×4 (01:44→22:26)
[2022-09-26] MEDS: MORPHINE SULFATE INJ 2 MG/ml SYRG IV PRN ×4 (01:50→21:07)
[2022-09-26] MEDS: InsuLIN REG 1unit/0.01ml Soln (100units/ml) SC SCH ×4 (06:22→22:02)
[2022-09-26] MEDS: methylPREDNISolone SOD SUCC 40 MG/ML VL IV SCH ×3 (06:23→21:59)
[2022-09-26] MEDS: ACCU-CHEK COMFORT CURVE STRIP VI SCH ×4 (06:23→22:01)
[2022-09-26 06:27] LABS: Basophils # (auto) 0 10 ^3/uL (0-0.2); Basophils % (auto) 0.1 % (0.0-2.0); Eosinophils # (auto) 0 10 ^3/uL (0-0.8); Hematocrit 41.5 % (41.0-53.0); Hemoglobin 14.1 g/dL (13.5-17.5); Lymphocytes # (auto) 1.2 10 ^3/uL (0.4-5.4); Lymphocytes % (auto) 10.2 % (10.0-50.0); Mean Corpuscular Hemoglobin 29.2 pg (28.0-32.0); Mean Corpuscular Volume 85.9 fL (80.0-100.0); Monocytes # (auto) 0.6 10 ^3/uL (0-1.3); Monocytes % (auto) 5.4 % (0.0-12.0); Neutrophils # (auto) 10.2 10 ^3/uL (1.6-8.6); Neutrophils % (auto) 84.3 % (37.0-80.0); Nucleated Red Blood Cells % 0.1 %; Red Blood Cells 4.83 10^6/uL (4.5-5.90); Red Cell Distribution Width 14.6 % (11.8-14.3); White Blood Cell 12.1 10^3/uL (4.4-10.8)
[2022-09-26 06:45] LABS: Potassium 4.5 mmol/L (3.5-5.1)
[2022-09-26 06:48] LABS: BUN/Creatinine Ratio 25.9 (10.0-20.0)
[2022-09-26] MEDS: cefTRIAXone 1GM/50ML D5W 50 ML IV SCH (09:40)
[2022-09-26] MEDS: AZITHROMYCIN 500MG/ 250ML 250 ML IV SCH (09:41)
[2022-09-26] MEDS: CARVEDILOL 3.125 MG TAB PO SCH ×3 (09:42→22:01)
[2022-09-26] MEDS: ENOXAPARIN SOD 40 MG/0.4 ML SYRINGE SC SCH (09:44)
[2022-09-26] MEDS: GABAPENTIN 300 MG CAP PO SCH ×2 (09:44→22:00)
[2022-09-26] MEDS: SACUBITRIL-VALSARTAN 24mg/26mg TAB PO SCH ×2 (09:49→22:00)
[2022-09-26 16:55] VITALS: BP 122/61
[2022-09-26] MEDS ORDERED: ALBUTEROL SULF 2.5 MG/0.5ML(0.5%) NEB SOLN NEB SCH (18:00)
[2022-09-26] MEDS ORDERED: IPRATROPIUM BROM 0.5 MG/2.5ML INH SOL NEB SCH (18:00)
[2022-09-26] MEDS: FUROSEMIDE 20 MG/2 ML VIAL IV SCH (18:48)
[2022-09-26 22:00] VITALS: BP 115/66
[2022-09-27] MEDS: ALBUTEROL SULF 2.5 MG/0.5ML(0.5%) NEB SOLN NEB SCH ×4 (02:25→18:53)
[2022-09-27] MEDS: IPRATROPIUM BROM 0.5 MG/2.5ML INH SOL NEB SCH ×4 (02:25→18:53)
[2022-09-27] MEDS: MORPHINE SULFATE INJ 2 MG/ml SYRG IV PRN ×3 (04:30→18:11)
[2022-09-27 05:00] VITALS: BP 106/58
[2022-09-27] MEDS: methylPREDNISolone SOD SUCC 40 MG/ML VL IV SCH ×3 (05:23→22:30)
[2022-09-27] MEDS: FUROSEMIDE 20 MG/2 ML VIAL IV SCH ×2 (05:27→18:10)
[2022-09-27] MEDS: ACCU-CHEK COMFORT CURVE STRIP VI SCH ×4 (06:24→21:32)
[2022-09-27] MEDS: InsuLIN REG 1unit/0.01ml Soln (100units/ml) SC SCH ×4 (06:26→21:33)
[2022-09-27 06:45] LABS: BUN/Creatinine Ratio 30.9 (10.0-20.0); Calcium 8.8 mg/dL (8.5-10.1); Potassium 4.1 mmol/L (3.5-5.1)
[2022-09-27 08:00] VITALS: BP 107/48
[2022-09-27] MEDS: SACUBITRIL-VALSARTAN 24mg/26mg TAB PO SCH ×2 (11:09→21:31)
[2022-09-27] MEDS: cefTRIAXone 1GM/50ML D5W 50 ML IV SCH (11:09)
[2022-09-27] MEDS: GABAPENTIN 300 MG CAP PO SCH ×2 (11:09→21:31)
[2022-09-27] MEDS: ENOXAPARIN SOD 40 MG/0.4 ML SYRINGE SC SCH (11:10)
[2022-09-27] MEDS: CARVEDILOL 3.125 MG TAB PO SCH ×2 (11:11→22:30)
[2022-09-27] MEDS: AZITHROMYCIN 500MG/ 250ML 250 ML IV SCH (12:43)
[2022-09-27 13:00] VITALS: BP 116/65
[2022-09-27 16:39] VITALS: BP 110/63
[2022-09-27 22:00] VITALS: BP 119/67
[2022-09-27 22:14] LABS: Alcohol, Urine < 3.0 mg/dL (0-10); Amphetamine Screen, Urine NEGATIVE (NEGATIVE); Barbiturate Scree,Urine NEGATIVE (NEGATIVE); Benzodiazephine Screen, Urine NEGATIVE (NEGATIVE); Cannabinoid Screen, Urine NEGATIVE (NEGATIVE); Cocaine Screen, Urine NEGATIVE (NEGATIVE); Opiate Scree,Urine NEGATIVE (NEGATIVE); Phencyclidine Screen, Urine NEGATIVE (NEGATIVE)
[2022-09-28 05:00] VITALS: BP 106/67
[2022-09-28] MEDS: FUROSEMIDE 20 MG/2 ML VIAL IV SCH ×2 (06:42→17:22)
[2022-09-28] MEDS: methylPREDNISolone SOD SUCC 40 MG/ML VL IV SCH ×2 (06:43→14:45)
[2022-09-28] MEDS: HYDROcodone-ACET 5/325MG TAB PO PRN (06:43)
[2022-09-28] MEDS: ACCU-CHEK COMFORT CURVE STRIP VI SCH ×3 (06:44→17:22)
[2022-09-28] MEDS: InsuLIN REG 1unit/0.01ml Soln (100units/ml) SC SCH ×3 (06:44→17:30)
[2022-09-28 07:13] LABS: BUN/Creatinine Ratio 34.1 (10.0-20.0); Potassium 4.2 mmol/L (3.5-5.1)
[2022-09-28] MEDS: IPRATROPIUM BROM 0.5 MG/2.5ML INH SOL NEB SCH ×2 (07:19→11:59)
[2022-09-28] MEDS: ALBUTEROL SULF 2.5 MG/0.5ML(0.5%) NEB SOLN NEB SCH ×2 (07:20→11:58)
[2022-09-28 07:49] VITALS: BP 106/67
[2022-09-28 09:00] VITALS: BP 112/65
[2022-09-28] MEDS: ENOXAPARIN SOD 40 MG/0.4 ML SYRINGE SC SCH (09:17)
[2022-09-28] MEDS: cefTRIAXone 1GM/50ML D5W 50 ML IV SCH (09:17)
[2022-09-28] MEDS: MORPHINE SULFATE INJ 2 MG/ml SYRG IV PRN ×2 (09:18→15:00)
[2022-09-28] MEDS: GABAPENTIN 300 MG CAP PO SCH (09:18)
[2022-09-28] MEDS: SACUBITRIL-VALSARTAN 24mg/26mg TAB PO SCH (09:19)
[2022-09-28] MEDS: CARVEDILOL 3.125 MG TAB PO SCH (09:19)
[2022-09-28] MEDS: AZITHROMYCIN 500MG/ 250ML 250 ML IV SCH (11:00)
[2022-09-28 13:00] VITALS: BP 107/75
[2022-09-28] MEDS ORDERED: IPR002IS NEB (15:30)
[2022-09-28] MEDS ORDERED: AMOX500T86 PO (15:30)
[2022-09-28] MEDS ORDERED: SACU1TAB PO (15:30)
[2022-09-28] MEDS ORDERED: PRED20TA2 PO (15:30)
[2022-09-28] MEDS ORDERED: CAR3125T PO (15:30)
[2022-09-28] MEDS ORDERED: FAMO20TA10 PO (15:30)
[2022-09-28] MEDS ORDERED: ALB5IS NEB (15:30)
[2022-09-28 16:07] VITALS: BP 112/65
[2022-09-28 17:15] VITALS: BP 117/68
== END 2022-09-28 18:16 | disposition home or self-care (01) | DRG 133 ==
LOC: ER 03:02 → EDBD 03:02 → TELE 06:56 → TELE-WESTW 09-26 14:33 → WEST WING 09-27 01:50
PROVIDERS: ADMIT Nurse Practitioner; ATTEND Hospitalist
PROC: 5A09357 Assistance with Respiratory Ventilation, Less than 24 Consecutive Hours, Continuous Positive Airway Pressure (ICD-10-PCS; principal; 2022-09-25)
DX: J96.01 Acute respiratory failure with hypoxia (principal); J18.9 Pneumonia, unspecified organism; J44.0 Chronic obstructive pulmonary disease with (acute) lower respiratory infection; I11.0 Hypertensive heart disease with heart failure; J45.901 Unspecified asthma with (acute) exacerbation; J44.1 Chronic obstructive pulmonary disease with (acute) exacerbation; E87.8 Other disorders of electrolyte and fluid balance, not elsewhere classified; I50.9 Heart failure, unspecified; J96.22 Acute and chronic respiratory failure with hypercapnia; E11.65 Type 2 diabetes mellitus with hyperglycemia; E66.01 Morbid (severe) obesity due to excess calories; F17.210 Nicotine dependence, cigarettes, uncomplicated; M19.09 Primary osteoarthritis, other specified site; Z20.822 Contact with and (suspected) exposure to COVID-19; K21.9 Gastro-esophageal reflux disease without esophagitis; Z82.49 Family history of ischemic heart disease and other diseases of the circulatory system; Z82.5 Family history of asthma and other chronic lower respiratory diseases; Z68.36 Body mass index [BMI] 36.0-36.9, adult
CPT/HCPCS: 36415; 36600; 71045; 80048; 80053; 80307; 81001; 82805; 82962; 83735; 83880; 84484; 85025; 85610; 85730; 87426; 93005; 94640; 94644; 94660; 96361; 96365; 96366; 96368; 96375; 99291; G0378; J0696; J1100; J1815; J2405

== ENCOUNTER 2023-05-03 09:12 | Inpatient (IN) | payer MEDICAID ==
[2023-05-03] VITALS (9 sets, daily range): BP systolic 116; BP diastolic 54; PULSE 70–91; RESP 20–22; TEMP 97.9; O2SAT 94–98
[~2023-05-03] VITALS: Ht 182.9 cm; Wt 114.0 kg
[~2023-05-03 09:12] MED LIST changes: +AMOX500T86 PO; -AZITTAB PO; +FAMO20TA10 PO; +GABA-1250 PO; -GABA300C10 PO; +IPR002IS NEB; -METH4PAK PO; +PRED20TA2 PO
[2023-05-03] MEDS ORDERED: ALBUTEROL MEDNEB 2.5 mg/3ml NEB ONE (09:29)
[2023-05-03] MEDS ORDERED: DexAMETHasone SOD PHOS 10MG/1ML VIAL INJ IV ONE (09:30)
[2023-05-03] MEDS ORDERED: SODIUM CHLORIDE 0.9% 2,000 ML IV ONE (09:30)
[2023-05-03] MEDS ORDERED: IPRATROPIUM BROM 0.5 MG/2.5ML INH SOL NEB ONE (09:30)
[2023-05-03] MEDS ORDERED: ALBUTEROL SULF 2.5 MG/0.5ML(0.5%) NEB SOLN NEB ONE (09:30)
[2023-05-03 09:36] LABS: Basophils # (auto) 0.1 10 ^3/uL (0-0.2); Basophils % (auto) 0.7 % (0.0-2.0); Eosinophils # (auto) 0.1 10 ^3/uL (0-0.8); Eosinophils % (auto) 1.2 % (0.0-7.0); Hematocrit 47.1 % (41.0-53.0); Hemoglobin 15.8 g/dL (13.5-17.5); Lymphocytes # (auto) 0.5 10 ^3/uL (0.4-5.4); Lymphocytes % (auto) 5.4 % (10.0-50.0); Mean Corpuscular Hemoglobin 28.9 pg (28.0-32.0); Mean Corpuscular Hgb Conc. 33.6 g/dL (32.0-36.0); Monocytes # (auto) 0.7 10 ^3/uL (0-1.3); Monocytes % (auto) 7.6 % (0.0-12.0); Neutrophils # (auto) 7.6 10 ^3/uL (1.6-8.6); Neutrophils % (auto) 85.1 % (37.0-80.0); Nucleated Red Blood Cells % 0.1 %; Red Blood Cells 5.48 10^6/uL (4.5-5.90); Red Cell Distribution Width 14.6 % (11.8-14.3); White Blood Cell 8.9 10^3/uL (4.4-10.8)
[2023-05-03 10:11] LABS: Alanine Aminotransferase 19 U/L (7-40); Albumin 4.8 g/dL (3.2-4.8); Alkaline Phosphatase 93 U/L (46-116); Anion Gap 8 (5-15); Aspartate Aminotransferase 28 U/L (13-40); BUN/Creatinine Ratio 12.1 (10.0-20.0); Blood Urea Nitrogen 11 mg/dL (9-23); Calcium 9.6 mg/dL (8.5-10.1); Carbon Dioxide 25 mmol/L (20-30); Chloride 104 mmol/L (98-107); Glucose 100 mg/dL (74-106); Potassium 4.7 mmol/L (3.5-5.1); Sodium 137 mmol/L (136-145)
[2023-05-03 10:12] LABS: Bilirubin, Total 0.7 mg/dL (0.2-1.0); Total Protein 7.1 g/dL (5.7-8.2)
[2023-05-03 10:31] LABS: INR 1.03 (0.9-1.15); Prothrombin Time 10.8 sec (9.3-11.8)
[2023-05-03 11:14] LABS: Base Excess -1.5 mmol/L (-2.0-2.0)
[2023-05-03 11:45] LABS: COVID19 ANTIGEN SOFIA FIA NEGATIVE (NEGATIVE); Rapid Influenza A Negative (Negative); Rapid Influenza B Negative (Negative)
[2023-05-03] MEDS ORDERED: DOCUSATE SOD 100 MG CAP PO PRN (12:15)
[2023-05-03] MEDS ORDERED: ONDANSETRON HCL 4 MG/2 ML VIAL IV PRN (12:15)
[2023-05-03] MEDS ORDERED: DEXTROSE (50%) 50ML SYRG IV PRN (12:30)
[2023-05-03] MEDS ORDERED: DOXYCYCLINE 100MG/250ML 250 ML IV ONE (12:30)
[2023-05-03] MEDS: IPRATROPIUM BROM 0.5 MG/2.5ML INH SOL NEB SCH ×3 (14:41→22:06)
[2023-05-03] MEDS: LEVALBUTEROL HCL 1.25 MG/3 ML NEB NEB SCH ×3 (14:41→22:06)
[2023-05-03] MEDS: CARVEDILOL 3.125 MG TAB PO SCH ×2 (15:20→22:00)
[2023-05-03] MEDS: LORATADINE 10 MG TAB PO SCH (15:21)
[2023-05-03] MEDS: ACCU-CHEK COMFORT CURVE STRIP VI SCH ×2 (17:00→22:53)
[2023-05-03] MEDS: InsuLIN REG 1unit/0.01ml Soln (100units/ml) SC SCH ×2 (17:00→22:54)
[2023-05-03] MEDS ORDERED: ACETAMINOPHEN 500 MG TAB PO PRN (17:30)
[2023-05-03] MEDS: methylPREDNISolone SOD SUCC 40 MG/ML VL IV SCH (18:49)
[2023-05-03] MEDS: DOXYCYCLINE 100MG/250ML 250 ML IV SCH (22:00)
[2023-05-03] MEDS: FAMOTIDINE 20 MG TAB PO SCH (22:51)
[2023-05-03] MEDS: GABAPENTIN 300 MG CAP PO SCH (22:51)
[2023-05-03] MEDS: MONTELUKAST SODIUM 10 MG TAB PO SCH (22:51)
[2023-05-03] MEDS: SACUBITRIL-VALSARTAN 24mg/26mg TAB PO SCH (22:51)
[2023-05-03] MEDS: ATORVASTATIN 20 MG TAB PO SCH (22:52)
[2023-05-03] MEDS ORDERED: MONT-8 PO (23:36)
[2023-05-03] MEDS ORDERED: ROSU10TA64 PO (23:37)
[2023-05-04] VITALS (16 sets, daily range): BP systolic 94–114; BP diastolic 54–70; PULSE 66–90; RESP 17–22; TEMP 97.4–98.3; O2SAT 93–99
[2023-05-04] MEDS: methylPREDNISolone SOD SUCC 40 MG/ML VL IV SCH ×5 (00:04→23:07)
[2023-05-04] MEDS: HYDROcodone-ACET 10/325MG TAB PO PRN ×4 (00:11→21:07)
[2023-05-04] MEDS: ACCU-CHEK COMFORT CURVE STRIP VI SCH ×4 (06:03→22:53)
[2023-05-04 06:08] LABS: Basophils # (auto) 0 10 ^3/uL (0-0.2); Basophils % (auto) 0.1 % (0.0-2.0); Eosinophils # (auto) 0 10 ^3/uL (0-0.8); Hemoglobin 14.4 g/dL (13.5-17.5); Lymphocytes % (auto) 13.2 % (10.0-50.0); Mean Corpuscular Hemoglobin 29.3 pg (28.0-32.0); Mean Corpuscular Hgb Conc. 34.4 g/dL (32.0-36.0); Mean Corpuscular Volume 85.4 fL (80.0-100.0); Monocytes # (auto) 0.2 10 ^3/uL (0-1.3); Monocytes % (auto) 3.2 % (0.0-12.0); Neutrophils # (auto) 6.2 10 ^3/uL (1.6-8.6); Neutrophils % (auto) 83.5 % (37.0-80.0); Nucleated Red Blood Cells % 0.1 %; Red Blood Cells 4.92 10^6/uL (4.5-5.90); Red Cell Distribution Width 14.3 % (11.8-14.3); White Blood Cell 7.4 10^3/uL (4.4-10.8)
[2023-05-04] MEDS: EMPAGLIFLOZIN 10 MG TAB PO SCH (06:11)
[2023-05-04] MEDS: IPRATROPIUM BROM 0.5 MG/2.5ML INH SOL NEB SCH ×5 (06:15→22:46)
[2023-05-04] MEDS: LEVALBUTEROL HCL 1.25 MG/3 ML NEB NEB SCH ×5 (06:16→22:46)
[2023-05-04] MEDS: InsuLIN REG 1unit/0.01ml Soln (100units/ml) SC SCH ×4 (06:20→23:06)
[2023-05-04 06:21] LABS: Alanine Aminotransferase 16 U/L (7-40); Alkaline Phosphatase 82 U/L (46-116); Anion Gap 7 (5-15); BUN/Creatinine Ratio 15.8 (10.0-20.0); Blood Urea Nitrogen 16 mg/dL (9-23); Calcium 9.4 mg/dL (8.7-10.4); Carbon Dioxide 23 mmol/L (20-30); Chloride 107 mmol/L (98-107); Glucose 186 mg/dL (74-106); Potassium 4.5 mmol/L (3.5-5.1); Sodium 137 mmol/L (136-145)
[2023-05-04 06:23] LABS: Albumin 4.2 g/dL (3.2-4.8); Aspartate Aminotransferase 10 U/L (13-40)
[2023-05-04 06:24] LABS: Bilirubin, Total 0.3 mg/dL (0.2-1.0); Total Protein 6.6 g/dL (5.7-8.2)
[2023-05-04] MEDS: SACUBITRIL-VALSARTAN 24mg/26mg TAB PO SCH ×2 (10:07→22:47)
[2023-05-04] MEDS: CARVEDILOL 3.125 MG TAB PO SCH ×2 (10:07→22:53)
[2023-05-04] MEDS: FAMOTIDINE 20 MG TAB PO SCH ×2 (10:08→22:48)
[2023-05-04] MEDS: GABAPENTIN 300 MG CAP PO SCH ×2 (10:08→22:48)
[2023-05-04] MEDS: LORATADINE 10 MG TAB PO SCH (10:08)
[2023-05-04] MEDS: DOXYCYCLINE 100MG/250ML 250 ML IV SCH ×2 (10:09→22:47)
[2023-05-04] MEDS ORDERED: methylPREDNISolone SOD SUCC 40 MG/ML VL IV SCH (15:00)
[2023-05-04] MEDS: MONTELUKAST SODIUM 10 MG TAB PO SCH (22:49)
[2023-05-04] MEDS: ATORVASTATIN 20 MG TAB PO SCH (22:51)
[2023-05-05] VITALS (20 sets, daily range): BP systolic 94–119; BP diastolic 53–67; PULSE 55–78; RESP 16–20; TEMP 96.3–98.7; O2SAT 95–100
[2023-05-05] MEDS: methylPREDNISolone SOD SUCC 40 MG/ML VL IV SCH ×3 (06:02→17:26)
[2023-05-05] MEDS: HYDROcodone-ACET 10/325MG TAB PO PRN ×3 (06:03→20:53)
[2023-05-05] MEDS: ACCU-CHEK COMFORT CURVE STRIP VI SCH ×3 (06:12→17:26)
[2023-05-05] MEDS: InsuLIN REG 1unit/0.01ml Soln (100units/ml) SC SCH ×4 (06:19→23:12)
[2023-05-05] MEDS: EMPAGLIFLOZIN 10 MG TAB PO SCH (06:25)
[2023-05-05] MEDS: IPRATROPIUM BROM 0.5 MG/2.5ML INH SOL NEB SCH ×5 (06:32→22:20)
[2023-05-05] MEDS: LEVALBUTEROL HCL 1.25 MG/3 ML NEB NEB SCH ×5 (06:33→22:20)
[2023-05-05] MEDS: DOXYCYCLINE 100MG/250ML 250 ML IV SCH ×2 (10:26→22:01)
[2023-05-05] MEDS: SACUBITRIL-VALSARTAN 24mg/26mg TAB PO SCH ×2 (10:27→22:04)
[2023-05-05] MEDS: GABAPENTIN 300 MG CAP PO SCH ×2 (10:27→22:05)
[2023-05-05] MEDS: LORATADINE 10 MG TAB PO SCH (10:27)
[2023-05-05] MEDS: FAMOTIDINE 20 MG TAB PO SCH ×2 (10:27→22:05)
[2023-05-05] MEDS: CARVEDILOL 3.125 MG TAB PO SCH ×2 (10:28→22:06)
[2023-05-05] MEDS: ATORVASTATIN 20 MG TAB PO SCH (22:05)
[2023-05-05] MEDS: MONTELUKAST SODIUM 10 MG TAB PO SCH (22:06)
[2023-05-06] VITALS (17 sets, daily range): BP systolic 98–127; BP diastolic 55–82; PULSE 65–80; RESP 15–20; TEMP 97.6–98.3; O2SAT 92–100
[2023-05-06] MEDS: ACCU-CHEK COMFORT CURVE STRIP VI SCH ×5 (00:42→21:57)
[2023-05-06] MEDS: methylPREDNISolone SOD SUCC 40 MG/ML VL IV SCH ×2 (00:42→06:29)
[2023-05-06] MEDS: HYDROcodone-ACET 10/325MG TAB PO PRN (04:44)
[2023-05-06] MEDS: LEVALBUTEROL HCL 1.25 MG/3 ML NEB NEB SCH ×5 (06:15→22:51)
[2023-05-06] MEDS: IPRATROPIUM BROM 0.5 MG/2.5ML INH SOL NEB SCH ×5 (06:15→22:51)
[2023-05-06] MEDS: EMPAGLIFLOZIN 10 MG TAB PO SCH (06:28)
[2023-05-06] MEDS: InsuLIN REG 1unit/0.01ml Soln (100units/ml) SC SCH ×4 (06:48→21:48)
[2023-05-06] MEDS: DOXYCYCLINE 100MG/250ML 250 ML IV SCH ×2 (09:55→22:03)
[2023-05-06] MEDS: FAMOTIDINE 20 MG TAB PO SCH ×2 (09:56→21:56)
[2023-05-06] MEDS: SACUBITRIL-VALSARTAN 24mg/26mg TAB PO SCH ×2 (09:56→21:56)
[2023-05-06] MEDS: GABAPENTIN 300 MG CAP PO SCH ×2 (09:56→21:56)
[2023-05-06] MEDS: LORATADINE 10 MG TAB PO SCH (09:57)
[2023-05-06] MEDS: CARVEDILOL 3.125 MG TAB PO SCH ×2 (09:57→21:57)
[2023-05-06] MEDS ORDERED: ACETAMINOPHEN 500 MG TAB PO PRN (11:45)
[2023-05-06] MEDS ORDERED: HYDROcodone-ACET 10/325MG TAB PO PRN ×2 (11:45)
[2023-05-06] MEDS: methylPREDNISolone SOD SUCC 125 MG/2 ML VL IV SCH ×3 (12:14→23:40)
[2023-05-06] MEDS: AZITHROMYCIN 500MG/ 250ML 250 ML IV SCH (12:14)
[2023-05-06] MEDS: MORPHINE SULFATE INJ 2 MG/ml SYRG IV PRN ×3 (12:24→23:54)
[2023-05-06] MEDS: ATORVASTATIN 20 MG TAB PO SCH (21:56)
[2023-05-06] MEDS: MONTELUKAST SODIUM 10 MG TAB PO SCH (21:56)
[2023-05-07] VITALS (14 sets, daily range): BP systolic 97–136; BP diastolic 59–80; PULSE 63–78; RESP 16–20; TEMP 97.3–98; O2SAT 91–96
[2023-05-07] MEDS: ACCU-CHEK COMFORT CURVE STRIP VI SCH ×4 (05:44→22:13)
[2023-05-07] MEDS: InsuLIN REG 1unit/0.01ml Soln (100units/ml) SC SCH ×4 (05:57→22:15)
[2023-05-07] MEDS: LEVALBUTEROL HCL 1.25 MG/3 ML NEB NEB SCH ×5 (06:13→22:09)
[2023-05-07] MEDS: IPRATROPIUM BROM 0.5 MG/2.5ML INH SOL NEB SCH ×5 (06:13→22:09)
[2023-05-07] MEDS: EMPAGLIFLOZIN 10 MG TAB PO SCH (06:21)
[2023-05-07] MEDS: methylPREDNISolone SOD SUCC 125 MG/2 ML VL IV SCH ×2 (06:21→10:55)
[2023-05-07] MEDS: MORPHINE SULFATE INJ 2 MG/ml SYRG IV PRN ×4 (06:40→20:45)
[2023-05-07] MEDS: DOXYCYCLINE 100MG/250ML 250 ML IV SCH (10:54)
[2023-05-07] MEDS: AZITHROMYCIN 500MG/ 250ML 250 ML IV SCH (10:54)
[2023-05-07] MEDS: FAMOTIDINE 20 MG TAB PO SCH ×2 (10:55→21:58)
[2023-05-07] MEDS: SACUBITRIL-VALSARTAN 24mg/26mg TAB PO SCH ×2 (10:55→21:58)
[2023-05-07] MEDS: LORATADINE 10 MG TAB PO SCH (10:55)
[2023-05-07] MEDS: GABAPENTIN 300 MG CAP PO SCH ×2 (10:55→21:58)
[2023-05-07] MEDS: CARVEDILOL 3.125 MG TAB PO SCH ×2 (10:56→21:58)
[2023-05-07 12:45] LABS: Base Excess 2.9 mmol/L (-2.0-2.0)
[2023-05-07] MEDS: MONTELUKAST SODIUM 10 MG TAB PO SCH (21:58)
[2023-05-07] MEDS: ATORVASTATIN 20 MG TAB PO SCH (21:58)
[2023-05-07] MEDS: DOXYCYCLINE 100 MG TAB/CAP PO SCH (21:58)
[2023-05-07] MEDS: methylPREDNISolone SOD SUCC 40 MG/ML VL IV SCH (21:59)
[2023-05-08] VITALS (10 sets, daily range): BP systolic 104–109; BP diastolic 52–60; PULSE 53–78; RESP 16–20; TEMP 97.3–97.8; O2SAT 90–96
[2023-05-08] MEDS: MORPHINE SULFATE INJ 2 MG/ml SYRG IV PRN ×3 (02:05→16:04)
[2023-05-08] MEDS: EMPAGLIFLOZIN 10 MG TAB PO SCH (06:14)
[2023-05-08] MEDS: ACCU-CHEK COMFORT CURVE STRIP VI SCH ×3 (06:16→16:59)
[2023-05-08] MEDS: InsuLIN REG 1unit/0.01ml Soln (100units/ml) SC SCH ×3 (06:25→16:59)
[2023-05-08] MEDS: IPRATROPIUM BROM 0.5 MG/2.5ML INH SOL NEB SCH ×3 (06:38→15:07)
[2023-05-08] MEDS: LEVALBUTEROL HCL 1.25 MG/3 ML NEB NEB SCH ×3 (06:38→15:07)
[2023-05-08] MEDS: methylPREDNISolone SOD SUCC 40 MG/ML VL IV SCH (10:51)
[2023-05-08] MEDS: LORATADINE 10 MG TAB PO SCH (10:51)
[2023-05-08] MEDS: GABAPENTIN 300 MG CAP PO SCH (10:51)
[2023-05-08] MEDS: FAMOTIDINE 20 MG TAB PO SCH (10:52)
[2023-05-08] MEDS: DOXYCYCLINE 100 MG TAB/CAP PO SCH (10:52)
[2023-05-08] MEDS: CARVEDILOL 3.125 MG TAB PO SCH (11:51)
[2023-05-08] MEDS: SACUBITRIL-VALSARTAN 24mg/26mg TAB PO SCH (11:51)
[2023-05-08] MEDS ORDERED: BUDE1AER4 IN (13:33)
[2023-05-08] MEDS ORDERED: PRED20TA2 PO (13:33)
[2023-05-08 15:08] LABS: Base Excess 1.6 mmol/L (-2.0-2.0)
== END 2023-05-08 20:45 | disposition home or self-care (01) | DRG 140 ==
LOC: ER 09:12 → OVERFLOW 12:12 → CENTRAL 23:24
PROVIDERS: ADMIT Nurse Practitioner Family; ATTEND Nurse Practitioner Acute Care
PROC: 5A09357 Assistance with Respiratory Ventilation, Less than 24 Consecutive Hours, Continuous Positive Airway Pressure (ICD-10-PCS; principal; 2023-05-03)
DX: J43.9 Emphysema, unspecified (principal); J96.21 Acute and chronic respiratory failure with hypoxia; I50.22 Chronic systolic (congestive) heart failure; E11.9 Type 2 diabetes mellitus without complications; E78.5 Hyperlipidemia, unspecified; K21.9 Gastro-esophageal reflux disease without esophagitis; F17.210 Nicotine dependence, cigarettes, uncomplicated; M19.90 Unspecified osteoarthritis, unspecified site; G47.33 Obstructive sleep apnea (adult) (pediatric); Z20.822 Contact with and (suspected) exposure to COVID-19; Z91.199 Patient's noncompliance with other medical treatment and regimen due to unspecified reason; Z79.899 Other long term (current) drug therapy; Z79.84 Long term (current) use of oral hypoglycemic drugs; Z82.49 Family history of ischemic heart disease and other diseases of the circulatory system; Z82.5 Family history of asthma and other chronic lower respiratory diseases
CPT/HCPCS: 36415; 36600; 71045; 80053; 82805; 82962; 83605; 83880; 84484; 85025; 85379; 85610; 87040; 87070; 87205; 87426; 87804; 93005; 94640; 94660; 96365; 96375; G0378; J1100; J1815; J3490

== ENCOUNTER 2023-08-20 10:21 | Inpatient (IN) | payer MEDICAID ==
[2023-08-20] VITALS (11 sets, daily range): BP systolic 139; BP diastolic 75; PULSE 85–94; RESP 14–26; TEMP 98.2; O2SAT 92–98
[~2023-08-20] VITALS: Ht 182.9 cm; Wt 106.9 kg
[~2023-08-20 10:21] MED LIST changes: -AMOX500T86 PO; +BUDE1AER4 IN; -CETI10CA PO; -FAMO20TA10 PO; +MONT-8 PO; +ROSU10TA64 PO
[2023-08-20] MEDS: MORPHINE SULFATE 4 MG/ML SYR/VIAL IV ONE (11:08)
[2023-08-20] MEDS: ONDANSETRON HCL 4 MG/2 ML VIAL IV ONE (11:08)
[2023-08-20] MEDS: methylPREDNISolone SOD SUCC 125 MG/2 ML VL IV ONE (11:08)
[2023-08-20 11:11] LABS: Chloride 105 mmol/L (98-107); Potassium 4.5 mmol/L (3.5-5.1); Sodium 140 mmol/L (136-145)
[2023-08-20 11:12] LABS: Anion Gap 8 (5-15); Carbon Dioxide 27 mmol/L (20-30)
[2023-08-20 11:13] LABS: Calcium 9.9 mg/dL (8.5-10.1)
[2023-08-20 11:17] LABS: BUN/Creatinine Ratio 12.9 (10.0-20.0); Blood Urea Nitrogen 12 mg/dL (9-23); Glucose 102 mg/dL (74-106)
[2023-08-20 11:19] LABS: Basophils # (auto) 0 10 ^3/uL (0-0.2); Basophils % (auto) 0.3 % (0.0-2.0); Eosinophils # (auto) 0.1 10 ^3/uL (0-0.8); Eosinophils % (auto) 0.5 % (0.0-7.0); Hematocrit 45.5 % (41.0-53.0); Hemoglobin 15.1 g/dL (13.5-17.5); Lymphocytes # (auto) 1.1 10 ^3/uL (0.4-5.4); Lymphocytes % (auto) 8.5 % (10.0-50.0); Mean Corpuscular Hemoglobin 28.8 pg (28.0-32.0); Mean Corpuscular Hgb Conc. 33.2 g/dL (32.0-36.0); Mean Corpuscular Volume 86.7 fL (80.0-100.0); Monocytes # (auto) 0.4 10 ^3/uL (0-1.3); Monocytes % (auto) 3.2 % (0.0-12.0); Neutrophils # (auto) 11.2 10 ^3/uL (1.6-8.6); Neutrophils % (auto) 87.5 % (37.0-80.0); Red Blood Cells 5.24 10^6/uL (4.5-5.90); Red Cell Distribution Width 15.3 % (11.8-14.3); White Blood Cell 12.8 10^3/uL (4.4-10.8)
[2023-08-20] MEDS: IPRATROPIUM BROM 0.5 MG/2.5ML INH SOL HHN ONE (11:20)
[2023-08-20] MEDS: ALBUTEROL SULF 2.5 MG/0.5ML(0.5%) NEB SOLN HHN ONE (11:20)
[2023-08-20] MEDS ORDERED: DEXTROSE (50%) 50ML SYRG IV PRN (13:00)
[2023-08-20] MEDS ORDERED: DOCUSATE SOD 100 MG CAP PO PRN (13:00)
[2023-08-20] MEDS ORDERED: ACETAMINOPHEN 325 MG TAB PO PRN (13:00)
[2023-08-20] MEDS: AZITHROMYCIN 500MG/ 250ML 250 ML IV ONE (13:11)
[2023-08-20] MEDS ORDERED: FUR20T PO (13:35)
[2023-08-20] MEDS ORDERED: CARV3.1240 PO (13:35)
[2023-08-20] MEDS: methylPREDNISolone SOD SUCC 40 MG/ML VL IV SCH (14:00)
[2023-08-20] MEDS: ALBUTEROL SULF 2.5 MG/0.5ML(0.5%) NEB SOLN NEB SCH (14:24)
[2023-08-20] MEDS: IPRATROPIUM BROM 0.5 MG/2.5ML INH SOL NEB SCH (14:24)
[2023-08-20] MEDS: HYDROcodone-ACET 5/325MG TAB PO PRN (16:23)
[2023-08-20] MEDS: MORPHINE SULFATE INJ 2 MG/ml SYRG IV PRN (17:01)
[2023-08-20] MEDS: ONDANSETRON HCL 4 MG/2 ML VIAL IV PRN (17:02)
[2023-08-20] MEDS: ACCU-CHEK COMFORT CURVE STRIP VI SCH (17:02)
[2023-08-20] MEDS: InsuLIN REG 1unit/0.01ml Soln (100units/ml) SC SCH (17:19)
[2023-08-20] MEDS: cefTRIAXone 1GM/50ML D5W 50 ML IV ONE (18:34)
[2023-08-20] MEDS ORDERED: PATIENTS OWN MEDICATION (Gabapentin 600 MG) PO SCH (22:00)
[2023-08-20] MEDS: SACUBITRIL-VALSARTAN 24mg/26mg TAB PO SCH (22:00)
[2023-08-20] MEDS: CARVEDILOL 3.125 MG TAB PO SCH (22:00)
[2023-08-20] MEDS: GABAPENTIN 300 MG CAP PO SCH (23:02)
[2023-08-20] MEDS: ATORVASTATIN 20 MG TAB PO SCH (23:03)
[2023-08-21] VITALS (20 sets, daily range): BP systolic 120–129; BP diastolic 67–72; PULSE 71–88; RESP 16–22; TEMP 97.6–98.6; O2SAT 92–99
[2023-08-21 00:16] LABS: Urine Bacteria NONE SEEN /hpf (None Seen); Urine Blood Negative /uL (Negative); Urine Clarity Clear (Clear); Urine Color Colorless (Yellow); Urine Mucus FEW (None Seen); Urine Protein, UAD Negative (Negative); Urine Urobilinogen Normal (Negative); Urine WBC <1 /hpf (0 - 3); Urine pH 5.5 (5.0-8.0)
[2023-08-21] MEDS: EMPAGLIFLOZIN 10 MG TAB PO SCH (06:48)
[2023-08-21 06:57] LABS: Alanine Aminotransferase 11 U/L (7-40); Albumin 4.2 g/dL (3.2-4.8); Alkaline Phosphatase 65 U/L (46-116); Anion Gap 8 (5-15); Aspartate Aminotransferase 13 U/L (13-40); Bilirubin, Total 0.4 mg/dL (0.2-1.0); Blood Urea Nitrogen 15 mg/dL (9-23); Calcium 9.5 mg/dL (8.5-10.1); Carbon Dioxide 26 mmol/L (20-30); Chloride 104 mmol/L (98-107); Glucose 161 mg/dL (74-106); Potassium 4.5 mmol/L (3.5-5.1); Sodium 138 mmol/L (136-145)
[2023-08-21 06:58] LABS: Hematocrit 41.1 % (41.0-53.0); Hemoglobin 13.9 g/dL (13.5-17.5); Mean Corpuscular Hemoglobin 29.2 pg (28.0-32.0); Mean Corpuscular Hgb Conc. 33.9 g/dL (32.0-36.0); Mean Corpuscular Volume 86.1 fL (80.0-100.0); Red Blood Cells 4.77 10^6/uL (4.5-5.90); Red Cell Distribution Width 15.1 % (11.8-14.3); Total Protein 6.4 g/dL (5.7-8.2); White Blood Cell 11.9 10^3/uL (4.4-10.8)
[2023-08-21 07:21] LABS: Band Neutrophils % (manual) 0; Basophils % (manual) 0 (0.0-2.0); Blast Cells 0; Eosinophils % (manual) 0 (0-7); Metamyelocytes % 0; Myelocytes % 0; Promyelocytes % 0; Reactive Lymphocytes 0
[2023-08-21] MEDS: PANTOPRAZOLE 40 MG/10 ML VIAL INJ IV SCH (08:28)
[2023-08-21] MEDS: cefTRIAXone 1GM/50ML D5W 50 ML IV SCH (08:29)
[2023-08-21] MEDS: MONTELUKAST SODIUM 10 MG TAB PO SCH (08:29)
[2023-08-21] MEDS: AZITHROMYCIN 500MG/ 250ML 250 ML IV SCH (08:30)
[2023-08-21] MEDS: FUROSEMIDE 20 MG TAB PO SCH (08:31)
[2023-08-21] MEDS: FUROSEMIDE 20 MG/2 ML VIAL IV ONE (10:37)
[2023-08-21] MEDS: PANTOPRAZOLE 40 MG TAB PO ONE (10:38)
[2023-08-21 12:41] LABS: Lymphocytes % (manual) 11 (10.0-50.0); Monocytes % (manual) 10 (0-12); Platelet Estimate Adequate
[2023-08-21 13:02] LABS: Rapid Influenza A Negative (Negative); Rapid Influenza B Negative (Negative)
[2023-08-21] MEDS: FUROSEMIDE 20 MG/2 ML VIAL IV SCH (17:13)
[2023-08-21] MEDS ORDERED: HYDR-4795 PO (17:14)
[2023-08-21] MEDS ORDERED: ALBU0.084 NEB (17:18)
[2023-08-21] MEDS ORDERED: SEMA4INJ SC (17:19)
[2023-08-22] VITALS (19 sets, daily range): BP systolic 108–125; BP diastolic 63–77; PULSE 60–92; RESP 18–20; TEMP 97.4–98.2; O2SAT 91–97
[2023-08-22 06:23] LABS: Basophils # (auto) 0 10 ^3/uL (0-0.2); Eosinophils # (auto) 0 10 ^3/uL (0-0.8); Hemoglobin 14.7 g/dL (13.5-17.5); Lymphocytes % (auto) 8.6 % (10.0-50.0); Mean Corpuscular Hgb Conc. 33.4 g/dL (32.0-36.0); Mean Corpuscular Volume 86.6 fL (80.0-100.0); Monocytes # (auto) 0.4 10 ^3/uL (0-1.3); Monocytes % (auto) 3.3 % (0.0-12.0); Neutrophils # (auto) 10.7 10 ^3/uL (1.6-8.6); Neutrophils % (auto) 88.1 % (37.0-80.0); Nucleated Red Blood Cells % 0.1 %; Red Blood Cells 5.08 10^6/uL (4.5-5.90); Red Cell Distribution Width 15.5 % (11.8-14.3); White Blood Cell 12.2 10^3/uL (4.4-10.8)
[2023-08-22 06:28] LABS: Chloride 104 mmol/L (98-107); Potassium 4.4 mmol/L (3.5-5.1); Sodium 137 mmol/L (136-145)
[2023-08-22 06:29] LABS: Anion Gap 7 (5-15); Carbon Dioxide 26 mmol/L (20-30)
[2023-08-22 06:34] LABS: BUN/Creatinine Ratio 19.3 (10.0-20.0); Blood Urea Nitrogen 17 mg/dL (9-23); Glucose 172 mg/dL (74-106)
[2023-08-22 06:35] LABS: Magnesium 2.3 mg/dL (1.6-2.6)
[2023-08-22] MEDS: PANTOPRAZOLE 40 MG TAB PO SCH (08:59)
[2023-08-22] MEDS: methylPREDNISolone SOD SUCC 40 MG/ML VL IV SCH (12:16)
[2023-08-22] MEDS: FUROSEMIDE 20 MG TAB PO ONE (12:32)
[2023-08-22] MEDS: FUROSEMIDE 20 MG TAB PO SCH (17:45)
[2023-08-23] VITALS (11 sets, daily range): BP systolic 117–125; BP diastolic 67–78; PULSE 70–82; RESP 16–20; TEMP 36.4; O2SAT 92–100
[2023-08-23] MEDS: PHENYLEPHRINE HCL 10 MG/ML VL ONE (04:38)
[2023-08-23 06:39] LABS: Anion Gap 7 (5-15); Carbon Dioxide 27 mmol/L (20-30); Chloride 103 mmol/L (98-107); Potassium 4.3 mmol/L (3.5-5.1); Sodium 137 mmol/L (136-145)
[2023-08-23 06:41] LABS: Basophils # (auto) 0 10 ^3/uL (0-0.2); Eosinophils # (auto) 0 10 ^3/uL (0-0.8); Hematocrit 44.5 % (41.0-53.0); Hemoglobin 14.9 g/dL (13.5-17.5); Lymphocytes # (auto) 1.2 10 ^3/uL (0.4-5.4); Lymphocytes % (auto) 8.7 % (10.0-50.0); Mean Corpuscular Hemoglobin 28.9 pg (28.0-32.0); Mean Corpuscular Hgb Conc. 33.4 g/dL (32.0-36.0); Mean Corpuscular Volume 86.7 fL (80.0-100.0); Monocytes # (auto) 0.7 10 ^3/uL (0-1.3); Monocytes % (auto) 5.2 % (0.0-12.0); Neutrophils # (auto) 11.6 10 ^3/uL (1.6-8.6); Neutrophils % (auto) 86.1 % (37.0-80.0); Nucleated Red Blood Cells % 0.1 %; Red Blood Cells 5.14 10^6/uL (4.5-5.90); Red Cell Distribution Width 15.5 % (11.8-14.3); White Blood Cell 13.5 10^3/uL (4.4-10.8)
[2023-08-23 06:45] LABS: BUN/Creatinine Ratio 15.9 (10.0-20.0); Blood Urea Nitrogen 14 mg/dL (9-23); Glucose 161 mg/dL (74-106); Magnesium 2.4 mg/dL (1.6-2.6)
[2023-08-23] MEDS: MUPIROCIN 2% OINT 15gm or 22gm FOR MRSA NARES EACHNOSTRI SCH (08:15)
[2023-08-23] MEDS: DOXYCYCLINE 100MG/250ML 250 ML IV SCH (08:30)
[2023-08-23] MEDS ORDERED: DOXY-267 PO (08:35)
[2023-08-23] MEDS ORDERED: FUR20T PO (08:35)
[2023-08-23] MEDS ORDERED: POTA10TA51 PO (08:35)
[2023-08-23] MEDS ORDERED: AUG875T PO (08:35)
[2023-08-23] MEDS ORDERED: MUPI2OIN2 EACHNOSTRI (08:35)
[2023-08-23] MEDS: DOXYCYCLINE 100MG/250ML 250 ML IV ONE (12:11)
== END 2023-08-23 14:00 | disposition home or self-care (01) | DRG 137 ==
LOC: ER 10:21 → OVERFLOW 13:35 → WEST WING 23:15
PROVIDERS: ADMIT Internal Medicine; ATTEND Internal Medicine
DX: J15.69 Pneumonia due to other Gram-negative bacteria (principal); J96.21 Acute and chronic respiratory failure with hypoxia; I50.23 Acute on chronic systolic (congestive) heart failure; J44.1 Chronic obstructive pulmonary disease with (acute) exacerbation; J44.0 Chronic obstructive pulmonary disease with (acute) lower respiratory infection; J15.9 Unspecified bacterial pneumonia; E11.9 Type 2 diabetes mellitus without complications; E78.5 Hyperlipidemia, unspecified; K21.9 Gastro-esophageal reflux disease without esophagitis; Z87.891 Personal history of nicotine dependence; Z83.3 Family history of diabetes mellitus; Z82.49 Family history of ischemic heart disease and other diseases of the circulatory system; R65.10 Systemic inflammatory response syndrome (SIRS) of non-infectious origin without acute organ dysfunction
CPT/HCPCS: 36415; 71045; 71250; 80048; 80053; 81001; 82962; 83036; 83605; 83735; 83880; 84484; 85007; 85025; 85027; 85379; 87040; 87081; 87804; 93005; 93306; 94640; 94644; 96365; 96367; 96375; 99291; C9113; G0378; J1815; J2405; J3490

== ENCOUNTER 2023-12-23 18:48 | Inpatient (IN) | payer MEDICAID ==
[~2023-12-23] VITALS: Ht 182.9 cm; Wt 62.3 kg
[~2023-12-23 18:48] MED LIST changes: -ALB5IS NEB; +ALBU0.084 NEB; +AZITTAB2 PO; -CAR3125T PO; +CARV3.1240 PO; +FUR20T PO; -GABA-1250 PO; +HYDR-4795 PO; -HYDR-4798 PO; +POTA-36 PO; +PRED10TA PO; -SACU1TAB PO; +SEMA4INJ SC
[2023-12-23] MEDS: IPRATROPIUM BROM 0.5 MG/2.5ML INH SOL NEB ONE (19:30)
[2023-12-23] MEDS: ALBUTEROL SULF 2.5 MG/0.5ML(0.5%) NEB SOLN NEB ONE (19:30)
[2023-12-23 19:53] LABS: Basophils # (auto) 0 10 ^3/uL (0-0.2); Basophils % (auto) 0.6 % (0.0-2.0); Eosinophils # (auto) 0.3 10 ^3/uL (0-0.8); Eosinophils % (auto) 3.6 % (0.0-7.0); Hematocrit 45.7 % (41.0-53.0); Hemoglobin 15.4 g/dL (13.5-17.5); Lymphocytes % (auto) 26.7 % (10.0-50.0); Mean Corpuscular Hemoglobin 29.3 pg (28.0-32.0); Mean Corpuscular Hgb Conc. 33.7 g/dL (32.0-36.0); Mean Corpuscular Volume 86.9 fL (80.0-100.0); Monocytes # (auto) 0.6 10 ^3/uL (0-1.3); Monocytes % (auto) 8.3 % (0.0-12.0); Neutrophils # (auto) 4.6 10 ^3/uL (1.6-8.6); Neutrophils % (auto) 60.8 % (37.0-80.0); Nucleated Red Blood Cells % 0.1 %; Red Blood Cells 5.26 10^6/uL (4.5-5.90); Red Cell Distribution Width 14.6 % (11.8-14.3); White Blood Cell 7.6 10^3/uL (4.4-10.8)
[2023-12-23 20:01] LABS: Chloride 111 mmol/L (98-107); Potassium 3.8 mmol/L (3.5-5.1); Sodium 140 mmol/L (136-145)
[2023-12-23 20:02] LABS: Anion Gap 6 (5-15); Calcium 9.3 mg/dL (8.5-10.1); Carbon Dioxide 23 mmol/L (20-30)
[2023-12-23] MEDS: methylPREDNISolone SOD SUCC 125 MG/2 ML VL IV ONE (20:04)
[2023-12-23 20:07] LABS: BUN/Creatinine Ratio 9.5 (10.0-20.0); Blood Urea Nitrogen 8 mg/dL (9-23); Glucose 103 mg/dL (74-106)
[2023-12-23] MEDS ORDERED: DEXTROSE (50%) 50ML SYRG IV PRN (21:45)
[2023-12-23] MEDS ORDERED: ONDANSETRON HCL 4 MG/2 ML VIAL IV PRN (21:45)
[2023-12-23] MEDS ORDERED: ACETAMINOPHEN 325 MG TAB PO PRN (21:45)
[2023-12-23] MEDS ORDERED: TEMAZEPAM 15 MG CAP PO PRN (21:45)
[2023-12-23] MEDS: ACCU-CHEK COMFORT CURVE STRIP VI SCH (22:29)
[2023-12-23] MEDS: CARVEDILOL 3.125 MG TAB PO SCH (22:30)
[2023-12-23] MEDS: GABAPENTIN 300 MG CAP PO SCH (22:32)
[2023-12-23] MEDS: InsuLIN REG 1unit/0.01ml Soln (100units/ml) SC SCH (22:33)
[2023-12-23 22:39] VITALS: PULSE 88; RESP 15; O2SAT 95
[2023-12-23] MEDS: HYDROcodone-ACET 5/325MG TAB PO PRN (23:01)
[2023-12-23 23:13] VITALS: BP 112/55; PULSE 88; RESP 16; TEMP 98.9; O2SAT 95
[2023-12-24] VITALS (18 sets, daily range): BP systolic 104–132; BP diastolic 58–70; PULSE 60–90; RESP 16–24; TEMP 97.6–98.6; O2SAT 91–99
[2023-12-24] MEDS: ALBUTEROL SULF 2.5 MG/0.5ML(0.5%) NEB SOLN NEB PRN (02:08)
[2023-12-24] MEDS: IPRATROPIUM BROM 0.5 MG/2.5ML INH SOL NEB PRN (02:08)
[2023-12-24 06:27] LABS: Chloride 109 mmol/L (98-107); Potassium 4.7 mmol/L (3.5-5.1); Sodium 139 mmol/L (136-145)
[2023-12-24 06:28] LABS: Anion Gap 7 (5-15); Calcium 9.9 mg/dL (8.7-10.4); Carbon Dioxide 23 mmol/L (20-30)
[2023-12-24 06:29] LABS: Basophils # (auto) 0 10 ^3/uL (0-0.2); Basophils % (auto) 0.2 % (0.0-2.0); Eosinophils # (auto) 0 10 ^3/uL (0-0.8); Hematocrit 46.6 % (41.0-53.0); Hemoglobin 15.4 g/dL (13.5-17.5); Lymphocytes # (auto) 0.8 10 ^3/uL (0.4-5.4); Lymphocytes % (auto) 12.7 % (10.0-50.0); Mean Corpuscular Hgb Conc. 32.9 g/dL (32.0-36.0); Mean Corpuscular Volume 88.1 fL (80.0-100.0); Monocytes # (auto) 0.1 10 ^3/uL (0-1.3); Monocytes % (auto) 0.8 % (0.0-12.0); Neutrophils # (auto) 5.3 10 ^3/uL (1.6-8.6); Neutrophils % (auto) 86.3 % (37.0-80.0); Red Blood Cells 5.29 10^6/uL (4.5-5.90); Red Cell Distribution Width 14.6 % (11.8-14.3); White Blood Cell 6.2 10^3/uL (4.4-10.8)
[2023-12-24 06:33] LABS: BUN/Creatinine Ratio 12.6 (10.0-20.0); Blood Urea Nitrogen 12 mg/dL (9-23)
[2023-12-24 06:43] LABS: Glucose 232 mg/dL (74-106)
[2023-12-24] MEDS: ALBUTEROL SULF 2.5 MG/0.5ML(0.5%) NEB SOLN NEB SCH (06:59)
[2023-12-24] MEDS: IPRATROPIUM BROM 0.5 MG/2.5ML INH SOL NEB SCH (06:59)
[2023-12-24] MEDS: FUROSEMIDE 20 MG TAB PO SCH (09:35)
[2023-12-24] MEDS: methylPREDNISolone SOD SUCC 40 MG/ML VL IV SCH (09:35)
[2023-12-24] MEDS: BUDESONIDE (INHALATION) 0.5 MG/2 ML NEB NEB SCH (10:00)
[2023-12-24] MEDS ORDERED: SACU1TAB PO (14:04)
[2023-12-24] MEDS ORDERED: AUG875T PO (14:04)
[2023-12-24] MEDS ORDERED: HYDR-4798 PO (14:07)
[2023-12-24] MEDS ORDERED: BECL80AE11 IN (14:07)
[2023-12-24] MEDS: AZITHROMYCIN 500MG/ 250ML 250 ML IV ONE (15:49)
[2023-12-24] MEDS: LIDOCAINE 5% TOPICAL PATCH TOP ONE (15:50)
[2023-12-24] MEDS: SACUBITRIL-VALSARTAN 24mg/26mg TAB PO SCH (21:05)
[2023-12-24] MEDS: ATORVASTATIN 20 MG TAB PO SCH (21:06)
[2023-12-24] MEDS: HYDROcodone-ACET 10/325MG TAB PO PRN (21:07)
[2023-12-24] MEDS: MONTELUKAST SODIUM 10 MG TAB PO SCH (21:07)
[2023-12-25] VITALS (18 sets, daily range): BP systolic 103–142; BP diastolic 60–87; PULSE 66–85; RESP 18–20; TEMP 97.3–98.2; O2SAT 92–100
[2023-12-25] MEDS: EMPAGLIFLOZIN 10 MG TAB PO SCH (10:30)
[2023-12-25] MEDS: AZITHROMYCIN 500MG/ 250ML 250 ML IV SCH (10:30)
[2023-12-25] MEDS: LIDOCAINE 5% TOPICAL PATCH TOP SCH (10:33)
[2023-12-25] MEDS ORDERED: IPR002IS NEB (14:42)
[2023-12-25] MEDS ORDERED: FURO20TA3 PO (14:42)
[2023-12-25] MEDS ORDERED: SEMA4INJ SC (14:42)
[2023-12-26] VITALS (16 sets, daily range): BP systolic 103–135; BP diastolic 57–77; PULSE 61–82; RESP 16–19; TEMP 36.4; O2SAT 91–99
[2023-12-26] MEDS ORDERED: METH4PAK PO (12:11)
[2023-12-26] MEDS ORDERED: ALBU108A5 PO (12:11)
[2023-12-26] MEDS ORDERED: SACU1TAB PO (12:11)
[2023-12-26] MEDS ORDERED: EMPA1TAB PO (12:11)
[2023-12-26] MEDS ORDERED: DOXY1CAP57 PO (12:11)
== END 2023-12-26 17:40 | disposition home or self-care (01) | DRG 140 ==
LOC: ER 18:48 → OVERFLOW 21:37 → WEST WING 23:59
PROVIDERS: ADMIT Nurse Practitioner; ATTEND Internal Medicine Geriatric Medicine
DX: J44.1 Chronic obstructive pulmonary disease with (acute) exacerbation (principal); J96.21 Acute and chronic respiratory failure with hypoxia; I50.9 Heart failure, unspecified; I11.0 Hypertensive heart disease with heart failure; Z99.81 Dependence on supplemental oxygen; E11.9 Type 2 diabetes mellitus without complications; F17.200 Nicotine dependence, unspecified, uncomplicated; G89.29 Other chronic pain; M54.50 Low back pain, unspecified; K21.9 Gastro-esophageal reflux disease without esophagitis; Z83.3 Family history of diabetes mellitus; Z88.2 Allergy status to sulfonamides; Z91.013 Allergy to seafood; Z79.899 Other long term (current) drug therapy; Z82.5 Family history of asthma and other chronic lower respiratory diseases; Z82.49 Family history of ischemic heart disease and other diseases of the circulatory system
CPT/HCPCS: 36415; 36600; 71045; 80048; 82805; 82962; 83880; 84484; 85025; 87081; 93005; 93306; 94640; 96374; 99291; G0378; J1815

== ENCOUNTER 2024-01-18 18:42 | Inpatient (IN) | payer MEDICAID ==
[~2024-01-18] VITALS: Ht 193 cm; Wt 100.0 kg
[~2024-01-18 18:42] MED LIST changes: -AZITTAB2 PO; +BECL80AE11 IN; -BUDE1AER4 IN; +DOXY1CAP57 PO; -FUR20T PO; +FURO20TA3 PO; -HYDR-4795 PO; +HYDR-4798 PO; +METH4PAK PO; -POTA-36 PO; -PRED10TA PO; -PRED20TA2 PO; +SACU1TAB PO
[2024-01-18 19:00] VITALS: PULSE 87; RESP 33; O2SAT 95
[2024-01-18 19:02] VITALS: O2SAT 97
[2024-01-18] MEDS: ALBUTEROL SULF 2.5 MG/0.5ML(0.5%) NEB SOLN NEB ONE (19:03)
[2024-01-18] MEDS: ALBUTEROL SULF 2.5 MG/0.5ML(0.5%) NEB SOLN ONE (19:03)
[2024-01-18 19:25] LABS: Basophils # (auto) 0.1 10 ^3/uL (0-0.2); Basophils % (auto) 0.9 % (0.0-2.0); Eosinophils # (auto) 0.2 10 ^3/uL (0-0.8); Eosinophils % (auto) 2.9 % (0.0-7.0); Hematocrit 46.3 % (41.0-53.0); Hemoglobin 15.9 g/dL (13.5-17.5); Lymphocytes # (auto) 2.1 10 ^3/uL (0.4-5.4); Lymphocytes % (auto) 29.4 % (10.0-50.0); Mean Corpuscular Hemoglobin 29.4 pg (28.0-32.0); Mean Corpuscular Hgb Conc. 34.4 g/dL (32.0-36.0); Mean Corpuscular Volume 85.3 fL (80.0-100.0); Monocytes # (auto) 0.6 10 ^3/uL (0-1.3); Monocytes % (auto) 8.9 % (0.0-12.0); Neutrophils # (auto) 4.2 10 ^3/uL (1.6-8.6); Neutrophils % (auto) 57.9 % (37.0-80.0); Nucleated Red Blood Cells % 2.7 %; Red Blood Cells 5.42 10^6/uL (4.5-5.90); Red Cell Distribution Width 14.6 % (11.8-14.3); White Blood Cell 7.2 10^3/uL (4.4-10.8)
[2024-01-18] MEDS: DexAMETHasone SOD PHOS 10MG/1ML VIAL INJ IV ONE (19:29)
[2024-01-18] MEDS: AZITHROMYCIN 250 MG TAB PO ONE (19:30)
[2024-01-18 19:39] LABS: Chloride 110 mmol/L (98-107); Sodium 140 mmol/L (136-145)
[2024-01-18 19:40] LABS: Anion Gap 6 (5-15); Calcium 9.3 mg/dL (8.7-10.4); Carbon Dioxide 24 mmol/L (20-30)
[2024-01-18 19:45] LABS: BUN/Creatinine Ratio 14.9 (10.0-20.0); Blood Urea Nitrogen 14 mg/dL (9-23); Glucose 101 mg/dL (74-106)
[2024-01-18] MEDS ORDERED: ACETAMINOPHEN 325 MG TAB PO PRN (20:30)
[2024-01-18] MEDS ORDERED: ONDANSETRON HCL 4 MG/2 ML VIAL IV PRN (20:30)
[2024-01-18] MEDS ORDERED: DOCUSATE SOD 100 MG CAP PO PRN (20:30)
[2024-01-18] MEDS ORDERED: ALBUTEROL SULF 2.5 MG/0.5ML(0.5%) NEB SOLN NEB SCH ×2 (20:30)
[2024-01-18 20:32] VITALS: BP 122/78; PULSE 88; RESP 22; O2SAT 97
[2024-01-18] MEDS: ACETAMINOPHEN 325 MG TAB PO ONE (20:32)
[2024-01-18] MEDS: METOCLOPRAMIDE HCL 5MG/ml INJ 2ml VIAL IV ONE (20:33)
[2024-01-18] MEDS: KETOROLAC TROMETH 30 MG/ML 1ML VIAL IV ONE (20:34)
[2024-01-18] MEDS: SACUBITRIL-VALSARTAN 24mg/26mg TAB PO SCH (22:12)
[2024-01-18] MEDS: GABAPENTIN 300 MG CAP PO SCH (22:13)
[2024-01-18] MEDS: CARVEDILOL 3.125 MG TAB PO SCH (22:14)
[2024-01-18 22:53] LABS: COVID19 ANTIGEN SOFIA FIA NEGATIVE (NEGATIVE)
[2024-01-18 23:40] VITALS: PULSE 67; RESP 20; O2SAT 95
[2024-01-18] MEDS: ALBUTEROL SULF 2.5 MG/0.5ML(0.5%) NEB SOLN NEB SCH (23:42)
[2024-01-18 23:47] VITALS: PULSE 63; RESP 20; O2SAT 98
[2024-01-19] VITALS (11 sets, daily range): BP systolic 99–111; BP diastolic 51–81; PULSE 62–76; RESP 16–18; TEMP 97.8–98.7; O2SAT 94–97
[2024-01-19] MEDS: EMPAGLIFLOZIN 10 MG TAB PO SCH (06:27)
[2024-01-19] MEDS: BUDESONIDE (INHALATION) 0.5 MG/2 ML NEB HHN SCH (06:34)
[2024-01-19] MEDS: ATORVASTATIN 20 MG TAB PO SCH (09:55)
[2024-01-19] MEDS: MONTELUKAST SODIUM 10 MG TAB PO SCH (09:55)
[2024-01-19] MEDS: predniSONE 20 MG TAB PO SCH (09:55)
[2024-01-19] MEDS: FUROSEMIDE 20 MG TAB PO SCH (09:56)
[2024-01-19] MEDS: ENOXAPARIN SOD 40 MG/0.4 ML SYRINGE SC SCH (09:56)
[2024-01-19] MEDS: PANTOPRAZOLE 40 MG/10 ML VIAL INJ IV SCH (09:59)
[2024-01-19] MEDS: AZITHROMYCIN 250 MG TAB PO ONE (14:12)
[2024-01-19] MEDS: HYDROcodone-ACET 10/325MG TAB PO PRN (14:16)
[2024-01-19] MEDS: MELATONIN 5 MG TAB PO ONE (22:07)
[2024-01-20] VITALS (11 sets, daily range): BP systolic 96–104; BP diastolic 51–64; PULSE 53–78; RESP 14–18; TEMP 97.8–98.2; O2SAT 93–100
[2024-01-20] MEDS: AZITHROMYCIN 250 MG TAB PO SCH (09:51)
[2024-01-20] MEDS: predniSONE 20 MG TAB PO SCH (09:52)
[2024-01-20] MEDS ORDERED: ALBU108A5 IN (12:47)
[2024-01-20] MEDS ORDERED: METH4PAK PO (12:47)
[2024-01-20] MEDS ORDERED: IPR002IS HHN (12:47)
[2024-01-20] MEDS ORDERED: AZITTAB PO (12:47)
== END 2024-01-20 14:45 | disposition home or self-care (01) | DRG 140 ==
LOC: ER 18:42 → OVERFLOW 20:21 → EAST 23:44
PROVIDERS: ADMIT Internal Medicine; ATTEND Internal Medicine
DX: J44.1 Chronic obstructive pulmonary disease with (acute) exacerbation (principal); J96.21 Acute and chronic respiratory failure with hypoxia; I50.9 Heart failure, unspecified; I11.0 Hypertensive heart disease with heart failure; E11.9 Type 2 diabetes mellitus without complications; Z20.822 Contact with and (suspected) exposure to COVID-19; J45.901 Unspecified asthma with (acute) exacerbation; K21.9 Gastro-esophageal reflux disease without esophagitis; G89.29 Other chronic pain; I25.10 Atherosclerotic heart disease of native coronary artery without angina pectoris; Z83.3 Family history of diabetes mellitus; Z82.49 Family history of ischemic heart disease and other diseases of the circulatory system; Z99.81 Dependence on supplemental oxygen
CPT/HCPCS: 36415; 71045; 80048; 84484; 85025; 87081; 87426; 94640; 96374; 96375; G0378; J1100; J1885; J2470

== ENCOUNTER 2024-06-13 08:41 | Inpatient (IN) | payer MEDICAID ==
[~2024-06-13] VITALS: Ht 182.9 cm; Wt 109.2 kg
[~2024-06-13 08:41] MED LIST changes: +ALBU108A5 IN; +AZITTAB PO; -DOXY1CAP57 PO; +IPR002IS HHN
--- NOTE | 2024-06-13 09:00 | ECG ---
[facility] Test Date: 2024-06-13 Test Time: 08:56:44 Pat Name: ANGÉLICA GR Department: ER Room: Gender: M Communications Billing Analyst: GV : [id number] Requested By: MOHAN JAMA Order Number: [id number] Reading MD: Polo Hopper Measurements Intervals Watkins Rate: 100 P: 71 LA: 135 QRS: -71 QRSD: 116 T: 57 QT: 353 QTc: 456 Interpretive Statements Sinus tachycardia Right atrial enlargement Incomplete RBBB and LAFB Baseline wander in lead(s) V1,V3 Electronically Signed On 06-13-2024 12:54:00 PST by Polo Hopper Please click the below link to view image of tracing.
[2024-06-13 09:10] VITALS: PULSE 98; RESP 20; O2SAT 96
[2024-06-13 09:28] LABS: Urine Bacteria None Seen /hpf (None Seen)
[2024-06-13] MEDS: methylPREDNISolone SOD SUCC 125 MG/2 ML VL IV ONE (09:34)
[2024-06-13] MEDS: IPRATROPIUM BROM 0.5 MG/2.5ML INH SOL NEB ONE ×2 (09:35→13:36)
[2024-06-13] MEDS: ALBUTEROL SULF 2.5 MG/0.5ML(0.5%) NEB SOLN NEB ONE ×2 (09:36→13:36)
[2024-06-13 09:38] LABS: Lymphocytes # (auto) 0.9 10 ^3/uL (0.4-5.4); Monocytes # (auto) 0.7 10 ^3/uL (0-1.3); White Blood Cell 13.3 10^3/uL (4.4-10.8)
[2024-06-13 09:39] LABS: Urine Blood Negative /uL (Negative); Urine Clarity Clear (Clear); Urine Color Yellow (Yellow); Urine Protein, UAD Negative (Negative); Urine Specific Gravity 1.041 (1.001-1.035); Urine Urobilinogen Normal (Negative); Urine WBC 1 /hpf (0 - 3)
[2024-06-13 09:40] LABS: Basophils # (auto) 0 10 ^3/uL (0-0.2); Basophils % (auto) 0.3 % (0.0-2.0); Eosinophils # (auto) 0.2 10 ^3/uL (0-0.8); Eosinophils % (auto) 1.3 % (0.0-7.0); Hematocrit 55.7 % (41.0-53.0); Hemoglobin 18.9 g/dL (13.5-17.5); Mean Corpuscular Volume 88.5 fL (80.0-100.0); Monocytes % (auto) 5.3 % (0.0-12.0); Neutrophils # (auto) 11.4 10 ^3/uL (1.6-8.6); Neutrophils % (auto) 86.1 % (37.0-80.0); Platelet Count (auto) 239 10^3/uL (140-450); Red Cell Distribution Width 14.4 % (11.8-14.3)
[2024-06-13 09:46] LABS: Potassium 4.9 mmol/L (3.5-5.1); Sodium 140 mmol/L (136-145)
[2024-06-13 09:47] LABS: Anion Gap 7 (5-15); Calcium 10.2 mg/dL (8.7-10.4); Carbon Dioxide 25 mmol/L (20-31); Chloride 108 mmol/L (98-107)
[2024-06-13] MEDS: ONDANSETRON HCL 4 MG/2 ML VIAL IV ONE (09:50)
[2024-06-13 09:52] LABS: BUN/Creatinine Ratio 12.6 (10.0-20.0); Blood Urea Nitrogen 13 mg/dL (9-23)
--- NOTE | 2024-06-13 09:53 | ED.PDOC ---
SOB-HPI HPI Comments 54 y.o male with PMH of COPD, PNA, bronchitis, emphysema, asthma CHF, pre-DM, and HTN, presents to the ED for a chief complaint of SOB associated with a dry cough that started 2 days ago. Patient reports using 3 liters of oxygen at home during the night, recently ran out. Patient also has been using breathing treatments at home with no relief. Patient denies any chest pain, fever, chills or leg swelling. Patient does also mention new onset nausea, vomiting and diarrhea x 1 day s/p family contact that was diagnosed with a viral gastroenteritis. No abdominal pain reported. Patient does use tobacco. Chief Complaint: Shortness of Breath Time Seen by MD: 09:27 Primary Care Provider: DARIELA Sanchez notes: Nurses Notes, Medications, Allergies Information Source: Patient Mode of Arrival: Ambulatory Severity: Moderate Timing: Days (2) Duration: Since onset Context: At Rest PE Risk Factors: None History of: Asthma, COPD, CHF Modifying Factors: Nothing Associated Signs and Symptoms: Cough If cough with SOB: Productive Past Medical History PAST MEDICAL HISTORY: Arthritis, Asthma, CHF, COPD, DM, GERD Surgical History: Hernia Repair Family History Family History: Family hx of DM, Family hx of heart anel Social History Smoker: Non-Smoker, Quit Greater Than 1 Year, Cigarettes Alcohol: Denies ETOH Use Drugs: Denies Drug Use Lives In: Home Constitutional: denies: chills, diaphoresis, fatigue, fever, malaise, sweats, weakness, others EENTM: denies: blurred vision, double vision, ear bleeding, ear discharge, ear drainage, ear pain, ear ringing, eye pain, eye redness, hearing loss, mouth pain, mouth swelling, nasal discharge, nose bleeding, nose congestion, nose pain, photophobia, tearing, throat pain, throat swelling, voice changes, others Respiratory: reports: cough, SOB at rest, shortness of breath, SOB with excertion; denies: hemoptysis, orthopnea, stridor, wheezing, others Cardiovascular: denies: chest pain, dizzy spells, diaphoresis, Dyspnea on exertion, edema, irregular heart beat, left arm pain, lightheadedness, palpitations, PND, syncope, others Gastrointestinal: reports: diarrhea, nausea, vomiting; denies: abdomen distended, abdominal pain, blood streaked bowels, constipated, dysphagia, difficulty swallowing, hematemesis, melena, poor appetite, poor fluid intake, rectal bleeding, rectal pain, others Genitourinary: denies: burning, dysuria, flank pain, frequency, hematuria, incontinence, penile discharge, penile sore, pain, testicle pain, testicle swelling, urgency, others Neurological: denies: dizziness, fainting, headache, left sided numbness, left sided weakness, numbness, paresthesia, pre-existing deficit, right sided numbness, right sided weakness, seizure, speech problems, tingling, tremors, weakness, others Musculoskeletal: denies: back pain, gout, joint pain, joint swelling, muscle pain, muscle stiffness, neck pain, others Integumetry: denies: bruises, change in color, change in hair/nails, dryness, laceration, lesions, lumps, rash, wounds, others Allergic/Immunocompromised: denies: Difficulty Healing, Frequent Infections, Hives, Itching, others Hematologic/Lymphatic: denies: anemia, blood clots, easy bleeding, easy bruising, swollen glands, others Endocrine: denies: excessive hunger, excessive sweating, excessive thirst, excessive urination, flushing, intolerance to cold, intolerance to heat, unexplained weight gain, unexplained weight loss, others Psychiatric: denies: anxiety, bipolar disorder, depression, hopeless, panic disorder, schizophrenia, sleepless, suicidal, others All Other Systems: Reviewed and Negative Physical Exam General Appearance: Mild Distress HEENT: Normal ENT Inspection Neck: Full Range of Motion, Normal Inspection Respiratory: No Accessory Muscle Use, Respiratory Distress (mild), Rhonchi, Wheezing Cardiovascular: No Edema, No JVD, Regular Rate/Rhythm Breast Exam: Deferred Gastrointestinal: Non Tender, Soft Genitalia: Deferred Pelvic: Deferred Rectal: Deferred Extremities: Normal inspection, Normal range of motion, Non-tender, No pedal edema Neurologic: Alert (Oriented x4), Normal Affect, Normal Mood, Other (Ambulatory without difficulty. No gross focal deficit.) Cerebellar Function: NOT DONE Reflexes: NOT DONE Skin: Dry, Normal Color, Warm Lymphatic: NOT DONE EKG EKG : Comments Sinus tach, rate 100, normal CA and QRS intervals, QTC 456, normal axis, i ncomplete right bundle branch block and left anterior fascicular block, nonspecific T changes. Was a procedure done? Was a procedure done?: No Differential Dx Differential Diagnosis: Asthma, CHF, COPD, Dysrhythmia, Hyperventilation, Pneumonia, Respiratory Distress, URI Comments Electrolyte imbalance, gastroenteritis, dehydration, among others X-Ray, Labs, Meds, VS Vital Signs Date Time Temp Pulse Resp B/P (MAP) Pulse Ox O2 Delivery O2 Flow Rate FiO2 06/13/24 10:59 98.7 87 15 131/71 (91) 96 98.7 06/13/24 10:58 87 15 131/71 06/13/24 10:36 82 16 130/76 06/13/24 09:39 19 94 Nasal Cannula* 2 28 06/13/24 09:10 98 20 96 Nasal Cannula* 2 28 06/13/24 08:56 100 06/13/24 08:54 97.6 96 18 135/84 (101) 95 Lab Test 06/13/24 10:21 06/13/24 09:56 06/13/24 09:22 06/13/24 08:53 Range/Units Troponin I High Sensitivity < 3 L < 3 L </=54 ng/L Influenza Type A Antigen Negative Negative Influenza Type B Antigen Negative Negative SARS-CoV-2 Antigen (Rapid) Negative NEGATIVE White Blood Count 13.3 H 4.4-10.8 10^3/uL Red Blood Count 6.30 H 4.5-5.90 10^6/uL Hemoglobin 18.9 H 13.5-17.5 g/dL Hematocrit 55.7 H 41.0-53.0 % Mean Corpuscular Volume 88.5 80.0-100.0 fL Mean Corpuscular Hemoglobin 30.0 28.0-32.0 pg Mean Corpuscular Hemoglobin Concent 34.0 32.0-36.0 g/dL Red Cell Distribution Width 14.4 H 11.8-14.3 % Platelet Count 239 140-450 10^3/uL Mean Platelet Volume 7.9 6.9-10.8 fL Neutrophils (%) (Auto) 86.1 H 37.0-80.0 % Lymphocytes (%) (Auto) 7.0 L 10.0-50.0 % Monocytes (%) (Auto) 5.3 0.0-12.0 % Eosinophils (%) (Auto) 1.3 0.0-7.0 % Basophils (%) (Auto) 0.3 0.0-2.0 % Neutrophils # (Auto) 11.4 H 1.6-8.6 10 ^3/uL Lymphocytes # (Auto) 0.9 0.4-5.4 10 ^3/uL Monocytes # (Auto) 0.7 0-1.3 10 ^3/uL Eosinophils # (Auto) 0.2 0-0.8 10 ^3/uL Basophils # (Auto) 0 0-0.2 10 ^3/uL Nucleated Red Blood Cells 0.0 % Sodium Level 140 136-145 mmol/L Potassium Level 4.9 3.5-5.1 mmol/L Chloride Level 108 H 98-107 mmol/L Carbon Dioxide Level 25 20-31 mmol/L Anion Gap 7 5-15 Blood Urea Nitrogen 13 9-23 mg/dL Creatinine 1.03 0.700-1.30 mg/dL Glomerular Filtration Rate Calc 87 >90 mL/min BUN/Creatinine Ratio 12.6 10.0-20.0 Serum Glucose 157 H 74-106 mg/dL Calcium Level 10.2 8.7-10.4 mg/dL B-Type Natriuretic Peptide 9.67 0-100 pg/mL Lipase 40 12-53 U/L Urine Color Yellow Yellow Urine Clarity Clear Clear Urine pH 5.0 5.0-9.0 Urine Specific [place] 1.041 H 1.001-1.035 Urine Protein Negative Negative Urine Ketones Negative Negative Urine Blood Negative Negative /uL Urine Nitrite Negative Negative Urine Bilirubin Negative Negative Urine Urobilinogen Normal Negative mg/dL Urine Leukocyte Esterase Negative Negative /uL Urine RBC None seen 0 - 3 /hpf Urine WBC 1 0 - 3 /hpf Urine Squamous Epithelial Cells Few <5 /hpf Urine Bacteria None seen None Seen /hpf Urine Glucose 4+ H Normal mg/dL Current Medications Medications (Trade) Dose Ordered Sig/Santy Route Start Time Stop Time Status Last Admin Albuterol (Ventolin Medneb) 5 mg ONCE ONCE NEB 06/13/24 09:15 06/13/24 09:29 DC 06/13/24 09:36 Ipratropium [place] (Atrovent Medneb) 0.5 mg ONCE ONCE NEB 06/13/24 09:15 06/13/24 09:29 DC 06/13/24 09:35 Methylprednisolone Sodium Succinate (Solu Medrol) 125 mg ONCE ONCE IV 06/13/24 09:15 06/13/24 09:29 DC 06/13/24 09:34 Ondansetron HCl (Zofran) 4 mg ONCE ONCE IV 06/13/24 09:45 06/13/24 09:46 DC 06/13/24 09:50 Sodium Chloride 1,000 ml @ 1,000 mls/hr Q1H ONCE IV 06/13/24 09:45 06/13/24 10:44 DC 06/13/24 10:05 Famotidine (Pepcid Injection) 20 mg ONCE ONCE IV 06/13/24 09:45 06/13/24 09:46 DC 06/13/24 10:01 Morphine Sulfate 4 mg ONCE ONCE IV 06/13/24 10:30 06/13/24 10:31 DC 06/13/24 10:36 [place] [id number] Ph: [phone] DIAGNOSTIC IMAGING Diagnostic Imaging Report : [id number] Signed PATIENT: ANGÉLICA GR ACCT: [id number] UNIT: [id number] : 1970 LOC: ER ROOM / BED: / AGE / SEX: 54 / M ADM STATUS: REG ER SERVICE 4 ORDERING PHYSICIAN: MOHAN CANO MD PROCEDURE(s): CXRP - CHEST PORTABLE REASON: sob ORDER NUMBER(s): [id number], ACCESSION NUMBER(s): [id number] CHEST RADIOGRAPH Indication: sob Technique: Single frontal view of the chest was obtained Comparison: XY CHEST PORTABLE on DOS: 01/18/24, XY CHEST PORTABLE on DOS: 12/23/23 FINDINGS: Lines and Tubes: None Lungs: No focal consolidation. Pleura: No effusion. No pneumothorax. Cardiomediastinal contours: Unremarkable Bones: No acute osseous abnormality. IMPRESSION: 1. No radiographic evidence acute cardiopulmonary disease. HS:Y ATED BY: KELLIE AMBROCIO DO DICTATED DATE/TIME: 06/13/24 100 SIGNED BY: KELLIE AMBROCIO DO SIGNED DATE/TIME: 06/13/24 100 CC: X-Ray, Labs, Meds, VS Comment 54-year-old male with a history of COPD on 3 L O2 at night, PNA, bronchitis, asthma, CHF, pre-DM, and HTN complaining of difficulty breathing, cough, nausea, vomiting and diarrhea Vitals remarkable for heart rate 100, oxygen saturation 94% on 2 L nasal cannula Exam remarkable for bilateral rhonchi/wheezes and mild respiratory distress Rhythm strip independently interpreted by me: Sinus tach, rate 100, no ectopy. Chest x-ray unremarkable CBC remarkable for WBC 13.3, hemoglobin 18.9, hematocrit 55.7, basic metabolic panel, BNP, troponin, lipase unremarkable for any abnormality of acute significance UA 4+ glucose Patient treated with the following in the ED: Albuterol 5 mg/Atrovent 0.5 mg nebulized, Solu-Medrol 125 mg IV, 1 L 0.9 normal saline IV bolus, morphine 4 mg IV, Zofran 4 mg IV, Pepcid 20 mg IV On re-evaluation, nausea has improved, vitals were stable, patient was not in respiratory distress. Plan is to admit the patient for respiratory support as needed. Time of 1ST Reevaluation: 10:30 Reevaluation 1ST: Unchanged Patient Education/Counseling: Diagnosis, Treatment, Prognosis Family Education/Counseling: No Family Present Departure 1 Departure Time of Disposition: 12:06 Impression: Primary Impression: [id number] respiratory failure Qualified Codes: J96.20 - Acute and chronic respiratory failure, unspecified whether with hypoxia or hypercapnia Additional Impressions: COPD with exacerbation Asthma with exacerbation Qualified Codes: J45.901 - Unspecified asthma with (acute) exacerbation Nausea, vomiting, and diarrhea Disposition: ADMITTED INPATIENT Admit to: Tele Condition: Guarded Critical Care Note Critical Care Time?: No Stability Stability form required: No Heart Score Heart Score: Heart Score Response (Comments) Value History N/A 0 EKG N/A 0 Age N/A 0 Risk Factors N/A 0 Troponin N/A 0 Total 0 I personally scribed for MOHAN CANO MD ([facility] on 06/13/24 at 09:53. Electronically submitted by Delia Her ([facility]). I personally scribed for MOHAN CANO MD ([facility]) on 06/13/24 at 10:52. Electronically submitted by Delia Her ([facility]). MOHAN CANO MD Jun 13, 2024 09:53
[2024-06-13 09:54] LABS: Glucose 157 mg/dL (74-106)
[2024-06-13] MEDS: FAMOTIDINE (10MG/ML) 2ML VL IV ONE (10:01)
[2024-06-13] MEDS: SODIUM CHLORIDE 0.9% 1,000 ML IV ONE (10:05)
--- NOTE | 2024-06-13 10:11 | DVH ---
CHEST RADIOGRAPH Indication: sob Technique: Single frontal view of the chest was obtained Comparison: XY CHEST PORTABLE on DOS: 01/18/24, XY CHEST PORTABLE on DOS: 12/23/23 FINDINGS: Lines and Tubes: None Lungs: No focal consolidation. Pleura: No effusion. No pneumothorax. Cardiomediastinal contours: Unremarkable Bones: No acute osseous abnormality. IMPRESSION: 1. No radiographic evidence acute cardiopulmonary disease. HS:Y
[2024-06-13] MEDS: MORPHINE SULFATE 4 MG/ML SYR/VIAL IV ONE (10:36)
[2024-06-13 11:04] LABS: Rapid Influenza A Negative (Negative); Rapid Influenza B Negative (Negative)
[2024-06-13 11:05] LABS: COVID19 ANTIGEN SOFIA FIA NEGATIVE (NEGATIVE)
--- NOTE | 2024-06-13 15:28 | DVHHP2 ---
History of Present Illness Reason for Visit: Shortness of breaths History of Present Illness 54-year-old obese patient with a past medical history COPD, pneumonia, bronchitis multiple times and emphysema comes to the ED for evaluation patient also has a history of CHF states that he has been short of breath for the past few days normally patient is on oxygen at home typically he uses about 3 L of oxygen only at nighttime but states that he has been constantly using oxygen at home and has not been feeling any better plan at this point in time is to admit as per ED recommendations Cardiovascular: CAD, CHF, HTN Pulmonary: COPD Endocrine: Diabetes Review of Systems Constitutional: Yes: Weakness; No: Fever, Chills, Sweats, Malaise, Other Eyes: No: Pain, Vision change, Conjunctivae inflammation, Eyelid inflammation, Other, Redness ENT: No: Ear pain, Ear discharge, Nose pain, Nose discharge, Nose congestion, Mouth pain, Mouth swelling, Throat pain, Throat swelling, Other Respiratory: Cough, Shortness of breath; No: Dry, SOB with excertion, Wheezing, Hemoptysis, Pleuritic Pain, Sputum, Wheezing, Other Cardiovascular: Chest Pain, Palpitations; No: Orthopnea, Paroxysmal Noc. Dyspnea, Edema, Lt Headedness, Other Gastrointestinal: Nausea, Vomiting; No: Abdominal Pain, Diarrhea, Constipation, Melena, Hematochezia, Other Genitourinary: No Dysuria, No Frequency, No Incontinence, No Hematuria, No Retention, No Other Musculoskeletal: No: other, neck pain, shoulder pain, arm pain, back pain, hand pain, leg pain, foot pain Skin: No: Rash, Lesions, Jaundice, Bruising, Other Neurological: No: Weakness, Numbness, Incoordination, Change in speech, Confusion, Seizures, Other Allergies: Coded Allergies: Sulfa Drugs (Verified Allergy, Unknown, 09/25/22) Uncoded Allergies: shell fish (Adverse Reaction, Mild, 05/08/23) bloody nose Medications Current Medications Medications Dose Ordered Sig/Santy Route Start Time Stop Time Status Last Admin Dose Admin Methylprednisolone Sodium Succinate 40 mg BID IV 06/13/24 22:00 UNV Albuterol 2.5 mg Q4HR PRN NEB 06/13/24 15:30 UNV Ipratropium [place] 0.5 mg Q4HPRN PRN NEB 06/13/24 15:30 UNV Ceftriaxone Sodium 50 ml @ 100 mls/hr DAILY IV 06/13/24 15:30 UNV Azithromycin 500 mg DAILY PO 06/13/24 15:30 UNV Carvedilol 3.125 mg BID PO 06/13/24 22:00 UNV Empaglifozin 10 mg QAM PO 06/14/24 07:00 UNV Acetaminophen/ Hydrocodone Bitart 1 tab TID PO 06/13/24 22:00 UNV Sacubitril/ Valsartan 1 tab BID PO 06/13/24 22:00 UNV Patient Own Medication 1 tab DAILY PO 06/14/24 10:00 UNV Exam Vital Signs Vital Signs Date Time Temp Pulse Resp B/P (MAP) Pulse Ox O2 Delivery O2 Flow Rate FiO2 06/13/24 13:36 18 94 Nasal Cannula* 2 28 06/13/24 13:03 84 06/13/24 13:03 120/78 (92) 06/13/24 10:59 98.7 98.7 General Appearance: Alert, Oriented X3, Cooperative HEENT: Atraumatic, PERRLA, EOMI Respiratory: Clear to auscultation, Normal air movement Cardiovascular: Regular rate, Normal S1, Normal S2 Abdominal: Normal bowel sounds, Soft, No tenderness Extremities: No clubbing, No cyanosis Skin: No rashes, No breakdown Neuro: Normal speech Psych/Mental Status: Mood NL Labs/Xrays Labs Test 06/13/24 12:11 06/13/24 09:56 06/13/24 09:22 06/13/24 08:53 Range/Units Troponin I High Sensitivity < 3 L </=54 ng/L Influenza Type A Antigen Negative Negative Influenza Type B Antigen Negative Negative SARS-CoV-2 Antigen (Rapid) Negative NEGATIVE White Blood Count 13.3 H 4.4-10.8 10^3/uL Red Blood Count 6.30 H 4.5-5.90 10^6/uL Hemoglobin 18.9 H 13.5-17.5 g/dL Hematocrit 55.7 H 41.0-53.0 % Mean Corpuscular Volume 88.5 80.0-100.0 fL Mean Corpuscular Hemoglobin 30.0 28.0-32.0 pg Mean Corpuscular Hemoglobin Concent 34.0 32.0-36.0 g/dL Red Cell Distribution Width 14.4 H 11.8-14.3 % Platelet Count 239 140-450 10^3/uL Mean Platelet Volume 7.9 6.9-10.8 fL Neutrophils (%) (Auto) 86.1 H 37.0-80.0 % Lymphocytes (%) (Auto) 7.0 L 10.0-50.0 % Monocytes (%) (Auto) 5.3 0.0-12.0 % Eosinophils (%) (Auto) 1.3 0.0-7.0 % Basophils (%) (Auto) 0.3 0.0-2.0 % Neutrophils # (Auto) 11.4 H 1.6-8.6 10 ^3/uL Lymphocytes # (Auto) 0.9 0.4-5.4 10 ^3/uL Monocytes # (Auto) 0.7 0-1.3 10 ^3/uL Eosinophils # (Auto) 0.2 0-0.8 10 ^3/uL Basophils # (Auto) 0 0-0.2 10 ^3/uL Nucleated Red Blood Cells 0.0 % Sodium Level 140 136-145 mmol/L Potassium Level 4.9 3.5-5.1 mmol/L Chloride Level 108 H 98-107 mmol/L Carbon Dioxide Level 25 20-31 mmol/L Anion Gap 7 5-15 Blood Urea Nitrogen 13 9-23 mg/dL Creatinine 1.03 0.700-1.30 mg/dL Glomerular Filtration Rate Calc 87 >90 mL/min BUN/Creatinine Ratio 12.6 10.0-20.0 Serum Glucose 157 H 74-106 mg/dL Hemoglobin A1c 6.4 H <5.7 % A1C Calcium Level 10.2 8.7-10.4 mg/dL B-Type Natriuretic Peptide 9.67 0-100 pg/mL Lipase 40 12-53 U/L Urine Color Yellow Yellow Urine Clarity Clear Clear Urine pH 5.0 5.0-9.0 Urine Specific [place] 1.041 H 1.001-1.035 Urine Protein Negative Negative Urine Ketones Negative Negative Urine Blood Negative Negative /uL Urine Nitrite Negative Negative Urine Bilirubin Negative Negative Urine Urobilinogen Normal Negative mg/dL Urine Leukocyte Esterase Negative Negative /uL Urine RBC None seen 0 - 3 /hpf Urine WBC 1 0 - 3 /hpf Urine Squamous Epithelial Cells Few <5 /hpf Urine Bacteria None seen None Seen /hpf Urine Glucose 4+ H Normal mg/dL Assessment/Plan Assessment/Plan Admit to [facility] Acute on chronic COPD exacerbation Patient with hypoxemia went off of oxygen O2 supplementation required P.r.n. breathing treatments Patient negative for COVID in the flu We will treat as community-acquired pneumonia IV antibiotics IV steroids b.i.d. Diabetes with uncontrolled glucose Glucose also noted in the urine Glucose currently above 160 We will do insulin sliding scale We will do an aggressive sliding scale as patient will receive steroids Plan discussed with: Patient My Orders Orders - BRODIE DESAI MD Procedure Category Date Status Time Methylprednisolone PHA 06/13/24 Logged Sod Succ (Solu Medrol 22:00 Albuterol Medneb PHA 06/13/24 Logged (Ventolin Medneb) 15:30 Ipratropium Medneb PHA 06/13/24 Logged (Atrovent Medneb) 15:30 Med Neb Initial RT 06/13/24 Logged Treatment 15:20 Ceftriaxone 1gm/50ml PHA 06/13/24 Logged D5w (Rocephin) 15:30 Azithromycin Tablet PHA 06/13/24 Logged (Zithromax Tablet) 15:30 Carvedilol Tablet PHA 06/13/24 Logged (Coreg Tablet) 22:00 Empagliflozin PHA 06/14/24 Logged (Jardiance) 07:00 Hydrocodone-Acet PHA 06/13/24 Logged 10/325mg Tab (Neeses 22:00 Sacubitril-Valsartan PHA 06/13/24 Logged (Entresto 24-26 Mg 22:00 (Nf) Rosuvastatin PHA 06/14/24 Logged Calcium 10:00 Problem List: (1) Hypertension (2) Diabetes (3) Acute exacerbation of COPD with asthma (4) Hypoxemia (5) Chronic pain syndrome Date of Service: Jun 13, 2024 Billing Provider: BRODIE DESAI MD Common Visit Codes: [id number] INP/OBS CARE (HIGH) BRODIE DESAI MD Jun 13, 2024 15:28
[2024-06-13 15:36] VITALS: BP 120/78; PULSE 97; RESP 19; TEMP 98.7; O2SAT 94
[2024-06-13] MEDS: cefTRIAXone 1GM/50ML D5W 50 ML IV SCH (16:22)
[2024-06-13] MEDS: HYDROcodone-ACET 10/325MG TAB PO ONE (16:24)
[2024-06-13] MEDS: AZITHROMYCIN 250 MG TAB PO SCH (16:24)
[2024-06-13 16:45] VITALS: BP 114/57; PULSE 83; RESP 18; TEMP 98; O2SAT 90
[2024-06-13] MEDS ORDERED: NITROGLYCERIN 0.4 MG SL TAB SL PRN (20:15)
[2024-06-13] MEDS ORDERED: MORPHINE SULFATE INJ 2 MG/ml SYRG IV PRN (20:15)
[2024-06-13 20:30] VITALS: O2SAT 92
[2024-06-13] MEDS: methylPREDNISolone SOD SUCC 40 MG/ML VL IV SCH (22:40)
[2024-06-13] MEDS: SACUBITRIL-VALSARTAN 24mg/26mg TAB PO SCH (22:54)
[2024-06-13] MEDS: ATORVASTATIN 20 MG TAB PO SCH (22:54)
[2024-06-13] MEDS: HYDROcodone-ACET 10/325MG TAB PO SCH (22:55)
[2024-06-13] MEDS: CARVEDILOL 3.125 MG TAB PO SCH (23:01)
[2024-06-13 23:52] VITALS: PULSE 81; RESP 19; O2SAT 96
[2024-06-14] VITALS (14 sets, daily range): BP systolic 100–119; BP diastolic 60–71; PULSE 61–85; RESP 16–20; TEMP 97.6–98.4; O2SAT 90–100
[2024-06-14] MEDS: ALBUTEROL SULF 2.5 MG/0.5ML(0.5%) NEB SOLN NEB PRN (00:36)
[2024-06-14] MEDS: IPRATROPIUM BROM 0.5 MG/2.5ML INH SOL NEB PRN (00:37)
[2024-06-14] MEDS: EMPAGLIFLOZIN 10 MG TAB PO SCH (06:52)
--- NOTE | 2024-06-14 14:29 | DVHPN2 ---
Subjective 54-year-old male came with nausea and vomiting and shortness to breath and wheezing He has COPD He is on home O2 at home He has chronic back pain and complains of lower back pain, he is on morphine at home Changes from previous H/P or p: Changes Eyes: No Pain, No Vision change, No Conjunctivae inflammation, No Eyelid inflammation, No Other, No Redness ENT: No Ear pain, No Ear discharge, No Nose pain, No Nose discharge, No Nose congestion, No Mouth pain, No Mouth swelling, No Throat pain, No Throat swelling, No Other Cardiovascular: Chest Pain, Palpitations; No Orthopnea, No Paroxysmal Noc. Dyspnea, No Edema, No Lt Headedness, No Other Respiratory: Cough; No Dry; Shortness of breath; No SOB with excertion, No Wheezing, No Hemoptysis, No Pleuritic Pain, No Sputum, No Other Gastrointestinal: Nausea, Vomiting; No Abdominal Pain, No Diarrhea, No Constipation, No Melena, No Hematochezia, No Other Genitourinary: No Dysuria, No Frequency, No Incontinence, No Hematuria, No Retention, No Other Musculoskeletal: No other, No neck pain, No shoulder pain, No arm pain, No back pain, No hand pain, No leg pain, No foot pain Skin: No Rash, No Lesions, No Jaundice, No Bruising, No Other Objective Vitals Vital Signs Date Time Temp Pulse Resp B/P (MAP) Pulse Ox O2 Delivery O2 Flow Rate FiO2 06/14/24 13:00 97.7 72 16 114/61 (78) 90 97.7 06/14/24 12:17 Nasal Cannula* 2 28 Intake/Output Intake and Output 06/14/24 07:00 Intake Total 1500 ml Balance 1500 ml Intake Oral 500 ml IV Total 1000 ml General Appearance: Alert, Oriented X3, Cooperative, moderate distress Lungs: Other (Diffuse wheezing) Cardiovascular: Regular rate, Normal S1, Normal S2 Abdomen: Normal bowel sounds, Soft, No tenderness Extremities: No edema Medications Current Medications Medications Dose Ordered Sig/Santy Route Start Time Stop Time Status Last Admin Dose Admin Methylprednisolone Sodium Succinate 40 mg BID IV 06/13/24 22:00 06/14/24 11:25 40 MG Albuterol 2.5 mg Q4HR PRN NEB 06/13/24 15:30 06/14/24 12:17 2.5 MG Ipratropium [place] 0.5 mg Q4HPRN PRN NEB 06/13/24 15:30 06/14/24 12:17 0.5 MG Ceftriaxone Sodium 50 ml @ 100 mls/hr DAILY IV 06/13/24 15:30 06/14/24 11:25 100 MLS/HR Azithromycin 500 mg DAILY PO 06/13/24 15:30 06/14/24 11:26 500 MG Carvedilol 3.125 mg BID PO 06/13/24 22:00 06/14/24 11:26 3.125 MG Empaglifozin 10 mg QAM PO 06/14/24 07:00 06/14/24 06:52 10 MG Acetaminophen/ Hydrocodone Bitart 1 tab TID PO 06/13/24 22:00 06/14/24 06:00 1 TAB Sacubitril/ Valsartan 1 tab BID PO 06/13/24 22:00 06/14/24 11:26 1 TAB Atorvastatin Calcium 20 mg HS PO 06/13/24 22:00 06/13/24 22:54 20 MG Nitroglycerin 0.4 mg Q5MINP PRN SL 06/13/24 20:15 Morphine Sulfate 2 mg Q30M PRN IV 06/13/24 20:15 Laboratory Results Laboratory Tests 06/13/24 09:22 Urinalysis Test 06/13/24 08:53 Urine Color Yellow (Yellow) Urine Clarity Clear (Clear) Urine pH 5.0 (5.0-9.0) Urine Specific [place] 1.041 (1.001-1.035) Urine Protein Negative (Negative) Urine Ketones Negative (Negative) Urine Blood Negative /uL (Negative) Urine Nitrite Negative (Negative) Urine Bilirubin Negative (Negative) Urine Urobilinogen Normal mg/dL (Negative) Urine Leukocyte Esterase Negative /uL (Negative) Urine RBC None seen /hpf (0 - 3) Urine WBC 1 /hpf (0 - 3) Urine Squamous Epithelial Cells Few /hpf (<5) Urine Bacteria None seen /hpf (None Seen) Urine Glucose 4+ mg/dL (Normal) H Assessment/Plan Assessment/Plan Acute hypoxic respiratory failure due to COPD exacerbation COPD exacerbation Chronic respiratory failure on home O2 Coronary artery disease COPD CHF Hypertension Chronic low back pain Plan Continue oxygen IV steroids Continue the home medications Med neb treatments IV Rocephin and Zithromax Plan discussed with: Patient My Orders Orders - MIDOU,WAHID MD Procedure Category Date Status Time Gabapentin Capsule PHA 06/14/24 Transmitted (Neurontin Capsule) 22:00 Date of Service: Jun 14, 2024 Billing Provider: MEHNAZ STEWART MD Common Visit Codes: [id number] INP/OBS CARE(HIGH) MEHNAZ STEWART MD Jun 14, 2024 14:29
[2024-06-14] MEDS: HYDROcodone-ACET 5/325MG TAB PO ONE (17:07)
[2024-06-14] MEDS: ALBUTEROL SULF 2.5 MG/0.5ML(0.5%) NEB SOLN NEB SCH (19:18)
[2024-06-14] MEDS: IPRATROPIUM BROM 0.5 MG/2.5ML INH SOL NEB SCH (19:18)
[2024-06-14] MEDS: GABAPENTIN 300 MG CAP PO SCH (21:11)
[2024-06-14] MEDS: MORPHINE SULF 15mg ER tab PO SCH (21:11)
[2024-06-15] VITALS (15 sets, daily range): BP systolic 107–116; BP diastolic 49–65; PULSE 61–80; RESP 16–20; TEMP 97.5–98.7; O2SAT 90–97
[2024-06-15 06:57] LABS: Basophils # (auto) 0 10 ^3/uL (0-0.2); Basophils % (auto) 0.1 % (0.0-2.0); Eosinophils # (auto) 0 10 ^3/uL (0-0.8); Hematocrit 48.3 % (41.0-53.0); Hemoglobin 16.4 g/dL (13.5-17.5); Lymphocytes # (auto) 1.1 10 ^3/uL (0.4-5.4); Mean Corpuscular Hgb Conc. 33.9 g/dL (32.0-36.0); Mean Corpuscular Volume 88.7 fL (80.0-100.0); Monocytes # (auto) 0.8 10 ^3/uL (0-1.3); Monocytes % (auto) 8.4 % (0.0-12.0); Neutrophils # (auto) 7.6 10 ^3/uL (1.6-8.6); Neutrophils % (auto) 79.5 % (37.0-80.0); Platelet Count (auto) 221 10^3/uL (140-450); Red Blood Cells 5.45 10^6/uL (4.5-5.90); Red Cell Distribution Width 14.3 % (11.8-14.3); White Blood Cell 9.6 10^3/uL (4.4-10.8)
[2024-06-15 07:00] LABS: Chloride 103 mmol/L (98-107); Potassium 4.1 mmol/L (3.5-5.1); Sodium 140 mmol/L (136-145)
[2024-06-15 07:01] LABS: Anion Gap 8 (5-15); Carbon Dioxide 29 mmol/L (20-31)
[2024-06-15 07:02] LABS: Calcium 9.8 mg/dL (8.7-10.4)
[2024-06-15 07:06] LABS: BUN/Creatinine Ratio 20.4 (10.0-20.0); Blood Urea Nitrogen 19 mg/dL (9-23)
[2024-06-15 07:07] LABS: Magnesium 2.1 mg/dL (1.6-2.6)
[2024-06-15 07:17] LABS: Glucose 158 mg/dL (74-106)
--- NOTE | 2024-06-15 13:20 | DVHPN2 ---
Subjective He is doing better Changes from previous H/P or p: Changes Eyes: No Pain, No Vision change, No Conjunctivae inflammation, No Eyelid inflammation, No Other, No Redness ENT: No Ear pain, No Ear discharge, No Nose pain, No Nose discharge, No Nose congestion, No Mouth pain, No Mouth swelling, No Throat pain, No Throat swelling, No Other Cardiovascular: Chest Pain, Palpitations; No Orthopnea, No Paroxysmal Noc. Dyspnea, No Edema, No Lt Headedness, No Other Respiratory: Cough; No Dry; Shortness of breath; No SOB with excertion, No Wheezing, No Hemoptysis, No Pleuritic Pain, No Sputum, No Other Gastrointestinal: Nausea, Vomiting; No Abdominal Pain, No Diarrhea, No Constipation, No Melena, No Hematochezia, No Other Genitourinary: No Dysuria, No Frequency, No Incontinence, No Hematuria, No Retention, No Other Musculoskeletal: No other, No neck pain, No shoulder pain, No arm pain, No back pain, No hand pain, No leg pain, No foot pain Skin: No Rash, No Lesions, No Jaundice, No Bruising, No Other Objective Vitals Vital Signs Date Time Temp Pulse Resp B/P (MAP) Pulse Ox O2 Delivery O2 Flow Rate FiO2 06/15/24 12:41 98.5 66 18 110/57 (74) 92 98.5 06/15/24 11:33 Nasal Cannula* 2 28 Intake/Output Intake and Output 06/15/24 07:00 Intake Total 1390 ml Balance 1390 ml Intake Oral 1340 ml IV Total 50 ml # Voids 7 General Appearance: Alert, Oriented X3, Cooperative, moderate distress Lungs: Other (Diffuse wheezing) Cardiovascular: Regular rate, Normal S1, Normal S2 Abdomen: Normal bowel sounds, Soft, No tenderness Extremities: No edema Medications Current Medications Medications Dose Ordered Sig/Santy Route Start Time Stop Time Status Last Admin Dose Admin Methylprednisolone Sodium Succinate 40 mg BID IV 06/13/24 22:00 06/15/24 10:05 40 MG Ceftriaxone Sodium 50 ml @ 100 mls/hr DAILY IV 06/13/24 15:30 06/15/24 10:03 100 MLS/HR Azithromycin 500 mg DAILY PO 06/13/24 15:30 06/15/24 10:03 500 MG Carvedilol 3.125 mg BID PO 06/13/24 22:00 06/15/24 10:04 3.125 MG Empaglifozin 10 mg QAM PO 06/14/24 07:00 06/15/24 06:39 10 MG Sacubitril/ Valsartan 1 tab BID PO 06/13/24 22:00 06/15/24 10:04 1 TAB Atorvastatin Calcium 20 mg HS PO 06/13/24 22:00 06/14/24 21:10 20 MG Nitroglycerin 0.4 mg Q5MINP PRN SL 06/13/24 20:15 Morphine Sulfate 2 mg Q30M PRN IV 06/13/24 20:15 Gabapentin 600 mg BID PO 06/14/24 22:00 06/15/24 10:04 600 MG Albuterol 2.5 mg Q6HR NEB 06/14/24 18:00 06/15/24 11:33 2.5 MG Ipratropium [place] 0.5 mg Q6H NEB 06/14/24 18:00 06/15/24 11:33 0.5 MG Morphine Sulfate 15 mg Q12HR PO 06/14/24 22:00 06/15/24 10:04 15 MG Laboratory Results Laboratory Tests 06/15/24 05:50 Chemistry Test 06/15/24 05:50 Calcium Level 9.8 mg/dL (8.7-10.4) Magnesium Level 2.1 mg/dL (1.6-2.6) Urinalysis Test 06/13/24 08:53 Urine Color Yellow (Yellow) Urine Clarity Clear (Clear) Urine pH 5.0 (5.0-9.0) Urine Specific [place] 1.041 (1.001-1.035) Urine Protein Negative (Negative) Urine Ketones Negative (Negative) Urine Blood Negative /uL (Negative) Urine Nitrite Negative (Negative) Urine Bilirubin Negative (Negative) Urine Urobilinogen Normal mg/dL (Negative) Urine Leukocyte Esterase Negative /uL (Negative) Urine RBC None seen /hpf (0 - 3) Urine WBC 1 /hpf (0 - 3) Urine Squamous Epithelial Cells Few /hpf (<5) Urine Bacteria None seen /hpf (None Seen) Urine Glucose 4+ mg/dL (Normal) H Assessment/Plan Assessment/Plan Acute hypoxic respiratory failure due to COPD exacerbation COPD exacerbation Chronic respiratory failure on home O2 Coronary artery disease COPD CHF Hypertension Chronic low back pain Plan 06/14/2024: Continue oxygen IV steroids Continue the home medications Med neb treatments IV Rocephin and Zithromax 06/15/2024: Continue same management Pain control Continue oxygen IV steroids Discharge planning for tomorrow Plan discussed with: Patient My Orders Orders - MEHNAZ STEWART MD Procedure Category Date Status Time Gabapentin Capsule PHA 06/14/24 In Process (Neurontin Capsule) 22:00 Albuterol Medneb PHA 06/14/24 In Process (Ventolin Medneb) 18:00 Ipratropium Medneb PHA 06/14/24 In Process (Atrovent Medneb) 18:00 Morphine Extended PHA 06/14/24 In Process Release Tab (Oramorph 22:00 Initiate Vte KANNAN 06/14/24 In Process Prophylaxis 20:24 Date of Service: Jun 15, 2024 Billing Provider: MEHNAZ STEWART MD Common Visit Codes: [id number] INP/OBS CARE(HIGH) MEHNAZ STEWART MD Jun 15, 2024 13:20
[2024-06-16] VITALS (13 sets, daily range): BP systolic 106–120; BP diastolic 59–70; PULSE 55–71; RESP 16–20; TEMP 97–97.8; O2SAT 91–97
[2024-06-16] MEDS: HYDROcodone-ACET 5/325MG TAB PO PRN (02:13)
[2024-06-16] MEDS ORDERED: METH4PAK PO (09:56)
[2024-06-16] MEDS ORDERED: AZIT-185 PO (09:56)
--- NOTE | 2024-06-16 12:11 | DVHDS2 ---
Discharge Summary Date of Admission Jun 13, 2024 at 20:12 Date of Discharge: Jun 16, 2024 Labs/Diagnostic Data: Laboratory Results Test 06/15/24 05:50 06/13/24 12:11 06/13/24 09:56 06/13/24 09:22 White Blood Count 9.6 10^3/uL (4.4-10.8) Red Blood Count 5.45 10^6/uL (4.5-5.90) Hemoglobin 16.4 g/dL (13.5-17.5) Hematocrit 48.3 % (41.0-53.0) Mean Corpuscular Volume 88.7 fL (80.0-100.0) Mean Corpuscular Hemoglobin 30.0 pg (28.0-32.0) Mean Corpuscular Hemoglobin Concent 33.9 g/dL (32.0-36.0) Red Cell Distribution Width 14.3 % (11.8-14.3) Platelet Count 221 10^3/uL (140-450) Mean Platelet Volume 8.2 fL (6.9-10.8) Neutrophils (%) (Auto) 79.5 % (37.0-80.0) Lymphocytes (%) (Auto) 12.0 % (10.0-50.0) Monocytes (%) (Auto) 8.4 % (0.0-12.0) Eosinophils (%) (Auto) 0.0 % (0.0-7.0) Basophils (%) (Auto) 0.1 % (0.0-2.0) Neutrophils # (Auto) 7.6 10 ^3/uL (1.6-8.6) Lymphocytes # (Auto) 1.1 10 ^3/uL (0.4-5.4) Monocytes # (Auto) 0.8 10 ^3/uL (0-1.3) Eosinophils # (Auto) 0 10 ^3/uL (0-0.8) Basophils # (Auto) 0 10 ^3/uL (0-0.2) Nucleated Red Blood Cells 0.0 % Sodium Level 140 mmol/L (136-145) Potassium Level 4.1 mmol/L (3.5-5.1) Chloride Level 103 mmol/L (98-107) Carbon Dioxide Level 29 mmol/L (20-31) Anion Gap 8 (5-15) Blood Urea Nitrogen 19 mg/dL (9-23) Creatinine 0.93 mg/dL (0.700-1.30) Glomerular Filtration Rate Calc 98 mL/min (>90) BUN/Creatinine Ratio 20.4 (10.0-20.0) Serum Glucose 158 mg/dL (74-106) Calcium Level 9.8 mg/dL (8.7-10.4) Magnesium Level 2.1 mg/dL (1.6-2.6) Troponin I High Sensitivity < 3 ng/L (</=54) Influenza Type A Antigen Negative (Negative) Influenza Type B Antigen Negative (Negative) SARS-CoV-2 Antigen (Rapid) Negative (NEGATIVE) Hemoglobin A1c 6.4 % A1C (<5.7) B-Type Natriuretic Peptide 9.67 pg/mL (0-100) Lipase 40 U/L (12-53) Test 06/13/24 08:53 Urine Color Yellow (Yellow) Urine Clarity Clear (Clear) Urine pH 5.0 (5.0-9.0) Urine Specific [place] 1.041 (1.001-1.035) Urine Protein Negative (Negative) Urine Ketones Negative (Negative) Urine Blood Negative /uL (Negative) Urine Nitrite Negative (Negative) Urine Bilirubin Negative (Negative) Urine Urobilinogen Normal mg/dL (Negative) Urine Leukocyte Esterase Negative /uL (Negative) Urine RBC None seen /hpf (0 - 3) Urine WBC 1 /hpf (0 - 3) Urine Squamous Epithelial Cells Few /hpf (<5) Urine Bacteria None seen /hpf (None Seen) Urine Glucose 4+ mg/dL (Normal) Other Laboratory Tests 06/15/24 05:50 Brief Hx & Hospital Course: Final diagnoses: Acute hypoxic respiratory failure due to COPD exacerbation COPD exacerbation Chronic respiratory failure on home O2 Coronary artery disease COPD CHF Hypertension Chronic low back pain 54-year-old male who was admitted for upper respiratory infection cough and wheezing due to COPD exacerbation The chest x-ray shows no pneumonia He was given oxygen and med neb treatments and IV antibiotics and steroids Overall he improved significantly and he is ready to go home today Give him a tapered dose prednisone and Zithromax in addition to his regular home medications Follow up with his primary care physician in 1-2 weeks Condition at Discharge: Stable Final Diagnosis/Problems List Acute hypoxic respiratory failure due to COPD exacerbation COPD exacerbation Chronic respiratory failure on home O2 Coronary artery disease COPD CHF Hypertension Chronic low back pain Discharge Disposition: Home SNF Discharge Will this Physician continue t: No Discharge Statement: "Patient was advised to return to the ER or call 911 if any headaches, dizziness, shortness of breath, chest pain, abdominal pain, bleeding, fevers, or worsening of medical condition. Patient was counseled about treatment plan, medications, possible side effects, patientverbalized understanding. All questions were answered to the best of my ability. This discharge took greater then 30 minutes in planning, reviewing documentation, counseling the patient, and discussing with other team members." ASSESSMENT ASSESSMENT Assessment Date of Service: Jun 16, 2024 Billing Provider: MEHNAZ STEWART MD Common Visit Codes: [id number] DISCH DAY >30min MEHNAZ STEWART MD Jun 16, 2024 12:11
== END 2024-06-16 14:43 | disposition home or self-care (01) | DRG 140 ==
LOC: ER 08:41 → TELE 20:12 → TELE-WESTW 06-14 04:20
PROVIDERS: ADMIT Nurse Practitioner Family; ATTEND Internal Medicine Geriatric Medicine
DX: J44.1 Chronic obstructive pulmonary disease with (acute) exacerbation (principal); J96.21 Acute and chronic respiratory failure with hypoxia; I50.32 Chronic diastolic (congestive) heart failure; I11.0 Hypertensive heart disease with heart failure; J45.901 Unspecified asthma with (acute) exacerbation; Z20.822 Contact with and (suspected) exposure to COVID-19; G89.4 Chronic pain syndrome; M54.50 Low back pain, unspecified; E66.9 Obesity, unspecified; E11.9 Type 2 diabetes mellitus without complications; I25.10 Atherosclerotic heart disease of native coronary artery without angina pectoris; J43.9 Emphysema, unspecified; Z83.3 Family history of diabetes mellitus; Z88.2 Allergy status to sulfonamides; Z91.013 Allergy to seafood; Z79.899 Other long term (current) drug therapy; Z99.81 Dependence on supplemental oxygen; Z68.32 Body mass index [BMI] 32.0-32.9, adult
CPT/HCPCS: 36415; 71045; 80048; 81001; 83036; 83690; 83735; 83880; 84484; 85025; 87426; 87804; 93005; 94640; G0378; J2405; J3490

== ENCOUNTER 2024-07-26 04:53 | Inpatient (IN) | payer MEDICAID ==
[~2024-07-26] VITALS: Ht 335.3 cm; Wt 109.5 kg
[2024-07-26] VITALS (12 sets, daily range): BP systolic 104–123; BP diastolic 54–71; PULSE 70–85; RESP 17–81; TEMP 97.3–98.1; O2SAT 90–99
[~2024-07-26 04:53] MED LIST changes: -ALBU108A5 IN; +AZIT-185 PO; -AZITTAB PO; -CARV3.1240 PO; -FURO20TA3 PO; -IPR002IS NEB; -SEMA4INJ SC
--- NOTE | 2024-07-26 05:15 | ED.PDOC ---
SOB-HPI HPI Comments 54-year-old male came to emergency room due to shortness of breath. Patient notes history of COPD, on home oxygen at 2 liters/minute. For the past few hours, he has been having shortness of breath progressively worsening with wheezing. Saturating 94% on room air. Inhalers taken offered no relief prompting patient to come to the emergency room Chief Complaint: Shortness of Breath Time Seen by MD: 05:14 Primary Care Provider: DARIELA Reviewed notes: Nurses Notes Information Source: Patient Mode of Arrival: Ambulatory Severity: Moderate Timing: Hours Duration: Since onset Context: At Rest, With Light Exertion PE Risk Factors: None History of: Asthma, COPD Prehospital treatment: Breathing Tx Modifying Factors: Nothing Associated Signs and Symptoms: Wheeze, Cough Quality: Tightness Radiation: No Radiation If cough with SOB: Non-Productive Past Medical History PAST MEDICAL HISTORY: Arthritis, Asthma, CHF, COPD, DM, GERD Surgical History: Hernia Repair Family History Family History: Family hx of DM, Family hx of heart anel Social History Smoker: Non-Smoker, Quit Greater Than 1 Year Alcohol: Denies ETOH Use Drugs: Denies Drug Use Lives In: Home Constitutional: denies: chills, diaphoresis, fatigue, fever, malaise, sweats, weakness, others EENTM: denies: blurred vision, double vision, ear bleeding, ear discharge, ear drainage, ear pain, ear ringing, eye pain, eye redness, hearing loss, mouth pain, mouth swelling, nasal discharge, nose bleeding, nose congestion, nose pain, photophobia, tearing, throat pain, throat swelling, voice changes, others Respiratory: reports: cough, SOB at rest, shortness of breath, SOB with excertion, wheezing; denies: hemoptysis, orthopnea, stridor, others Cardiovascular: denies: chest pain, dizzy spells, diaphoresis, Dyspnea on exertion, edema, irregular heart beat, left arm pain, lightheadedness, palpitations, PND, syncope, others Gastrointestinal: denies: abdomen distended, abdominal pain, blood streaked bowels, constipated, diarrhea, dysphagia, difficulty swallowing, hematemesis, melena, nausea, poor appetite, poor fluid intake, rectal bleeding, rectal pain, vomiting, others Genitourinary: denies: burning, dysuria, flank pain, frequency, hematuria, incontinence, penile discharge, penile sore, pain, testicle pain, testicle swelling, urgency, others Neurological: denies: dizziness, fainting, headache, left sided numbness, left sided weakness, numbness, paresthesia, pre-existing deficit, right sided numbness, right sided weakness, seizure, speech problems, tingling, tremors, weakness, others Musculoskeletal: denies: back pain, gout, joint pain, joint swelling, muscle pain, muscle stiffness, neck pain, others Integumetry: denies: bruises, change in color, change in hair/nails, dryness, laceration, lesions, lumps, rash, wounds, others Allergic/Immunocompromised: denies: Difficulty Healing, Frequent Infections, Hives, Itching, others Hematologic/Lymphatic: denies: anemia, blood clots, easy bleeding, easy bruising, swollen glands, others Endocrine: denies: excessive hunger, excessive sweating, excessive thirst, excessive urination, flushing, intolerance to cold, intolerance to heat, unexplained weight gain, unexplained weight loss, others Psychiatric: denies: anxiety, bipolar disorder, depression, hopeless, panic disorder, schizophrenia, sleepless, suicidal, others Physical Exam General Appearance: Moderate Distress HEENT: Normal ENT Inspection, Pharynx Normal, TMs Normal Neck: Full Range of Motion, Non-Tender, Normal, Normal Inspection Respiratory: Chest Non-Tender, No Accessory Muscle Use, Respiratory Distress, Wheezing Cardiovascular: No Edema, No JVD, No Murmur, No Gallop, Normal Peripheral Pulses, Regular Rate/Rhythm Breast Exam: Deferred Gastrointestinal: No Organomegaly, Non Tender, No Pulsatile Mass, Normal Bowel Sounds, Soft Genitalia: Deferred Pelvic: Deferred Rectal: Deferred Extremities: No calf tenderness, Normal capillary refill, Normal inspection, Normal range of motion, Non-tender, No pedal edema Musculoskeletal : Apperance: Normal Neurologic: Alert, artificial stone setter II-XII nml as Tested, No Motor Deficits, Normal Affect, Normal Mood, No Sensory Deficits Cerebellar Function: Normal Reflexes: Normal Skin: Dry, Normal Color, Warm Lymphatic: No Adenopathy Was a procedure done? Was a procedure done?: No Differential Dx Differential Diagnosis: Asthma, Bronchitis, CHF, COPD, Hyperventilation, Myocardial infarction, Pneumonia, Respiratory Distress X-Ray, Labs, Meds, VS Vital Signs Date Time Temp Pulse Resp B/P (MAP) Pulse Ox O2 Delivery O2 Flow Rate FiO2 07/26/24 05:33 21 93 Room Air* 0 21 07/26/24 05:31 85 27 96 Room Air* 0 21 07/26/24 05:31 97.0 83 27 113/65 (81) 96 97.0 07/26/24 05:17 24 94 Room Air 07/26/24 05:17 98.9 84 24 126/46 (72) 96 Current Medications Medications (Trade) Dose Ordered Sig/Santy Route Start Time Stop Time Status Last Admin Ipratropium [place] (Atrovent Medneb) 0.5 mg ONCE ONCE NEB 07/26/24 05:15 07/26/24 05:16 DC 07/26/24 05:33 Albuterol (Ventolin Medneb) 1.25 mg ONCE ONCE NEB 07/26/24 05:15 07/26/24 05:16 DC 07/26/24 05:33 Methylprednisolone Sodium Succinate (Solu Medrol) 62.5 mg ONCE ONCE IV 07/26/24 05:15 07/26/24 05:16 DC 07/26/24 05:23 Azithromycin (Zithromax Tablet) 500 mg ONCE ONCE PO 07/26/24 05:15 07/26/24 05:16 DC 07/26/24 05:23 Time of 1ST Reevaluation: 05:11 Reevaluation 1ST: Unchanged Patient Education/Counseling: Diagnosis, Treatment Family Education/Counseling: No Family Present Departure 1 Departure Time of Disposition: 05:47 (Patient presented with acute shortness of breath concerning for acute on chronic COPD Exacerbation, Pneumonia, ACS, CHF, Pneumothorax. Less likely PE, Dissection. Data: 1. I ordered and reviewed the result of at least 3 labs including a CBC, BMP, and Troponin. 2. I independently interpreted the following tests: Chest X-ray shows chronic airspace disease .Risk:This patient has a high risk of morbidity due to further diagnostic testing or treatment and may suffer from respiratory or cardiac etiology . Workup reveals a likely COPD Exacerbation and patient should be admitted for further workup. and possible expert consultation.) Impression: Primary Impression: Acute and chronic respiratory failure Additional Impression: Acute exacerbation of chronic obstructive pulmonary disease (COPD) Disposition: ADMITTED INPATIENT Admit to: Med Surg Condition: Serious Critical Care Note Critical Care Time?: Yes (35 min-critical care time only) Critical care comment: Shortness of breath Authorized and Performed by: Filipe Vidal MD Total critical care time: Approximately 38 minutes Due to a high probability of clinically significant, life threatening deterioration, the patient required my highest level of preparedness to intervene emergently and I personally spent this critical care time directly and personally managing the patient. This critical care time included obtaining a history; examining the patient; pulse oximetry; ordering and review of studies; arranging urgent treatment with development of a management plan; evaluation of patient's response to treatment; frequent reassessment; and, discussions with ot her providers. This critical care time was performed to assess and manage the high probability of imminent, life-threatening deterioration that could result in multi-organ failure. It was exclusive of separately billable procedures and treating other patients and teaching time. Please see my other sections and the rest of the note for further information on patient assessment and treatment. Stability Stability form required: No Heart Score Heart Score: Heart Score Response (Comments) Value History Moderate Suspicious 1 EKG Repolarization Disturb 1 Age 45-64 1 Risk Factors >3 or Hx ASHD 2 Troponin Normal limit 0 Total 5 I personally scribed for FILIPE VIDAL MD ([email or web address]) on 07/26/24 at 05:15. Electronically submitted by Casey Robert ([facility]). FILIPE VIDAL MD Jul 26, 2024 05:15
[2024-07-26] MEDS: AZITHROMYCIN 250 MG TAB PO ONE (05:23)
[2024-07-26] MEDS: methylPREDNISolone SOD SUCC 125 MG/2 ML VL IV ONE (05:23)
[2024-07-26] MEDS: ALBUTEROL SULF 2.5 MG/0.5ML(0.5%) NEB SOLN NEB ONE (05:33)
[2024-07-26] MEDS: IPRATROPIUM BROM 0.5 MG/2.5ML INH SOL NEB ONE (05:33)
--- NOTE | 2024-07-26 05:33 | DVH ---
CHEST RADIOGRAPH Indication: sob Technique: Single frontal view of the chest was obtained Comparison: XY CHEST PORTABLE on DOS: 06/13/24, XY CHEST PORTABLE on DOS: 01/18/24, XY CHEST PORTABLE on DOS: 12/23/23 IMPRESSION: Heart appears normal in size. The lungs appear clear without focal airspace opacity, effusion, or pn eumothorax
[2024-07-26 06:20] LABS: Basophils # (auto) 0 10 ^3/uL (0-0.2); Basophils % (auto) 0.6 % (0.0-2.0); Eosinophils # (auto) 0.3 10 ^3/uL (0-0.8); Eosinophils % (auto) 3.4 % (0.0-7.0); Hematocrit 42.9 % (41.0-53.0); Hemoglobin 14.6 g/dL (13.5-17.5); Lymphocytes # (auto) 2.5 10 ^3/uL (0.4-5.4); Lymphocytes % (auto) 31.1 % (10.0-50.0); Mean Corpuscular Hemoglobin 29.7 pg (28.0-32.0); Mean Corpuscular Volume 87.2 fL (80.0-100.0); Monocytes # (auto) 0.8 10 ^3/uL (0-1.3); Monocytes % (auto) 9.6 % (0.0-12.0); Neutrophils # (auto) 4.5 10 ^3/uL (1.6-8.6); Neutrophils % (auto) 55.3 % (37.0-80.0); Nucleated Red Blood Cells % 0.1 %; Platelet Count (auto) 198 10^3/uL (140-450); Red Blood Cells 4.92 10^6/uL (4.5-5.90); Red Cell Distribution Width 14.1 % (11.8-14.3); White Blood Cell 8.2 10^3/uL (4.4-10.8)
[2024-07-26 06:34] LABS: Sodium 142 mmol/L (136-145)
[2024-07-26 06:35] LABS: Anion Gap 8 (5-15); Carbon Dioxide 24 mmol/L (20-31)
[2024-07-26 06:36] LABS: Calcium 8.7 mg/dL (8.7-10.4)
[2024-07-26 06:40] LABS: BUN/Creatinine Ratio 15.7 (10.0-20.0); Blood Urea Nitrogen 11 mg/dL (9-23)
[2024-07-26 06:41] LABS: Chloride 110 mmol/L (98-107); Glucose 134 mg/dL (74-106)
[2024-07-26] MEDS: POTASSIUM CHL 20 Meq TABLET PO ONE (08:46)
--- NOTE | 2024-07-26 11:08 | DVHHP2 ---
History of Present Illness Reason for Visit: SOB History of Present Illness Rich Barrios is a 54-year-old male with past medical history of diabetes, COPD, asthma, CHF, GERD, arthritis, pneumonia, bronchitis, emphysema, hernia repair, back surgery, and right leg surgery who presents to the ED for shortness of breath x1 week. Patient reports that he was recently hospitalized at [place] for the same symptoms and was discharged. 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 Patient reports that he woke up at 1:00 a.m. this morning feeling short of breath and took a breathing treatment with no relief. Patient denies any chest pain, abdominal pain, nausea, vomiting, diarrhea, fever, chills, lightheadedness, and dizziness. Patient reports that he uses 2 L nasal cannula of oxygen at home. Cardiovascular: CHF Pulmonary: Bronchitis, COPD, Other (Emphysema), Pneumonia GI: GERD Endocrine: Diabetes Past Medical History Arthritis Past Surgical History: Hernia Repair, Other (Back surgery and right leg surgery) Family History: DM, Other (Mom cirrhosis of the liver and dad with heart disease and diabetes) Smoke: Quit ALCOHOL: none Drugs: None Lives: Roommate Domestic Violence: Neg Review of Systems Constitutional: No: Fever, Chills, Sweats, Weakness, Malaise, Other Eyes: No: Pain, Vision change, Conjunctivae inflammation, Eyelid inflammation, Other, Redness ENT: No: Ear pain, Ear discharge, Nose pain, Nose discharge, Nose congestion, Mouth pain, Mouth swelling, Throat pain, Throat swelling, Other Respiratory: Shortness of breath; No: Cough, Dry, SOB with excertion, Wheezing, Hemoptysis, Pleuritic Pain, Sputum, Wheezing, Other Cardiovascular: No: Chest Pain, Palpitations, Orthopnea, Paroxysmal Noc. Dyspnea, Edema, Lt Headedness, Other Gastrointestinal: No: Nausea, Vomiting, Abdominal Pain, Diarrhea, Constipation, Melena, Hematochezia, Other Genitourinary: No Dysuria, No Frequency, No Incontinence, No Hematuria, No Retention, No Other Musculoskeletal: back pain; No: other, neck pain, shoulder pain, arm pain, hand pain, leg pain, foot pain Skin: No: Rash, Lesions, Jaundice, Bruising, Other Neurological: No: Weakness, Numbness, Incoordination, Change in speech, Confusion, Seizures, Other Allergies: Coded Allergies: Sulfa Drugs (Verified Allergy, Unknown, 09/25/22) Uncoded Allergies: shell fish (Adverse Reaction, Mild, 05/08/23) bloody nose Medications Current Medications Medications Dose Ordered Sig/Santy Route Start Time Stop Time Status Last Admin Dose Admin Empaglifozin 10 mg QAM PO 07/27/24 07:00 Montelukast Sodium 10 mg DAILY PO 07/27/24 10:00 Sacubitril/ Valsartan 1 tab BID PO 07/26/24 22:00 Gabapentin 600 mg BID PO 07/26/24 10:00 Patient Own Medication 1 tab DAILY PO 07/27/24 10:00 Atorvastatin Calcium 40 mg DAILY PO 07/27/24 10:00 Exam Vital Signs Vital Signs Date Time Temp Pulse Resp B/P (MAP) Pulse Ox O2 Delivery O2 Flow Rate FiO2 07/26/24 10:00 79 18 118/67 (84) 92 07/26/24 07:30 Room Air* 0 21 07/26/24 07:30 98.1 98.1 General Appearance: Alert, Oriented X3, Cooperative, No acute distress HEENT: Atraumatic, PERRLA, EOMI, Mucous membr. moist/pink Respiratory: Normal air movement Cardiovascular: Regular rate, Normal S1, Normal S2, No murmurs Abdominal: Normal bowel sounds, Soft, No tenderness, No hepatospenomegaly, No masses Extremities: No clubbing, No cyanosis, No edema, Normal pulses Skin: No rashes, No breakdown, No significant lesion Neuro: Normal speech, Strength at 5/5 X4 ext, Normal tone, Sensation intact Psych/Mental Status: Mental status NL, Mood NL Labs/Xrays Labs Test 07/26/24 08:42 07/26/24 05:40 07/26/24 05:25 Range/Units Troponin I High Sensitivity 26 </=54 ng/L White Blood Count 8.2 4.4-10.8 10^3/uL Red Blood Count 4.92 4.5-5.90 10^6/uL Hemoglobin 14.6 13.5-17.5 g/dL Hematocrit 42.9 41.0-53.0 % Mean Corpuscular Volume 87.2 80.0-100.0 fL Mean Corpuscular Hemoglobin 29.7 28.0-32.0 pg Mean Corpuscular Hemoglobin Concent 34.0 32.0-36.0 g/dL Red Cell Distribution Width 14.1 11.8-14.3 % Platelet Count 198 140-450 10^3/uL Mean Platelet Volume 7.9 6.9-10.8 fL Neutrophils (%) (Auto) 55.3 37.0-80.0 % Lymphocytes (%) (Auto) 31.1 10.0-50.0 % Monocytes (%) (Auto) 9.6 0.0-12.0 % Eosinophils (%) (Auto) 3.4 0.0-7.0 % Basophils (%) (Auto) 0.6 0.0-2.0 % Neutrophils # (Auto) 4.5 1.6-8.6 10 ^3/uL Lymphocytes # (Auto) 2.5 0.4-5.4 10 ^3/uL Monocytes # (Auto) 0.8 0-1.3 10 ^3/uL Eosinophils # (Auto) 0.3 0-0.8 10 ^3/uL Basophils # (Auto) 0 0-0.2 10 ^3/uL Nucleated Red Blood Cells 0.1 % Sodium Level 142 136-145 mmol/L Potassium Level 3.0 L 3.5-5.1 mmol/L Chloride Level 110 H 98-107 mmol/L Carbon Dioxide Level 24 20-31 mmol/L Anion Gap 8 5-15 Blood Urea Nitrogen 11 9-23 mg/dL Creatinine 0.70 0.700-1.30 mg/dL Glomerular Filtration Rate Calc 110 >90 mL/min BUN/Creatinine Ratio 15.7 10.0-20.0 Serum Glucose 134 H 74-106 mg/dL Calcium Level 8.7 8.7-10.4 mg/dL B-Type Natriuretic Peptide 22.93 0-100 pg/mL Blood Gas Specimen Type Venous Blood Gas Sample Site Vbg - n/a Blood Gas Patient Temperature 37.0 Arterial Blood Date Drawn [id number] Merlin Test N/a Venous Blood pH 7.385 7.320-7.430 Venous Blood pCO2 at Patient Temp 36.0 L 38.0-54.0 mmHg Venous Blood pO2 at Patient Temp 51.7 H 23.0-48.0 mmHg Venous Blood HCO3 21.1 L 22.0-29.0 mmol/L Venous Blood Base Excess -3.3 L -2.0-3.0 mmol/L Blood Gas Modality Room air FiO2 % 21.0 CHEST RADIOGRAPH Indication: sob Technique: Single frontal view of the chest was obtained Comparison: XY CHEST PORTABLE on DOS: 06/13/24, XY CHEST PORTABLE on DOS: 01/18/24, XY CHEST PORTABLE on DOS: 12/23/23 IMPRESSION: Heart appears normal in size. The lungs appear clear without focal airspace opacity, effusion, or pneumothorax Assessment/Plan Assessment/Plan Assessment/Plan: Acute on chronic respiratory failure likely due to COPD exacerbation Labs Respiratory treatments Chest x-ray noted VBG ordered in ED IV antibiotics-azithromycin Steroids Troponin negative x3 BNP UA UDS Flu panel COVID panel Budesonide Famotidine A.m. labs Supportive oxygen Hypokalemia Replete lytes Diabetes type 2 uncontrolled Hemoglobin A1c 6.3% ISS and Accu-Cheks Chronic back pain Continue home medications Chronic CHF Continue home medications History of GERD Famotidine FEN/PPX Diet Hep-Lock DVT prophylaxis not indicated patient ambulating PUD prophylaxis-famotidine given with steroid Discussed plan of care with patient and nurse Home medications reconciled Admit to med surg Plan discussed with: Patient My Orders Orders - LYNDSAY HOOD SOFTWARE TESTING SPECIALIST Procedure Category Date Status Time Empagliflozin PHA 07/27/24 In Process (Jardiance) 07:00 Montelukast Tablet PHA 07/27/24 In Process (Singulair Tablet) 10:00 Sacubitril-Valsartan PHA 07/26/24 In Process (Entresto 24-26 Mg 22:00 Gabapentin Capsule PHA 07/26/24 In Process (Neurontin Capsule) 10:00 (Nf) Naloxegol PHA 07/27/24 In Process Oxalate (Movantik) 10:00 Atorvastatin (Lipitor) PHA 07/27/24 In Process 10:00 Urinalysis LAB 07/26/24 Verified 11:02 Drug Screen LAB 07/26/24 Verified 11:02 Hemoglobin A1c LAB 07/26/24 Verified 11:02 Glucose Blood PHA 07/26/24 Verified (Accu-Chek Comfort 11:30 Mild Sliding Scale PHA 07/26/24 Verified 11:30 Dextrose 50% Syringe PHA 07/26/24 Verified 11:15 Albuterol Medneb PHA 07/26/24 Verified (Ventolin Medneb) 14:00 Albuterol Medneb PHA 07/26/24 Verified (Ventolin Medneb) 11:15 Ipratropium Medneb PHA 07/26/24 Verified (Atrovent Medneb) 14:00 Ipratropium Medneb PHA 07/26/24 Verified (Atrovent Medneb) 11:15 Methylprednisolone PHA 07/26/24 Verified Sod Succ (Solu Medrol 14:00 Budesonide PHA 07/26/24 Verified (Inhalation) 22:00 Famotidine Injection PHA 07/27/24 Verified (Pepcid Injection) 10:00 Rapid Influenza A&B LAB 07/26/24 Verified 11:02 Covid19 Antigen Bethanie LAB 07/26/24 Verified Admit ADMIT 07/26/24 Verified 11:02 Allergies KANNAN 07/26/24 Verified 11:02 Code Status CODE 07/26/24 Verified 11:02 Ondansetron Hcl PHA 07/26/24 Verified (Zofran) 11:15 Complete Blood Count LAB 07/27/24 Verified 04:00 Comprehensive LAB 07/27/24 Verified Metabolic Panel 04:00 Cardiac DIET 07/26/24 Verified Diet-2gna,Lofat,Lochol Lunch Acetaminophen Tablet PHA 07/26/24 Verified (Tylenol Tablet) 11:15 Date of Service: Jul 26, 2024 Billing Provider: LYNDSAY HOOD Common Visit Codes: [id number] INP/OBS CARE (HIGH) YLNDSAY HOOD Jul 26, 2024 11:08
[2024-07-26] MEDS: GABAPENTIN 300 MG CAP PO SCH (11:10)
[2024-07-26] MEDS ORDERED: DEXTROSE (50%) 50ML SYRG IV PRN (11:15)
[2024-07-26] MEDS ORDERED: ACETAMINOPHEN 325 MG TAB PO PRN (11:15)
[2024-07-26] MEDS ORDERED: ONDANSETRON HCL 4 MG/2 ML VIAL IV PRN (11:15)
[2024-07-26] MEDS ORDERED: ALBUTEROL SULF 2.5 MG/0.5ML(0.5%) NEB SOLN NEB PRN (11:15)
[2024-07-26] MEDS ORDERED: IPRATROPIUM BROM 0.5 MG/2.5ML INH SOL NEB PRN (11:15)
[2024-07-26] MEDS: HYDROcodone-ACET 10/325MG TAB PO PRN (11:33)
[2024-07-26] MEDS: InsuLIN REG 1unit/0.01ml Soln (100units/ml) SC SCH (11:39)
[2024-07-26] MEDS: ACCU-CHEK COMFORT CURVE STRIP VI SCH (11:39)
[2024-07-26 12:27] LABS: COVID19 ANTIGEN SOFIA FIA NEGATIVE (NEGATIVE); Rapid Influenza A Negative (Negative); Rapid Influenza B Negative (Negative)
[2024-07-26] MEDS ORDERED: CARV3.1240 PO (13:42)
[2024-07-26] MEDS: ALBUTEROL SULF 2.5 MG/0.5ML(0.5%) NEB SOLN NEB SCH (14:00)
[2024-07-26] MEDS ORDERED: HYDROcodone-ACET 10/325MG TAB PO SCH (14:00)
[2024-07-26] MEDS: IPRATROPIUM BROM 0.5 MG/2.5ML INH SOL NEB SCH (14:00)
[2024-07-26] MEDS: methylPREDNISolone SOD SUCC 40 MG/ML VL IV SCH (17:42)
[2024-07-26] MEDS: BUDESONIDE (INHALATION) 0.5 MG/2 ML NEB NEB SCH (19:47)
[2024-07-26] MEDS: SACUBITRIL-VALSARTAN 24mg/26mg TAB PO SCH (21:01)
[2024-07-27] VITALS (20 sets, daily range): BP systolic 106–126; BP diastolic 53–74; PULSE 65–90; RESP 16–20; TEMP 97.9–98.2; O2SAT 91–100
[2024-07-27] MEDS: EMPAGLIFLOZIN 10 MG TAB PO SCH (05:59)
[2024-07-27 06:38] LABS: Basophils # (auto) 0.1 10 ^3/uL (0-0.2); Basophils % (auto) 0.8 % (0.0-2.0); Eosinophils # (auto) 0 10 ^3/uL (0-0.8); Eosinophils % (auto) 0.1 % (0.0-7.0); Hemoglobin 15.1 g/dL (13.5-17.5); Lymphocytes # (auto) 1.5 10 ^3/uL (0.4-5.4); Lymphocytes % (auto) 10.3 % (10.0-50.0); Mean Corpuscular Hemoglobin 29.6 pg (28.0-32.0); Mean Corpuscular Hgb Conc. 33.6 g/dL (32.0-36.0); Mean Corpuscular Volume 88.1 fL (80.0-100.0); Monocytes # (auto) 0.6 10 ^3/uL (0-1.3); Monocytes % (auto) 4.2 % (0.0-12.0); Neutrophils # (auto) 12.4 10 ^3/uL (1.6-8.6); Neutrophils % (auto) 84.6 % (37.0-80.0); Nucleated Red Blood Cells % 0.1 %; Platelet Count (auto) 235 10^3/uL (140-450); Red Blood Cells 5.11 10^6/uL (4.5-5.90); Red Cell Distribution Width 14.1 % (11.8-14.3); White Blood Cell 14.7 10^3/uL (4.4-10.8)
[2024-07-27 06:58] LABS: Alanine Aminotransferase 14 U/L (7-40); Albumin 4.2 g/dL (3.2-4.8); Alkaline Phosphatase 81 U/L (46-116); Anion Gap 9 (5-15); BUN/Creatinine Ratio 14.4 (10.0-20.0); Blood Urea Nitrogen 13 mg/dL (9-23); Calcium 9.9 mg/dL (8.7-10.4); Carbon Dioxide 22 mmol/L (20-31); Potassium 4.3 mmol/L (3.5-5.1); Sodium 138 mmol/L (136-145); Total Protein 6.2 g/dL (5.7-8.2)
[2024-07-27 07:07] LABS: Aspartate Aminotransferase < 8 U/L (13-40); Chloride 107 mmol/L (98-107); Glucose 191 mg/dL (74-106)
[2024-07-27 07:11] LABS: Bilirubin, Total 0.3 mg/dL (0.2-1.0)
[2024-07-27] MEDS: AZITHROMYCIN 500MG/ 250ML 250 ML IV SCH (09:10)
[2024-07-27] MEDS: FAMOTIDINE (10MG/ML) 2ML VL IV SCH (09:11)
[2024-07-27] MEDS: ATORVASTATIN 20 MG TAB PO SCH (09:11)
[2024-07-27] MEDS: MONTELUKAST SODIUM 10 MG TAB PO SCH (09:12)
[2024-07-27] MEDS: NALOXEGOL OXALATE PO SCH (09:14)
[2024-07-27 13:17] LABS: Urine Bacteria None Seen /hpf (None Seen)
[2024-07-27 13:20] LABS: Urine Blood Negative /uL (Negative); Urine Clarity Clear (Clear); Urine Color Light-Yellow (Yellow); Urine Protein, UAD Negative (Negative); Urine Specific Gravity 1.022 (1.001-1.035); Urine Squamous Epithelial Cell FEW /hpf (<5); Urine Urobilinogen Normal (Negative); Urine WBC < 1 /HPF (0-3)
[2024-07-27 13:38] LABS: Opiate Scree,Urine Neg (NEGATIVE)
[2024-07-27 13:44] LABS: Amphetamine Screen, Urine Neg (NEGATIVE); Barbiturate Scree,Urine Neg (NEGATIVE); Benzodiazephine Screen, Urine Neg (NEGATIVE); Cannabinoid Screen, Urine Neg (NEGATIVE); Cocaine Screen, Urine Neg (NEGATIVE); Phencyclidine Screen, Urine Neg (NEGATIVE)
--- NOTE | 2024-07-27 13:51 | DVHPN2 ---
Reviewed: Care Plan, H&P, Labs, Medications, Previous Orders, Radiology Changes from previous H/P or p: No Changes Eyes: No Pain, No Vision change, No Conjunctivae inflammation, No Eyelid inflammation, No Other, No Redness ENT: No Ear pain, No Ear discharge, No Nose pain, No Nose discharge, No Nose congestion, No Mouth pain, No Mouth swelling, No Throat pain, No Throat swelling, No Other Cardiovascular: No Chest Pain, No Palpitations, No Orthopnea, No Paroxysmal Noc. Dyspnea, No Edema, No Lt Headedness, No Other Respiratory: No Cough, No Dry; Shortness of breath; No SOB with excertion, No Wheezing, No Hemoptysis, No Pleuritic Pain, No Sputum, No Other Gastrointestinal: No Nausea, No Vomiting, No Abdominal Pain, No Diarrhea, No Constipation, No Melena, No Hematochezia, No Other Genitourinary: No Dysuria, No Frequency, No Incontinence, No Hematuria, No Retention, No Other Musculoskeletal: No other, No neck pain, No shoulder pain, No arm pain; back pain; No hand pain, No leg pain, No foot pain Skin: No Rash, No Lesions, No Jaundice, No Bruising, No Other Objective Vitals Vital Signs Date Time Temp Pulse Resp B/P (MAP) Pulse Ox O2 Delivery O2 Flow Rate FiO2 07/27/24 13:46 94 Room Air 07/27/24 13:46 0 21 07/27/24 13:45 78 20 07/27/24 13:04 98.0 126/71 (89) 98.0 Intake/Output Intake and Output 07/27/24 07:00 Intake Total 1640 ml Balance 1640 ml Intake Oral 1640 ml # Voids 16 Medications Current Medications Medications Dose Ordered Sig/Santy Route Start Time Stop Time Status Last Admin Dose Admin Empaglifozin 10 mg QAM PO 07/27/24 07:00 07/27/24 05:59 10 MG Montelukast Sodium 10 mg DAILY PO 07/27/24 10:00 07/27/24 09:12 10 MG Sacubitril/ Valsartan 1 tab BID PO 07/26/24 22:00 07/27/24 09:11 1 TAB Gabapentin 600 mg BID PO 07/26/24 10:00 07/27/24 09:11 600 MG Patient Own Medication 1 tab DAILY PO 07/27/24 10:00 Atorvastatin Calcium 40 mg DAILY PO 07/27/24 10:00 07/27/24 09:11 40 MG Diagnostic Test (Pha) 1 strip ACHS 07/26/24 11:30 07/27/24 12:26 1 STRIP Insulin Human Regular ACHS SC 07/26/24 11:30 07/27/24 12:27 3 UNITS Dextrose 50 ml UD PRN IV 07/26/24 11:15 Albuterol 2.5 mg Q4HWA NEB 07/26/24 14:00 07/27/24 13:44 2.5 MG Albuterol 2.5 mg Q2HPRN PRN NEB 07/26/24 11:15 Ipratropium [place] 0.5 mg Q4HWA NEB 07/26/24 14:00 07/27/24 13:44 0.5 MG Ipratropium [place] 0.5 mg Q2HPRN PRN NEB 07/26/24 11:15 Methylprednisolone Sodium Succinate 40 mg Q8HR IV 07/26/24 14:00 07/27/24 05:59 40 MG Budesonide 0.5 mg BID NEB 07/26/24 22:00 07/27/24 09:41 0.5 MG Famotidine 20 mg DAILY IV 07/27/24 10:00 07/27/24 09:11 20 MG Ondansetron HCl 4 mg Q4HP PRN IV 07/26/24 11:15 Acetaminophen 650 mg Q6HP PRN PO 07/26/24 11:15 Acetaminophen/ Hydrocodone Bitart 1 tab Q4HPRN PRN PO 07/26/24 11:30 07/27/24 03:08 1 TAB Acetaminophen/ Hydrocodone Bitart 1 tab TID PO 07/26/24 14:00 UNV Azithromycin 250 ml @ 125 mls/hr DAILY IV 07/27/24 10:00 07/27/24 09:10 125 MLS/HR Laboratory Results Laboratory Tests 07/27/24 06:12 Chemistry Test 07/27/24 06:12 Albumin 4.2 g/dL (3.2-4.8) Calcium Level 9.9 mg/dL (8.7-10.4) Total Protein 6.2 g/dL (5.7-8.2) LFT Test 07/27/24 06:12 Alanine Aminotransferase (ALT) 14 U/L (7-40) Alkaline Phosphatase 81 U/L (46-116) Aspartate Amino Transferase (AST) < 8 U/L (13-40) L Total Bilirubin 0.3 mg/dL (0.2-1.0) Urinalysis Test 07/27/24 12:58 Urine Color Light-yellow (Yellow) Urine Clarity Clear (Clear) Urine pH 7.0 (5.0-9.0) Urine Specific [place] 1.022 (1.001-1.035) Urine Protein Negative (Negative) Urine Ketones Negative (Negative) Urine Blood Negative /uL (Negative) Urine Nitrite Negative (Negative) Urine Bilirubin Negative (Negative) Urine Urobilinogen Normal mg/dL (Negative) Urine Leukocyte Esterase Negative /uL (Negative) Urine RBC 2 /hpf (0 - 3) Urine Microscopic WBC < 1 /HPF (0-3) Urine Squamous Epithelial Cells Few /hpf (<5) Urine Bacteria None seen /hpf (None Seen) Urine Glucose 4+ mg/dL (Normal) H Labs and/or images reviewed: Labs reviewed by me, Image(s) reviewed by me Assessment/Plan Assessment/Plan Acute on chronic respiratory failure likely due to COPD exacerbation azithromycin COPD exacerbation : Med neb treatment Lasix: Echocardiogram, cardiology consult Uncontrolled diabetes Acute on chronic CHF exacerbation History of GERD Acute hypokalemia Flu test negative COVID test negative Time spent 45 minutes Advanced Care planning time 20 minutes Patient is full code Plan discussed with: Patient Date of Service: Jul 27, 2024 Billing Provider: KAHLIL MENG MD Common Visit Codes: [id number] INP/OBS CARE(HIGH) Secondary Visit Codes: [id number] CARE PLAN 30 MINUTES KAHLIL MENG MD Jul 27, 2024 13:51
--- NOTE | 2024-07-27 17:33 | DVHINCON2 ---
Date Seen: Jul 27, 2024 Referring Physician MD Rafa Reason for Consultation CHF exacerbation History of Present Illness This is a 54-year-old male patient who presents to the emergency room with chief complaint of worsening shortness of breath for approximately one week. He came to the emergency room for further evaluation. At this time, cardiology is now being consulted for history of congestive heart failure. The patient denies any cardiac symptoms at time of assessment. No twelve lead electrocardiogram was done upon emergency room arrival. A twelve lead electrocardiogram was obtained at the time of assessment and reveals normal sinus rhythm without any sign ificant ST segment changes. Significant past medical history includes congestive heart failure, hypertension, dyslipidemia, COPD, obstructive sleep apnea without CPAP use at home, history of methamphetamine abuse (quit 5 years ago), heavy tobacco use, and obesity. Per previous medical records at this facility, the patient was found to have an ejection fraction as low as 25% in . At that time, the patient underwent a coronary angiogram without any catheter based intervention. Most recent echocardiogram from 12/24/23 reveals an improvement in ejection fraction now at 55%. 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 He does report medical compliance with his guideline directed medical therapy for CHF. Past Medical History Past medical history reviewed. No other significant than mentioned above. Past Surgical History Back surgery Right foot surgery Family History: Alcoholism G8 MOTHER Asthma G8 FATHER Cardiac pacemaker G8 FATHER Cardiovascular disease G8 FATHER Cirrhosis of liver G8 MOTHER Family history: Cardiovascular disease G8 MOTHER Heart valve abnormality G8 FATHER Family History Family history reviewed. Social History Patient has a 20 pack-year history, smokes approximately one pack per day Patient has a previous history of methamphetamine abuse, states he quit approximately five years ago Patient denies any alcohol use Allergies: Coded Allergies: Sulfa Drugs (Verified Allergy, Unknown, 09/25/22) Uncoded Allergies: shell fish (Adverse Reaction, Mild, 05/08/23) bloody nose Home Meds Active Scripts Azithromycin (ZITHROMAX TABLET) 250 Mg Tb, 250 MG PO DAILY for 4 Days, #4 TAB Prov:MEHNAZ STEWART MD 06/16/24 Methylprednisolone (Medrol Dosepak) 4 Mg [place], 4 MG PO UD, #21 TAB UAD Prov:MEHNAZ STEWART MD 06/16/24 Ipratropium [place] (Ipratropium [place]) 0.02 % [place], 0.5 % HHN Q6HP PRN, #120 ML Prov:MEHNAZ STEWART MD 01/20/24 Sacubitril-Valsartan (Entresto 24-26 mg) 1 Tab Tab, 1 TAB PO BID for 30 Days, #60 TAB Prov:MEHNAZ STEWART MD 12/26/23 Empagliflozin (Jardiance) 10 Mg Tab, 10 MG PO QAM for 30 Days, #30 TAB 5 Refills Prov:MEHNAZ STEWART MD 12/26/23 Albuterol Sulfate (Albuterol Sulfate Hfa) 108 Mcg/Act Aer, 1 PUFF PO Q4HR PRN for COPD for 30 Days, #1 AER Prov:MEHNAZ STEWART MD 12/26/23 Reported Medications Carvedilol (Carvedilol) 3.125 Mg Tab, 3.125 MG PO BID for 30 Days, MG 07/26/24 Hydrocodone-Acetaminophen (Hydrocodone Bitartrate/AC 10-325 mg) 1 Tab Tab, 1 TAB PO TID, TAB 12/24/23 Beclomethasone Dipropionate (Qvar Redihaler) 80 Mcg/Act Aer, 80 MCG IN DAILY, AER 12/24/23 Albuterol Sulfate (Albuterol Sulfate) 0.083 % Neb, 3 ML NEB Q6HR PRN for COPD 08/21/23 Rosuvastatin Calcium (Rosuvastatin Calcium) 10 Mg Tab, 1 TAB PO DAILY 05/03/23 Montelukast Sodium (MONTELUKAST SODIUM) 10 Mg Tab, 1 TAB PO DAILY 05/03/23 Gabapentin (Gabapentin) 600 Mg Tab, 600 MG PO BID for 30 Days, MG 08/30/22 Naloxegol Oxalate (Movantik) 25 Mg Tab, 1 TAB PO DAILY 03/03/22 Home Meds Home medications reviewed. Current Medications Current Medications Medications (Trade) Dose Ordered Sig/Santy Route PRN Reason Start Time Stop Time Status Last Admin Empaglifozin (Jardiance) 10 mg QAM PO 07/27/24 07:00 07/27/24 05:59 Montelukast Sodium (Singulair Tablet) 10 mg DAILY PO 07/27/24 10:00 07/27/24 09:12 Sacubitril/ Valsartan (Entresto 24-26 Mg tab) 1 tab BID PO 07/26/24 22:00 07/27/24 09:11 Patient Own Medication 1 tab DAILY PO 07/27/24 10:00 Atorvastatin Calcium (Lipitor) 40 mg DAILY PO 07/27/24 10:00 07/27/24 09:11 Budesonide (Pulmicort) 0.5 mg BID NEB 07/26/24 22:00 07/27/24 09:41 Famotidine (Pepcid Injection) 20 mg DAILY IV 07/27/24 10:00 07/27/24 09:11 Azithromycin 250 ml @ 125 mls/hr DAILY IV 07/27/24 10:00 07/27/24 09:10 Review of Systems Constitutional: No symptom reported Ears, Nose, & Throat: No symptom reported Eyes: No symptom reported Neurological: No symptoms reported Pulmonary/Respiratory: Shortness of breath Cardiovascular: No symptom reported Gastrointestinal: No symptom reported Genitourinary: No symptom reported Musculoskeletal: No symptom reported Skin: No symptom reported Psychiatric: No symptom reported Endocrine: No symptom reported Hematologic/Lymphatic: No symptom reported Vital Signs Vital Signs Date Time Temp Pulse Resp B/P (MAP) Pulse Ox O2 Delivery O2 Flow Rate FiO2 07/27/24 16:43 97.9 79 16 116/74 (88) 92 97.9 07/27/24 13:46 Room Air 07/27/24 13:46 0 21 Physical Exam General Appearance: Cooperative. Well-developed. Well-nourished. No acute distress. Pulmonary/Respiratory: Audible expiratory wheezes throughout all lung cohen Cardiovascular/Chest: Regular rate and rhythm. Peripheral Pulses: 2+ Radial (R). 2+ Radial (L). 2+ Pedal (R). 2+ Pedal (L) Abdominal Exam: Normal bowel sounds. Ankle Exam: Negative ankle edema Lower extremities: Negative lower extremity edema Neuro/Mental Status: A/OX4, coherent. Thoughts/Psych: Normal thought pattern. Appropriate mood and affect. Good judgment and insight. Appearance: No acute distress. Skin Exam: Normal inspection. Normal color. Warm and dry. Labs/Diagnostic Data Labs Test 07/27/24 16:02 07/27/24 12:58 07/27/24 06:12 07/26/24 11:33 Range/Units POC Glucose 209 H 70-106 mg/dl Urine Color Light-yellow Yellow Urine Clarity Clear Clear Urine pH 7.0 5.0-9.0 Urine Specific [place] 1.022 1.001-1.035 Urine Protein Negative Negative Urine Ketones Negative Negative Urine Blood Negative Negative /uL Urine Nitrite Negative Negative Urine Bilirubin Negative Negative Urine Urobilinogen Normal Negative mg/dL Urine Leukocyte Esterase Negative Negative /uL Urine RBC 2 0 - 3 /hpf Urine Microscopic WBC < 1 0-3 /HPF Urine Squamous Epithelial Cells Few <5 /hpf Urine Bacteria None seen None Seen /hpf Urine Glucose 4+ H Normal mg/dL Urine Opiates Screen Neg NEGATIVE Urine Fentanyl Screen Neg NEGATIVE Urine Barbiturates Screen Neg NEGATIVE Urine Phencyclidine Screen Neg NEGATIVE Urine Amphetamines Screen Neg NEGATIVE Urine Benzodiazepines Screen Neg NEGATIVE Urine Cocaine Screen Neg NEGATIVE Urine Cannabinoids Screen Neg NEGATIVE White Blood Count 14.7 #H 4.4-10.8 10^3/uL Red Blood Count 5.11 4.5-5.90 10^6/uL Hemoglobin 15.1 13.5-17.5 g/dL Hematocrit 45.0 41.0-53.0 % Mean Corpuscular Volume 88.1 80.0-100.0 fL Mean Corpuscular Hemoglobin 29.6 28.0-32.0 pg Mean Corpuscular Hemoglobin Concent 33.6 32.0-36.0 g/dL Red Cell Distribution Width 14.1 11.8-14.3 % Platelet Count 235 140-450 10^3/uL Mean Platelet Volume 7.9 6.9-10.8 fL Neutrophils (%) (Auto) 84.6 H 37.0-80.0 % Lymphocytes (%) (Auto) 10.3 10.0-50.0 % Monocytes (%) (Auto) 4.2 0.0-12.0 % Eosinophils (%) (Auto) 0.1 0.0-7.0 % Basophils (%) (Auto) 0.8 0.0-2.0 % Neutrophils # (Auto) 12.4 H 1.6-8.6 10 ^3/uL Lymphocytes # (Auto) 1.5 0.4-5.4 10 ^3/uL Monocytes # (Auto) 0.6 0-1.3 10 ^3/uL Eosinophils # (Auto) 0 0-0.8 10 ^3/uL Basophils # (Auto) 0.1 0-0.2 10 ^3/uL Nucleated Red Blood Cells 0.1 % Sodium Level 138 136-145 mmol/L Potassium Level 4.3 3.5-5.1 mmol/L Chloride Level 107 98-107 mmol/L Carbon Dioxide Level 22 20-31 mmol/L Anion Gap 9 5-15 Blood Urea Nitrogen 13 9-23 mg/dL Creatinine 0.90 0.700-1.30 mg/dL Glomerular Filtration Rate Calc 102 >90 mL/min BUN/Creatinine Ratio 14.4 10.0-20.0 Serum Glucose 191 H 74-106 mg/dL Calcium Level 9.9 8.7-10.4 mg/dL Total Bilirubin 0.3 0.2-1.0 mg/dL Aspartate Amino Transferase (AST) < 8 L 13-40 U/L Alanine Aminotransferase (ALT) 14 7-40 U/L Alkaline Phosphatase 81 46-116 U/L Total Protein 6.2 5.7-8.2 g/dL Albumin 4.2 3.2-4.8 g/dL Influenza Type A Antigen Negative Negative Influenza Type B Antigen Negative Negative SARS-CoV-2 Antigen (Rapid) Negative NEGATIVE Test 07/26/24 08:42 07/26/24 05:40 07/26/24 05:25 Range/Units Troponin I High Sensitivity 26 </=54 ng/L Hemoglobin A1c 6.3 H <5.7 % A1C B-Type Natriuretic Peptide 22.93 0-100 pg/mL Blood Gas Specimen Type Venous Blood Gas Sample Site Vbg - n/a Blood Gas Patient Temperature 37.0 Arterial Blood Date Drawn [id number] Merlin Test N/a Venous Blood pH 7.385 7.320-7.430 Venous Blood pCO2 at Patient Temp 36.0 L 38.0-54.0 mmHg Venous Blood pO2 at Patient Temp 51.7 H 23.0-48.0 mmHg Venous Blood HCO3 21.1 L 22.0-29.0 mmol/L Venous Blood Base Excess -3.3 L -2.0-3.0 mmol/L Blood Gas Modality Room air FiO2 % 21.0 Assessment Chronic HFimEF, NYHA class II Hypertension Dyslipidemia COPD exacerbation Obstructive sleep apnea without CPAP use History of methamphetamine abuse Heavy tobacco use Obesity Plan/Recommendation We will continue with the following plan/recommendations (Dr. Tuttle): Patient seen and examined at bedside with . At this time, we will proceed with obtaining a transthoracic echocardiogram to re-evaluate cardiac function as well as wall motion. A previous echocardiogram done on 12/24/2023 reveals an EF of 55%. We will continue with guideline directed medical therapy for CHF. Patient does not appear to be in CHF exacerbation at time of assessment. Chest x-ray shows clear lungs per report. BNP level on admission 22.93pg/mL. No signs of elevated JVP or peripheral edema. Continue with close Cardiac surveillance via telemetry monitoring. Thank you for allowing us to care for this patient. Please call with any questions or concerns. Critical care time spent: 38 minutes This medical document was created using an electronic medical record system with voice recognition software and computerized dictation system. Although this document has been carefully reviewed, there might still be some phonetic and typographical errors. Occasional wrong-word or ``sound-alike substitutions may have occurred due to the inherent limitations of voice recognition software. These areas are purely typographical due to imperfections of the software programs and do not reflect any compromise in the patient's medical care. Please read the chart carefully and recognize, using context, where these substitutions have occurred. Plan discussed with: Patient NYHA Physical activity limitations: Class2(Slight)fatigue,sob (palpitatns, angina w activityv) Date of Service: Jul 27, 2024 Billing Provider: CLEMENT TUTTLE MD Cardiology Common Codes: [id number] INP/OBS CARE (High) Cardiology Consultation Codes: [id number] CONSULT <45MIN LEANN PINEDA Jul 27, 2024 17:33
[2024-07-27] MEDS: CARVEDILOL 3.125 MG TAB PO SCH (23:31)
[2024-07-28] VITALS (19 sets, daily range): BP systolic 109–125; BP diastolic 59–79; PULSE 66–88; RESP 16–20; TEMP 97.5–98.3; O2SAT 92–97
[2024-07-28 07:17] LABS: Basophils # (auto) 0 10 ^3/uL (0-0.2); Eosinophils # (auto) 0 10 ^3/uL (0-0.8); Hematocrit 45.6 % (41.0-53.0); Hemoglobin 15.5 g/dL (13.5-17.5); Lymphocytes # (auto) 1.5 10 ^3/uL (0.4-5.4); Mean Corpuscular Hemoglobin 29.7 pg (28.0-32.0); Mean Corpuscular Hgb Conc. 34.1 g/dL (32.0-36.0); Mean Corpuscular Volume 87.2 fL (80.0-100.0); Monocytes # (auto) 0.6 10 ^3/uL (0-1.3); Neutrophils # (auto) 12.7 10 ^3/uL (1.6-8.6); Platelet Count (auto) 254 10^3/uL (140-450); Red Blood Cells 5.23 10^6/uL (4.5-5.90); Red Cell Distribution Width 14.2 % (11.8-14.3); White Blood Cell 14.8 10^3/uL (4.4-10.8)
[2024-07-28 07:25] LABS: Anion Gap 6 (5-15); Carbon Dioxide 26 mmol/L (20-31); Chloride 105 mmol/L (98-107); Potassium 4.2 mmol/L (3.5-5.1); Sodium 137 mmol/L (136-145)
[2024-07-28 07:26] LABS: Calcium 9.6 mg/dL (8.7-10.4)
[2024-07-28 07:31] LABS: BUN/Creatinine Ratio 19.1 (10.0-20.0); Blood Urea Nitrogen 17 mg/dL (9-23); Magnesium 2.2 mg/dL (1.6-2.6)
[2024-07-28 07:33] LABS: Cholesterol 161 mg/dL (< 200); HDL Cholesterol 45 mg/dL (40-59)
[2024-07-28 07:42] LABS: Glucose 147 mg/dL (74-106); LDL Cholesterol 104 mg/dL (< 100); Triglycerides 151 mg/dL (< 150)
--- NOTE | 2024-07-28 08:26 | DVHSR ---
APPROVED REPORT EXAM: Two-dimensional and M-mode echocardiogram with Doppler and color Doppler. Blood Pressure: 126/71 mmHg INDICATION CHF exacerbation RISK FACTORS Obesity: Height: 5'11", Weight: 245 DIMENSIONS LVDd5.7 (3.8-5.7cm)LA (2D)4.7 (1.9-4.0cm)Aortic Root3.7 (2.0-3.7cm) LVDs4.3 (2.5-4.0cm)LA (MM) (1.9-4.0cm)Aortic Cusp Exc2.2 (1.5-2.0cm) EF (%) 50.0 (55-70%)Rt. Atrium4.0 (1.9-4.0cm)Asc. Aorta cm IVSd1.3 (0.7-1.1cm)RV (D)3.5 (1.8-2.4cm) PWd1.2 (0.7-1.1cm) Mitral Valve MitralMitral Stenosis E wave0.91m/sMV Mean GR.mmHg A wave0.94m/sMV Peak GR.mmHg E/A ratio1.02D MVAcm2 DECEL [id number] 1/2 Timems Aortic Valve Aortic ValveAortic Stenosis V10.99m/Alfonso Mean GR.6mmHg V21.59m/Alfonso Peak GR.10mmHg LVOT Diameter2.1 (1.8-2.4cm)Doppler AVA2.16cm2 Pulmonic Valve V21.05m/s LEFT VENTRICLE The left ventricle is upper limit of normal in size. Ejection fraction is low normal and is estimate d at 50%. There is no gross wall motion abnormalities but endocardial definition is suboptimal. The re is [id number] concentric left ventricular hypertrophy. There is grade II diastolic dysfunct ion. E to E prime ratio is in the normal range. RIGHT VENTRICLE The right ventricle is of normal size. Systolic function is normal. ATRIA The left atrium is mildly dilated in size. Right atrium is of normal size. Intra-atrial septum appe ars to be normal. MITRAL VALVE Normal structure and function. No significant mitral regurgitation. PULMONIC VALVE Likely normal. TRICUSPID VALVE Normal structure and function. There is mild tricuspid regurgitation. PA systolic pressure isn't ad equately estimated. AORTIC VALVE Likely normal. GREAT VESSELS The aortic root is of normal size. Proximal ascending aorta isn't visualized. PERICARDIAL EFFUSION No significant effusion. IVC is dilated in size. Other Information Technically limited study due to body habitus. Conclusion Upper limit of normal left ventricular size and low-normal systolic function. Ejection fraction is estimated at 50%. Rhic-[id number] concentric left ventricular hypertrophy. Grade II diastolic dysfunction. Normal right ventricular size and systolic function. Mildly dilated left atrial chamber size. No hemodynamically significant valvular disease. PA systolic pressure isn't adequately estimated.
[2024-07-28] MEDS: SPIRONOLACTONE 25 MG TAB PO SCH (09:49)
--- NOTE | 2024-07-28 12:04 | DVHPN2 ---
Reviewed: Care Plan, H&P, Labs, Medications, Previous Orders, Radiology Changes from previous H/P or p: No Changes Eyes: No Pain, No Vision change, No Conjunctivae inflammation, No Eyelid inflammation, No Other, No Redness ENT: No Ear pain, No Ear discharge, No Nose pain, No Nose discharge, No Nose congestion, No Mouth pain, No Mouth swelling, No Throat pain, No Throat swelling, No Other Cardiovascular: No Chest Pain, No Palpitations, No Orthopnea, No Paroxysmal Noc. Dyspnea, No Edema, No Lt Headedness, No Other Respiratory: No Cough, No Dry; Shortness of breath; No SOB with excertion, No Wheezing, No Hemoptysis, No Pleuritic Pain, No Sputum, No Other Gastrointestinal: No Nausea, No Vomiting, No Abdominal Pain, No Diarrhea, No Constipation, No Melena, No Hematochezia, No Other Genitourinary: No Dysuria, No Frequency, No Incontinence, No Hematuria, No Retention, No Other Musculoskeletal: No other, No neck pain, No shoulder pain, No arm pain; back pain; No hand pain, No leg pain, No foot pain Skin: No Rash, No Lesions, No Jaundice, No Bruising, No Other Objective Vitals Vital Signs Date Time Temp Pulse Resp B/P (MAP) Pulse Ox O2 Delivery O2 Flow Rate FiO2 07/28/24 10:03 72 16 96 07/28/24 09:53 Room Air* 0 21 07/28/24 09:48 118/67 07/28/24 08:39 98.0 98.0 Intake/Output Intake and Output 07/28/24 07:00 Intake Total 2450 ml Output Total 1800 ml Balance 650 ml Intake Oral 2200 ml IV Total 250 ml Output Urine Total 1800 ml # Voids 11 # Bowel Movements 1 Medications Current Medications Medications Dose Ordered Sig/Santy Route Start Time Stop Time Status Last Admin Dose Admin Empaglifozin 10 mg QAM PO 07/27/24 07:00 07/28/24 05:31 10 MG Montelukast Sodium 10 mg DAILY PO 07/27/24 10:00 07/28/24 09:49 10 MG Sacubitril/ Valsartan 1 tab BID PO 07/26/24 22:00 07/28/24 09:49 1 TAB Gabapentin 600 mg BID PO 07/26/24 10:00 07/28/24 09:49 600 MG Patient Own Medication 1 tab DAILY PO 07/27/24 10:00 Atorvastatin Calcium 40 mg DAILY PO 07/27/24 10:00 07/28/24 09:49 40 MG Diagnostic Test (Pha) 1 strip ACHS 07/26/24 11:30 07/28/24 05:52 1 STRIP Insulin Human Regular ACHS SC 07/26/24 11:30 07/28/24 05:47 2 UNITS Dextrose 50 ml UD PRN IV 07/26/24 11:15 Albuterol 2.5 mg Q4HWA [facility] 07/26/24 14:00 07/28/24 09:53 2.5 MG Albuterol 2.5 mg Q2HPRN PRN NEB 07/26/24 11:15 Ipratropium [place] 0.5 mg Q4HWA NEB 07/26/24 14:00 07/28/24 09:53 0.5 MG Ipratropium [place] 0.5 mg Q2HPRN PRN NEB 07/26/24 11:15 Methylprednisolone Sodium Succinate 40 mg Q8HR IV 07/26/24 14:00 07/28/24 05:47 40 MG Budesonide 0.5 mg BID NEB 07/26/24 22:00 07/28/24 09:53 0.5 MG Famotidine 20 mg DAILY IV 07/27/24 10:00 07/28/24 09:48 20 MG Ondansetron HCl 4 mg Q4HP PRN IV 07/26/24 11:15 Acetaminophen 650 mg Q6HP PRN PO 07/26/24 11:15 Acetaminophen/ Hydrocodone Bitart 1 tab Q4HPRN PRN PO 07/26/24 11:30 07/28/24 05:31 1 TAB Acetaminophen/ Hydrocodone Bitart 1 tab TID PO 07/26/24 14:00 UNV Azithromycin 250 ml @ 125 mls/hr DAILY IV 07/27/24 10:00 07/28/24 09:45 125 MLS/HR Carvedilol 3.125 mg Q12HR PO 07/27/24 22:00 07/28/24 09:48 3.125 MG Spironolactone 25 mg DAILY PO 07/28/24 10:00 07/28/24 09:49 25 MG Laboratory Results Laboratory Tests 07/28/24 06:28 Chemistry Test 1/27/25 06:28 Calcium Level 9.6 mg/dL (8.7-10.4) Magnesium Level 2.2 mg/dL (1.6-2.6) Lipid panel Test 07/28/24 06:28 Cholesterol Level 161 mg/dL (< 200) HDL Cholesterol 45 mg/dL (40-59) Triglycerides Level 151 mg/dL (< 150) H HgA1c, TSH Test 07/28/24 06:28 Thyroid Stimulating Hormone (TSH) 0.32 uIU/mL (0.55-4.78) L Urinalysis Test 07/27/24 12:58 Urine Color Light-yellow (Yellow) Urine Clarity Clear (Clear) Urine pH 7.0 (5.0-9.0) Urine Specific [place] 1.022 (1.001-1.035) Urine Protein Negative (Negative) Urine Ketones Negative (Negative) Urine Blood Negative /uL (Negative) Urine Nitrite Negative (Negative) Urine Bilirubin Negative (Negative) Urine Urobilinogen Normal mg/dL (Negative) Urine Leukocyte Esterase Negative /uL (Negative) Urine RBC 2 /hpf (0 - 3) Urine Microscopic WBC < 1 /HPF (0-3) Urine Squamous Epithelial Cells Few /hpf (<5) Urine Bacteria None seen /hpf (None Seen) Urine Glucose 4+ mg/dL (Normal) H Labs and/or images reviewed: Labs reviewed by me, Image(s) reviewed by me Assessment/Plan Assessment/Plan Acute on chronic respiratory failure likely due to COPD exacerbation azithromycin COPD exacerbation : Med neb treatment Lasix: Uncontrolled diabetes Acute on chronic CHF exacerbation cardiology consult appreciated echocardiogram 50 % ejection fraction History of GERD Acute hypokalemia Hypertension Hypercholesterolemia Obstructive sleep apnea with CPAP use History of meth abuse Chronic smoker: Counseling Flu test negative COVID test negative Time spent 45 minutes Plan discussed with: Patient My Orders Orders - KAHLIL MENG MD Procedure Category Date Status Time * Cardiology Consult CONS 07/27/24 Transmitted 13:51 Echo 2d Mode Cardiac US 07/27/24 Resulted DOP 13:52 Date of Service: Jul 28, 2024 Billing Provider: KAHLIL MENG MD Common Visit Codes: [id number] INP/OBS CARE(HIGH) KAHLIL MENG MD Jul 28, 2024 12:04
--- NOTE | 2024-07-28 15:17 | ECG ---
[facility] Test Date: 2024-07-27 Test Time: 16:46:01 Pat Name: ANGÉLICA GR Department: Room: 0270 B Gender: M Recovery Rn: lorenzo : 1970 Requested By: LEANN PINEDA Order Number: [id number] Reading MD: Veronica Ramirez Measurements Intervals [place] Rate: 74 P: 72 ID: [id number] QRS: -63 QRSD: 131 T: -4 QT: 404 QTc: 449 Interpretive Statements Sinus rhythm Nonspecific IVCD with LAD Left ventricular hypertrophy Borderline T abnormalities, inferior leads Partial missing lead(s): V4 Electronically Signed On 07-30-2024 10:06:50 PST by Veronica Ramirez Please click the below link to view image of tracing.
--- NOTE | 2024-07-28 16:06 | DVHPN2 ---
Consult Progress Note Date Seen: Jul 28, 2024 Subjective Review of Systems: CVS:Normal, RESPIRATORY:Normal, NEURO:Normal Objective vital signs Vital Sign Date Time Temp Pulse Resp B/P (MAP) Pulse Ox O2 Delivery O2 Flow Rate FiO2 07/28/24 13:11 98.0 78 16 118/68 (85) 92 98.0 07/28/24 09:53 Room Air* 0 21 Total Intake and Output 07/27/24 07/27/24 07/28/24 15:00 23:00 07:00 Intake Total 250 ml 1500 ml 700 ml Output Total 1800 ml Balance 250 ml -300 ml 700 ml medications Current Medications Medications Dose Ordered Sig/Santy Route Start Time Stop Time Status Last Admin Dose Admin Empaglifozin 10 mg QAM PO 07/27/24 07:00 07/28/24 05:31 10 MG Montelukast Sodium 10 mg DAILY PO 07/27/24 10:00 07/28/24 09:49 10 MG Sacubitril/ Valsartan 1 tab BID PO 07/26/24 22:00 07/28/24 09:49 1 TAB Gabapentin 600 mg BID PO 07/26/24 10:00 07/28/24 09:49 600 MG Patient Own Medication 1 tab DAILY PO 07/27/24 10:00 Atorvastatin Calcium 40 mg DAILY PO 07/27/24 10:00 07/28/24 09:49 40 MG Diagnostic Test (Pha) 1 strip ACHS 07/26/24 11:30 07/28/24 12:08 1 STRIP Insulin Human Regular ACHS SC 07/26/24 11:30 07/28/24 12:37 4 UNITS Dextrose 50 ml UD PRN IV 07/26/24 11:15 Albuterol 2.5 mg Q4HWA NEB 07/26/24 14:00 07/28/24 14:55 2.5 MG Albuterol 2.5 mg Q2HPRN PRN NEB 07/26/24 11:15 Ipratropium [place] 0.5 mg Q4HWA NEB 07/26/24 14:00 07/28/24 14:55 0.5 MG Ipratropium [place] 0.5 mg Q2HPRN PRN NEB 07/26/24 11:15 Methylprednisolone Sodium Succinate 40 mg Q8HR IV 07/26/24 14:00 07/28/24 14:22 40 MG Budesonide 0.5 mg BID NEB 07/26/24 22:00 07/28/24 09:53 0.5 MG Famotidine 20 mg DAILY IV 07/27/24 10:00 07/28/24 09:48 20 MG Ondansetron HCl 4 mg Q4HP PRN IV 07/26/24 11:15 Acetaminophen 650 mg Q6HP PRN PO 07/26/24 11:15 Acetaminophen/ Hydrocodone Bitart 1 tab Q4HPRN PRN PO 07/26/24 11:30 07/28/24 05:31 1 TAB Acetaminophen/ Hydrocodone Bitart 1 tab TID PO 07/26/24 14:00 UNV Azithromycin 250 ml @ 125 mls/hr DAILY IV 07/27/24 10:00 07/28/24 09:45 125 MLS/HR Carvedilol 3.125 mg Q12HR PO 07/27/24 22:00 07/28/24 09:48 3.125 MG Spironolactone 25 mg DAILY PO 07/28/24 10:00 07/28/24 09:49 25 MG Examination: LUNGS:Abnormal (Expiratory wheezing), CVS:Normal, NEURO:Normal laboratory and microbiology Laboratory Tests 07/28/24 06:28 Test 07/28/24 06:28 Range/Units Serum Glucose 147 H 74-106 mg/dL Problem List/Assessment/Plan Problem List/Assessment/Plan Chronic compensated HFimEF, NYHA class II COPD exacerbation with heavy tobacco use Hypertension Dyslipidemia Obstructive sleep apnea without CPAP use History of methamphetamine abuse Obesity Plan/Recommendation (Dr. Ramirez) Transthoracic echocardiogram revealed EF 50% with [id number] concentric left ventricular hypertrophy and grade 2 diastolic dysfunction. The patient presents with chronic compensated CHF, euvolemic, and no evidence of active CHF exacerbation. Continue GDMT for CHF and uptitrate as tolerated. Continue lipid-lowering agent. Follow-up with primary gantry rigger as scheduled. There is no further cardiac workup indicated at this time. Kindly call if in need to re-consult. Thank you for allowing us to participate in this patient's care. This medical document was created using an electronic medical record system with voice recognition software and computerized dictation system. Although this document has been carefully reviewed, there might still be some phonetic and typographical errors. Occasional wrong-word or ``sound-alike substitutions may have occurred due to the inherent limitations of voice recognition software. These areas are purely typographical due to imperfections of the software programs and do not reflect any compromise in the patient's medical care. Please read the chart carefully and recognize, using context, where these substitutions have occurred. Plan discussed with: Patient, Other Date of Service: Jul 28, 2024 Billing Provider: PATRICIA PHILLIPS Cardiology Common Codes: [id number] INP/OBS CARE(Mod) PATRICIA PHILLIPS Jul 28, 2024 16:06
[2024-07-29] VITALS (13 sets, daily range): BP systolic 106–127; BP diastolic 61–71; PULSE 57–77; RESP 16–18; TEMP 36.9; O2SAT 92–98
--- NOTE | 2024-07-29 10:52 | DVHPN2 ---
Reviewed: Care Plan, H&P, Labs, Medications, Previous Orders, Radiology Changes from previous H/P or p: No Changes Eyes: No Pain, No Vision change, No Conjunctivae inflammation, No Eyelid inflammation, No Other, No Redness ENT: No Ear pain, No Ear discharge, No Nose pain, No Nose discharge, No Nose congestion, No Mouth pain, No Mouth swelling, No Throat pain, No Throat swelling, No Other Cardiovascular: No Chest Pain, No Palpitations, No Orthopnea, No Paroxysmal Noc. Dyspnea, No Edema, No Lt Headedness, No Other Respiratory: No Cough, No Dry; Shortness of breath; No SOB with excertion, No Wheezing, No Hemoptysis, No Pleuritic Pain, No Sputum, No Other Gastrointestinal: No Nausea, No Vomiting, No Abdominal Pain, No Diarrhea, No Constipation, No Melena, No Hematochezia, No Other Genitourinary: No Dysuria, No Frequency, No Incontinence, No Hematuria, No Retention, No Other Musculoskeletal: No other, No neck pain, No shoulder pain, No arm pain; back pain; No hand pain, No leg pain, No foot pain Skin: No Rash, No Lesions, No Jaundice, No Bruising, No Other Objective Vitals Vital Signs Date Time Temp Pulse Resp B/P (MAP) Pulse Ox O2 Delivery O2 Flow Rate FiO2 07/29/24 10:36 68 106/66 07/29/24 09:10 16 97 07/29/24 09:04 Room Air* 0 21 07/29/24 08:32 98.4 98.4 Intake/Output Intake and Output 07/29/24 07:00 Intake Total 2150 ml Output Total 2600 ml Balance -450 ml Intake Oral 1900 ml IV Total 250 ml Output Urine Total 2600 ml # Voids 8 # Bowel Movements 1 Medications Current Medications Medications Dose Ordered Sig/Santy Route Start Time Stop Time Status Last Admin Dose Admin Empaglifozin 10 mg QAM PO 07/27/24 07:00 07/29/24 06:29 10 MG Montelukast Sodium 10 mg DAILY PO 07/27/24 10:00 07/29/24 10:36 10 MG Sacubitril/ Valsartan 1 tab BID PO 07/26/24 22:00 07/29/24 10:35 1 TAB Gabapentin 600 mg BID PO 07/26/24 10:00 07/29/24 10:36 600 MG Patient Own Medication 1 tab DAILY PO 07/27/24 10:00 Atorvastatin Calcium 40 mg DAILY PO 07/27/24 10:00 07/29/24 10:36 40 MG Diagnostic Test (Pha) 1 strip ACHS 07/26/24 11:30 07/29/24 06:29 1 STRIP Insulin Human Regular ACHS SC 07/26/24 11:30 07/29/24 06:54 2 UNITS Dextrose 50 ml UD PRN IV 07/26/24 11:15 Albuterol 2.5 mg Q4HWA NEB 07/26/24 14:00 07/29/24 09:04 2.5 MG Albuterol 2.5 mg Q2HPRN PRN NEB 07/26/24 11:15 Ipratropium [place] 0.5 mg Q4HWA NEB 07/26/24 14:00 07/29/24 09:04 0.5 MG Ipratropium [place] 0.5 mg Q2HPRN PRN NEB 07/26/24 11:15 Methylprednisolone Sodium Succinate 40 mg Q8HR IV 07/26/24 14:00 07/29/24 06:29 40 MG Budesonide 0.5 mg BID NEB 07/26/24 22:00 07/29/24 05:53 0.5 MG Famotidine 20 mg DAILY IV 07/27/24 10:00 07/29/24 10:35 20 MG Ondansetron HCl 4 mg Q4HP PRN IV 07/26/24 11:15 Acetaminophen 650 mg Q6HP PRN PO 07/26/24 11:15 Acetaminophen/ Hydrocodone Bitart 1 tab Q4HPRN PRN PO 07/26/24 11:30 07/28/24 21:20 1 TAB Acetaminophen/ Hydrocodone Bitart 1 tab TID PO 07/26/24 14:00 UNV Azithromycin 250 ml @ 125 mls/hr DAILY IV 07/27/24 10:00 07/29/24 10:37 125 MLS/HR Carvedilol 3.125 mg Q12HR PO 07/27/24 22:00 07/29/24 10:36 3.125 MG Spironolactone 25 mg DAILY PO 07/28/24 10:00 07/29/24 10:35 25 MG Laboratory Results Laboratory Tests 07/28/24 06:28 Urinalysis Test 07/27/24 12:58 Urine Color Light-yellow (Yellow) Urine Clarity Clear (Clear) Urine pH 7.0 (5.0-9.0) Urine Specific [place] 1.022 (1.001-1.035) Urine Protein Negative (Negative) Urine Ketones Negative (Negative) Urine Blood Negative /uL (Negative) Urine Nitrite Negative (Negative) Urine Bilirubin Negative (Negative) Urine Urobilinogen Normal mg/dL (Negative) Urine Leukocyte Esterase Negative /uL (Negative) Urine RBC 2 /hpf (0 - 3) Urine Microscopic WBC < 1 /HPF (0-3) Urine Squamous Epithelial Cells Few /hpf (<5) Urine Bacteria None seen /hpf (None Seen) Urine Glucose 4+ mg/dL (Normal) H Labs and/or images reviewed: Labs reviewed by me, Image(s) reviewed by me Assessment/Plan Assessment/Plan Acute on chronic respiratory failure likely due to COPD exacerbation azithromycin COPD exacerbation : Med neb treatment Lasix: Uncontrolled diabetes Acute on chronic CHF, no exacerbation, cardiology consult appreciated echocardiogram 50 % ejection fraction History of GERD Acute hypokalemia Hypertension Hypercholesterolemia Obstructive sleep apnea with CPAP use History of meth abuse Chronic smoker: Counseling Flu test negative COVID test negative Time spent 45 minutes Cardiology cleared for discharge Plan discussed with: Patient Date of Service: Jul 29, 2024 Billing Provider: KAHLIL MENG MD Common Visit Codes: [id number] INP/OBS CARE(HIGH) KAHLIL MENG MD Jul 29, 2024 10:52
[2024-07-29] MEDS ORDERED: SACU1TAB PO (10:54)
[2024-07-29] MEDS ORDERED: AZIT500T66 PO (10:54)
[2024-07-29] MEDS ORDERED: SPIR25TA PO (10:54)
--- NOTE | 2024-07-29 11:02 | DVHDS2 ---
Discharge Summary Date of Admission Jul 26, 2024 at 11:02 Date of Discharge: Jul 29, 2024 Admitting Diagnosis Shortness of breath Wounds: None Labs/Diagnostic Data: Laboratory Results Test 07/29/24 06:34 07/28/24 06:28 07/27/24 12:58 07/27/24 06:12 POC Glucose 141 mg/dl (70-106) White Blood Count 14.8 10^3/uL (4.4-10.8) Red Blood Count 5.23 10^6/uL (4.5-5.90) Hemoglobin 15.5 g/dL (13.5-17.5) Hematocrit 45.6 % (41.0-53.0) Mean Corpuscular Volume 87.2 fL (80.0-100.0) Mean Corpuscular Hemoglobin 29.7 pg (28.0-32.0) Mean Corpuscular Hemoglobin Concent 34.1 g/dL (32.0-36.0) Red Cell Distribution Width 14.2 % (11.8-14.3) Platelet Count 254 10^3/uL (140-450) Mean Platelet Volume 7.7 fL (6.9-10.8) Neutrophils (%) (Auto) 86.0 % (37.0-80.0) Lymphocytes (%) (Auto) 10.0 % (10.0-50.0) Monocytes (%) (Auto) 4.0 % (0.0-12.0) Eosinophils (%) (Auto) 0.0 % (0.0-7.0) Basophils (%) (Auto) 0.0 % (0.0-2.0) Neutrophils # (Auto) 12.7 10 ^3/uL (1.6-8.6) Lymphocytes # (Auto) 1.5 10 ^3/uL (0.4-5.4) Monocytes # (Auto) 0.6 10 ^3/uL (0-1.3) Eosinophils # (Auto) 0 10 ^3/uL (0-0.8) Basophils # (Auto) 0 10 ^3/uL (0-0.2) Nucleated Red Blood Cells 0.0 % Sodium Level 137 mmol/L (136-145) Potassium Level 4.2 mmol/L (3.5-5.1) Chloride Level 105 mmol/L (98-107) Carbon Dioxide Level 26 mmol/L (20-31) Anion Gap 6 (5-15) Blood Urea Nitrogen 17 mg/dL (9-23) Creatinine 0.89 mg/dL (0.700-1.30) Glomerular Filtration Rate Calc 102 mL/min (>90) BUN/Creatinine Ratio 19.1 (10.0-20.0) Serum Glucose 147 mg/dL (74-106) Calcium Level 9.6 mg/dL (8.7-10.4) Magnesium Level 2.2 mg/dL (1.6-2.6) Triglycerides Level 151 mg/dL (< 150) Cholesterol Level 161 mg/dL (< 200) LDL Cholesterol 104 mg/dL (< 100) HDL Cholesterol 45 mg/dL (40-59) Thyroid Stimulating Hormone (TSH) 0.32 uIU/mL (0.55-4.78) Urine Color Light-yellow (Yellow) Urine Clarity Clear (Clear) Urine pH 7.0 (5.0-9.0) Urine Specific [place] 1.022 (1.001-1.035) Urine Protein Negative (Negative) Urine Ketones Negative (Negative) Urine Blood Negative /uL (Negative) Urine Nitrite Negative (Negative) Urine Bilirubin Negative (Negative) Urine Urobilinogen Normal mg/dL (Negative) Urine Leukocyte Esterase Negative /uL (Negative) Urine RBC 2 /hpf (0 - 3) Urine Microscopic WBC < 1 /HPF (0-3) Urine Squamous Epithelial Cells Few /hpf (<5) Urine Bacteria None seen /hpf (None Seen) Urine Glucose 4+ mg/dL (Normal) Urine Opiates Screen Neg (NEGATIVE) Urine Fentanyl Screen Neg (NEGATIVE) Urine Barbiturates Screen Neg (NEGATIVE) Urine Phencyclidine Screen Neg (NEGATIVE) Urine Amphetamines Screen Neg (NEGATIVE) Urine Benzodiazepines Screen Neg (NEGATIVE) Urine Cocaine Screen Neg (NEGATIVE) Urine Cannabinoids Screen Neg (NEGATIVE) Total Bilirubin 0.3 mg/dL (0.2-1.0) Aspartate Amino Transferase (AST) < 8 U/L (13-40) Alanine Aminotransferase (ALT) 14 U/L (7-40) Alkaline Phosphatase 81 U/L (46-116) Total Protein 6.2 g/dL (5.7-8.2) Albumin 4.2 g/dL (3.2-4.8) Test 07/26/24 11:33 07/26/24 08:42 07/26/24 05:40 07/26/24 05:25 Influenza Type A Antigen Negative (Negative) Influenza Type B Antigen Negative (Negative) SARS-CoV-2 Antigen (Rapid) Negative (NEGATIVE) Troponin I High Sensitivity 26 ng/L (</=54) Hemoglobin A1c 6.3 % A1C (<5.7) B-Type Natriuretic Peptide 22.93 pg/mL (0-100) Blood Gas Specimen Type Venous Blood Gas Sample Site Vbg - n/a Blood Gas Patient Temperature 37.0 Arterial Blood Date Drawn [id number] Merlin Test N/a Venous Blood pH 7.385 (7.320-7.430) Venous Blood pCO2 at Patient Temp 36.0 mmHg (38.0-54.0) Venous Blood pO2 at Patient Temp 51.7 mmHg (23.0-48.0) Venous Blood HCO3 21.1 mmol/L (22.0-29.0) Venous Blood Base Excess -3.3 mmol/L (-2.0-3.0) Blood Gas Modality Room air FiO2 % 21.0 Other Laboratory Tests 07/28/24 06:28 Brief Hx & Hospital Course: 54-year-old male with a history of COPD diabetes CHF GERD hypertension hypercholesterolemia obstructive sleep apnea using CPAP history of meth abuse chronic current smoker came in for shortness of breath. Found to have congestive heart failure not in exacerbation echo 50 percent ejection fraction continued on Lasix and other home medications were CHF seen by Cardiology advised no further cardiac workup possible community-acquired pneumonia treated with the azithromycin COPD exacerbation treated with a med neb treatment flu test negative COVID test negative advised to quit smoking and using methamphetamine discharged home in stable condition. He will follow up with his primary Dr Galeano and manager of loss prevention operations. Consults/Reason for consult Cardiology Operations or Procedures Echocardiogram Condition at Discharge: Fair Final Diagnosis/Problems List Acute on chronic respiratory failure likely due to COPD exacerbation azithromycin COPD exacerbation : Med neb treatment Lasix: Uncontrolled diabetes Acute on chronic CHF, no exacerbation, cardiology consult appreciated echocardiogram 50 % ejection fraction History of GERD Acute hypokalemia Hypertension Hypercholesterolemia Obstructive sleep apnea with CPAP use History of meth abuse Chronic smoker: Counseling Flu test negative COVID test negative Discharge Disposition: Home Discharge Instruct/Medications Diet: Cardiac 2g Na,low cholest Activity: Light activity Follow Up/Referral: Resume all previous home medications Follow up with your primary Dr Dr. Brothersi Follow up with your manager of loss prevention operations stop Doing methamphetamine Medications: Entresto azithromycin spironolactone Transmitted to [facility] 35 (Time Taken for discharge summary 35 minutes) Discharge Statement: "Patient was advised to return to the ER or call 911 if any headaches, dizziness, shortness of breath, chest pain, abdominal pain, bleeding, fevers, or worsening of medical condition. Patient was counseled about treatment plan, medications, possible side effects, patientverbalized understanding. All questions were answered to the best of my ability. This discharge took greater then 30 minutes in planning, reviewing documentation, counseling the patient, and discussing with other team members." ASSESSMENT ASSESSMENT Hospital Course Improved Assessment Acute on chronic respiratory failure likely due to COPD exacerbation azithromycin COPD exacerbation : Med neb treatment Lasix: Uncontrolled diabetes Acute on chronic CHF, no exacerbation, cardiology consult appreciated echocardiogram 50 % ejection fraction History of GERD Acute hypokalemia Hypertension Hypercholesterolemia Obstructive sleep apnea with CPAP use History of meth abuse Chronic smoker: Counseling Flu test negative COVID test negative Date of Service: Jul 29, 2024 Billing Provider: KAHLIL MENG MD Common Visit Codes: [id number] DISCH DAY >30min KAHLIL MENG MD Jul 29, 2024 11:02
== END 2024-07-29 14:19 | disposition home or self-care (01) | DRG 194 ==
LOC: ER 04:53 → OVERFLOW 11:02 → WEST WING 11:06
PROVIDERS: ATTEND Family Medicine
DX: I11.0 Hypertensive heart disease with heart failure (principal); J96.20 Acute and chronic respiratory failure, unspecified whether with hypoxia or hypercapnia; J43.8 Other emphysema; E11.65 Type 2 diabetes mellitus with hyperglycemia; D72.829 Elevated white blood cell count, unspecified; E66.9 Obesity, unspecified; I50.33 Acute on chronic diastolic (congestive) heart failure; E78.00 Pure hypercholesterolemia, unspecified; Z20.822 Contact with and (suspected) exposure to COVID-19; J44.0 Chronic obstructive pulmonary disease with (acute) lower respiratory infection; G47.33 Obstructive sleep apnea (adult) (pediatric); E87.6 Hypokalemia; F15.10 Other stimulant abuse, uncomplicated; F17.200 Nicotine dependence, unspecified, uncomplicated; K21.9 Gastro-esophageal reflux disease without esophagitis; T38.0X5A Adverse effect of glucocorticoids and synthetic analogues, initial encounter; Z82.49 Family history of ischemic heart disease and other diseases of the circulatory system; Z82.5 Family history of asthma and other chronic lower respiratory diseases; Z83.3 Family history of diabetes mellitus; Y92.89 Other specified places as the place of occurrence of the external cause; J44.1 Chronic obstructive pulmonary disease with (acute) exacerbation; Z68.33 Body mass index [BMI] 33.0-33.9, adult
CPT/HCPCS: 36415; 36600; 71045; 80048; 80053; 80061; 80307; 81001; 82805; 82962; 83036; 83735; 83880; 84443; 84484; 85025; 87426; 87804; 93005; 93306; 94640; 96374; 99291; G0378; J1815; J3490